=== PATIENT | male | born 1940 | race Caucasian/White ===

== ENCOUNTER 2022-04-24 10:53 | Observation (INO) | payer MEDICARE, SELFPAY ==
[2022-04-24] VITALS (24 sets, daily range): BP systolic 133–172; BP diastolic 81–113; PULSE 61–94; RESP 12–32; TEMP 36.3–37.3; O2SAT 90–95; BMI 22.7
--- NOTE | 2022-04-24 11:03 | CT_ITS ---
WS: [id number] CT chest wo con [id number] REASON FOR EXAM: fall/ R ribs and R thoracic back pain IV CONTRAST ADMINISTERED: None. TOTAL EXAM DLP: 687.[address] scans at [facility] use at least one of these dose optimization techniques: automat ed exposure control; mA and/or kV adjustment per patient size (includes targeted exams where dose is matched to clinical indication); or iterative reconstruction. FINDINGS: Significant tortuosity and ectasia of the ascending and descending thoracic aorta. No focal aneurysma l dilatation. Maximum diameter of the ascending aorta 4.5 cm. Maximum diameter of the descending thor acic aorta 4 cm. No mediastinal mass, hemorrhage, or adenopathy. No hilar adenopathy. Moderate changes of central lobar emphysema. Consolidation in the posterior right lower lung associated with a high attenuation pleural fluid smal l/moderate volume. No pneumothorax. There are mild/moderate displaced acute fractures of right seventh and eighth ribs posterior laterall y. There is an oblique fracture through the inferior most aspect of the right scapula. There is moderate degenerative spondylosis within the thoracic spine. No compression deformity or oth er significant vertebral body abnormality. CT/CT chest wo con [id number] IMPRESSION: Significant tortuosity and ectasia of the thoracic aorta and four-chamber cardi ac enlargement. Right rib and scapular fractures. Small to moderate volume hemothorax with no pneumothorax identified. Consolidation in the right lower lobe.
--- NOTE | 2022-04-24 11:03 | ED_ITS ---
HPI - General Adult General: Chief complaint: Fall Stated complaint: fall, side pain Time Seen by Provider: 04/24/22 10:59 History of Present Illness: Patient is a 81-year-old male with no known past medical history presents the emergency after an episode of fall. Patient tells me that he was taking a shower yesterday when he slipped and fell and hurt his right side. Patient complains of right rib pain and right upper back pain. Patient cannot remember whether he hit his head. Patient denies LOC or any anticoagulation use. Patient denies any associated chest pain, shortness or palpitation prior to the episode of fall. No other complaints of pain more. Onset: 845pm Duration:once Location:home Severity:moderate Associated symptoms: Reports chest pain (+R lateral chest pain); Deny dyspnea, nausea, rash, palpitations or vomiting Review of Systems Const: Denies: fever(s) or chills Eyes: Denies: change in vision ENMT: Denies: mouth pain Card: Reports: chest pain (+R lateral chest pain); Denies: palpitations Resp: Denies: dyspnea or non-productive cough GI: Denies: abdominal pain, nausea, vomiting or diarrhea : Denies: dysuria Musc: Reports: back pain (+thoracic back pain) and other (+R sided rib pain); Denies: extremity pain Skin/Breast: Denies: rash or new lesions Neuro: Denies: weakness in extremities Psych: Reports: other (Normal mood) Andres/Lymph: Denies: easy bruising [facility] ED PFSH: Medical History (Updated 04/24/22 @ 23:14 by Jennifer Lagunas RN) No pertinent past medical history Social History (Updated 04/24/22 @ 23:12 by Jennifer Lagunas RN) Smoking and tobacco status: never smoked Alcohol intake: current Alcohol intake frequency: few times a month Desire information about alcohol rehabilitation?: No Substance/Drug Use: never Physical Exam Const: COMMON NORMALS: alert HENMT: COMMON NORMALS: atraumatic HEAD & SCALP: atraumatic MOUTH: moist mucous membranes not abnormal Eye: COMMON NORMALS: EOMs intact bilaterally and conjunctivae normal CONJUNCTIVA: Yes conjunctivae normal Neck/C-Spine: COMMON NORMALS: full ROM and supple Chest: OTHER: +moderate R lateral chest tenderness to palpation Resp: COMMON NORMALS: normal respiratory effort and clear to auscultation bilaterally AUSCULTATION: clear to auscultation bilaterally Cardio: COMMON NORMALS: regular rate RATE: regular rate GI: COMMON NORMALS: Soft to palpation and non-tender PALPATION: Yes Soft to palpation Extremity: COMMON NORMALS: full ROM OTHER: +L forearm skin tear Neuro: SENSORIUM/ORIENTATION: Yes alert MOTOR EXAM: No Abnormal motor strength present and Other motor observations present (no focal motor deficits) Psych: COMMON NORMALS: speech normal SPEECH: Yes normal speech MOOD & AFFECT: Yes euthymic mood Course Vital Signs: Vital signs: Vital Signs Temperature 97.7 F 04/26/22 07:00 Pulse Rate 77 04/26/22 15:28 Respiratory Rate 17 04/26/22 18:26 Blood Pressure 116/70 04/26/22 16:00 Pulse Oximetry 93 04/26/22 15:28 Oxygen Delivery Me thod 04/26/22 15:28 Oxygen Flow Rate 2 04/26/22 15:28 MDM - General Adult Medical Decision Making Patient is a 81-year-old male with no known past medical history presents the emergency after an episode of fall with complaints of right lateral ribs and back pain. On physical exam, patient is moderate tenderness palpation over the right lateral chest and back area. Imaging study showed multiple right-sided rib fractures scapular fracture and mild to moderate hemothorax without pneumothorax. I discussed case with general surgeon Dr. Raphael who will follow patient and recommended observation. Patient required multiple doses of pain medicine with improvement in pain. He continues to be satting well on room air. Disposition: admission Lab Data : 04/26/22 03:50 04/26/22 03:[address] 04/24/22 11:03 IMPRESSION: Significant tortuosity and ectasia of the thoracic aorta and four-chamber cardiac enlargement. Right rib and scapular fractures. Small to moderate volume hemothorax with no pneumothorax identified. Consolidation in the right lower lobe. Head CT 04/24/22 11:03 IMPRESSION: No acute intracranial abnormality. Forearm X-Ray 04/24/22 11:38 IMPRESSION: No acute abnormality. Abdomen/Pelvis CT 04/24/22 12:02 IMPRESSION: No acute abnormality of the pelvis or abdomen including bony structure. Incidental findings in the abdomen and pelvis as above. 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 There is no acute abnormality of the thoracic aorta. The hemothorax is due to the rib fracture. There is a small amount of subcutaneous emphysema and a small amount of air in the right pleural space associated with the rib fractures unchanged from the noncontrast exam. Chest X-Ray 04/26/22 08:33 IMPRESSION: 1. Mildly displaced right 7th and 8th rib fractures are similar to the prior study. 2. No definite residual right pleural effusion is seen. Evaluation for pleural effusion/hemothorax is suboptimal with a single portable AP view of the chest. Laboratory Results WBC 7.9 10^3/uL (4.0-10.0) 04/24/22 11:30 RBC 5.27 10^6/uL (4.1-5.3) 04/24/22 11:30 Hgb 17.0 g/dL (11.7-16.6) H 04/24/22 11:30 Hct 50.5 % (42.0-52.0) 04/24/22 11:30 MCV 95.8 fl (80-94) H 04/24/22 11:30 MCH 32.3 pg (28.0-34.0) 04/24/22 11:30 MCHC 33.7 g/dL (30.0-36.0) 04/24/22 11:30 RDW 13.6 % (12.1-15.1) 04/24/22 11:30 Plt Count 156 10^3/cmm (130-400) 04/24/22 11:30 MPV 12.4 fL (7.4-10.4) H 04/24/22 11:30 Neut % (Auto) 74.2 % 04/24/22 11:30 Lymph % (Auto) 16.3 % 04/24/22 11:30 [place] % (Auto) 8.7 % 04/24/22 11:30 Eos % (Auto) 0.0 % 04/24/22 11:30 Baso % (Auto) 0.4 % 04/24/22 11:30 Neut # (Auto) 5.84 10^3/uL (1.8-7.7) 04/24/22 11:30 Lymph # (Auto) 1.3 10^3/uL (0.8-4.8) 04/24/22 11:30 [place] # (Auto) 0.7 10^3/uL (0.2-0.9) 04/24/22 11:30 Eos # (Auto) 0.0 10^3/uL (0.0-0.8) 04/24/22 11:30 Baso # (Auto) 0.0 10^3/uL (0.0-0.1) 04/24/22 11:30 Nucleated RBC % (auto) 0 % 04/24/22 11:30 Nucleated RBCs # 0.0 /100WBC 04/24/22 11:30 Sodium 131 mmol/L (136-145) L 04/24/22 11:30 Potassium 4.2 mmol/L (3.5-5.1) 04/24/22 11:30 Chloride 94 mmol/L (98-107) L 04/24/22 11:30 Carbon Dioxide 22 mmol/L (22-29) 04/24/22 11:30 Anion Gap 19.2 (5-19) H 04/24/22 11:30 BUN 11 mg/dL (8-23) 04/24/22 11:30 Creatinine 0.9 mg/dL (0.7-1.2) 04/24/22 11:30 GFR Calculation Not Reportable 04/24/22 11:30 Glucose 119 mg/dL (65-115) H 04/24/22 11:30 Calculated Osmolality 273 mOsm/kg (285-295) L 04/24/22 11:30 Calcium 9.4 mg/dL (8.5-10.5) 04/24/22 11:30 Imaging Data Other Imaging: Radiologist's impression: [address] [address] [address] Scan Report Signed Patient: George William Unit #: [id number] : 1940 Age/Sex: 81 / M ADM Date: 04/24/22 Loc: ER Room/Bed: Attending Dr: Ordering Provider/Ordering MD: Jeff Vazquez MD Date of Service: 04/24/22 Procedure(s): CT angio chest 74207 Accession Number(s): [id number] Report Number: [id number] WS: [email or web address] CT angio chest [id number] REASON FOR EXAM: hemothorax? high mechanism of injury/ eval aorta TECHNIQUE: Coronal and sagittal 2-D and MIP reformations. IV CONTRAST ADMINISTERED: Omnipaque 350 95 mL TOTAL EXAM DLP: 951.[address] scans at [facility] use at least one of these dose optimiza tion techniques: automated exposure control; mA and/or kV adjustment per patient size (includes targeted exams where dose is matched to clinical indication); or iterative reconstruction. FINDINGS: Previously noted on noncontrast chest CT: right rib fractures, right scapular fracture, small right hemothorax, right lower lung consolidation, four-chamber cardiomegaly and significant tortuosity and ectasia of the ascending and descending thoracic aorta. Also, no hyperattenuating mural hematoma was seen within the ascending or descending thoracic aorta. Contrast-enhanced imaging demonstrates: Normal pulmonary arteries. Tortuous ectatic ascending and descending thoracic aorta. Ascending aorta maximum diameter 4 cm. This represents mild aneurysmal dilatation. Descending thoracic aorta maximum diameter 3.8 cm. This is mild/moderate aneurysmal dilatation. Moderate amount of mural thrombus in the descending thoracic aorta. (This is not a dissection. Mural thrombus is a common finding in aneurysms.) No hyperattenuating mural hematoma in the thoracic aorta. There is a small amount of subcutaneous emphysema associated with the right rib fractures. There may also be a very small amount of air in the right pleural space. These findings were present on the previous noncontrast examination and are unchanged. 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 There is no acute abnormality of the thoracic aorta. The hemothorax is due to the rib fracture. There is a small amount of subcutaneous emphysema and a small amount of air in the right pleural space associated with the rib fractures unchanged from the noncontrast exam. ? Dictated By: Jose Fernández Jr, MD Signed By: Jose Fernández Jr, MD Signed Date/Time: 04/24/22 1428 DD/ [address] [address] [address] Scan Report Signed Patient: eGorge William Unit #: [id number] : 1940 Age/Sex: 81 / M ADM Date: 04/24/22 Loc: ER Room/Bed: Attending Dr: Ordering Provider/Ordering MD: Jeff Vazquez MD Date of Service: 04/24/22 Procedure(s): CT abdomen pelvis wo con [id number] Accession Number(s): [id number] Report Number: [id number] WS: [email or web address] CT abdomen pelvis wo con [id number] REASON FOR EXAM: FALL IV CONTRAST ADMINISTERED: None. TOTAL EXAM DLP: 1021.[address] scans at [facility] use at least one of these dose optimization techniques: automated exposure control; mA and/or kV adjustment per patient size (includes targeted exams where dose is matched to clinical indication); or iterative reconstruction. FINDINGS: ABDOMEN: Liver and spleen are unremarkable. Pancreas and gallbladder are unremarkable. Normal adrenal glands. Bilateral renal masses, presumed cysts. No bowel abnormality. No abdominal wall abnormality. No free peritoneal fluid or focal fluid collection. Aortic stent graft. Mild to moderate degenerative spondylosis in the lumbar spine with no compression deformity or other focal vertebral body abnormality. 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 PELVIS: No mass or adenopathy. No free fluid or focal fluid collection. 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 No pelvic fracture. No hip fracture. CT/CT abdomen pelvis wo con [id number] IMPRESSION: No acute abnormality of the pelvis or abdomen including bony structure. Incidental findings in the abdomen and pelvis as above. ? Dictated By: Jose Fernández Jr, MD Signed By: Jose Fernández Jr, MD Signed Date/Time: 04/24/22 1237 DD/ 1230 George William??81??M??1940 ? Allergy/Adv: aspirin, naproxen, Sulfa (Sulfonamide Antibiotics) (More??) Close Chest CTA (Signed) Jose Fernández Jr - 04/24/22 Abdomen/Pelvis CT (Signed) Jose Fernández Jr - 04/24/22 Forearm X-Ray (Signed) Jose Fernández Jr - 04/24/[address] (Signed) Jose Fernández Jr - 04/24/[address] (Signed) Jose Fernández Jr - 04/24/22 Launch?[facility] [address] [facility] 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 The left radius and ulna are intact with no acute fracture. There is plate and screw fixation of previous metadiaphyseal fracture of the distal left radius. No soft tissue abnormality. XR/XR forearm LT 2V 59553 IMPRESSION: No acute abnormality. ? ? Dictated By: Jose Fernández Jr, MD Signed By: Jose Fernández Jr, MD Signed Date/Time: 04/24/22 1251 DD/ 1243 Discharge Plan Discharge Patient Disposition: Admitted As Inpatient Admit Provider: Pete Tucker Clinical Impression: Closed rib fracture, Hemothorax, Closed right scapular fracture Condition: Stable Coding Level of Care Code ED Talent Director for Chg Fwd Exam Comprehensive
--- NOTE | 2022-04-24 11:03 | CT_ITS ---
WS: [email or web address] CT head wo con* [id number] REASON FOR EXAM: fall IV CONTRAST ADMINISTERED: None TOTAL EXAM DLP: 1202.[address] scans at [facility] use at least one of these dose optimization techniques: automat ed exposure control; mA and/or kV adjustment per patient size (includes targeted exams where dose is matched to clinical indication); or iterative reconstruction. FINDINGS: No midline shift or other significant mass effect. No findings of intracranial hemorrhage. No significant brain parenchymal abnormality. Symmetric atrophy with mild prominence of the lateral ventricles. Base of skull and bony calvarium are intact. CT/CT head wo con* [id number] IMPRESSION: No acute intracranial abnormality.
--- NOTE | 2022-04-24 11:11 | PC.NURSE ---
Addendum entered by Jossie Shrestha RN 04/24/22 11:13: No abnormalities visualized to site of pain. Original Note: pt reports around 1600 yesterday pt slipped in the shower and fell. c/o right sided torso/back pain. reports brief LOC. reports baseline has dizziness and lightheadedness unchanged. pt denies CP, reports dyspnea that started after the fall. Denies being on blood thinners and denies SILVA. 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 Skin pink/warm/dry, small skin tear noted to left forearm with no active bleeding. Loose, wet cough noted, lung sounds present and clear throughout.
[2022-04-24] MEDS: morphine 4 mg/mL SDV 1 mL IVP (11:21)
[2022-04-24] MEDS: lidocaine 5% Patch 1 PATCH TOPICAL (11:28)
--- NOTE | 2022-04-24 11:38 | XR_ITS ---
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 The left radius and ulna are intact with no acute fracture. There is plate and screw fixation of prev ious metadiaphyseal fracture of the distal left radius. No soft tissue abnormality. XR/XR forearm LT 2V [id number] IMPRESSION: No acute abnormality.
--- NOTE | 2022-04-24 12:02 | CT_ITS ---
WS: [email or web address] CT abdomen pelvis wo con [id number] REASON FOR EXAM: FALL IV CONTRAST ADMINISTERED: None. TOTAL EXAM DLP: 1021.[address] scans at [facility] use at least one of these dose optimization techniques: automat ed exposure control; mA and/or kV adjustment per patient size (includes targeted exams where dose is matched to clinical indication); or iterative reconstruction. FINDINGS: ABDOMEN: Liver and spleen are unremarkable. Pancreas and gallbladder are unremarkable. Normal adrenal glands. Bilateral renal masses, presumed cysts. No bowel abnormality. No abdominal wall abnormality. No free peritoneal fluid or focal fluid collection. Aortic stent graft. Mild to moderate degenerative spondylosis in the lumbar spine with no compression deformity or other focal vertebral body abnormality. 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 PELVIS: No mass or adenopathy. No free fluid or focal fluid collection. 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 No pelvic fracture. No hip fracture. CT/CT abdomen pelvis wo con [id number] IMPRESSION: No acute abnormality of the pelvis or abdomen including bony structure. Incidental findings in the abdomen and pelvis as above.
--- NOTE | 2022-04-24 12:59 | CT_ITS ---
WS: [email or web address] CT angio chest [id number] REASON FOR EXAM: hemothorax? high mechanism of injury/ eval aorta TECHNIQUE: Coronal and sagittal 2-D and MIP reformations. IV CONTRAST ADMINISTERED: Omnipaque 350 95 mL TOTAL EXAM DLP: 951.[address] scans at [facility] use at least one of these dose optimization techniques: automat ed exposure control; mA and/or kV adjustment per patient size (includes targeted exams where dose is matched to clinical indication); or iterative reconstruction. FINDINGS: Previously noted on noncontrast chest CT: right rib fractures, right scapular fracture, small right h emothorax, right lower lung consolidation, four-chamber cardiomegaly and significant tortuosity and e ctasia of the ascending and descending thoracic aorta. Also, no hyperattenuating mural hematoma was s een within the ascending or descending thoracic aorta. Contrast-enhanced imaging demonstrates: Normal pulmonary arteries. Tortuous ectatic ascending and descending thoracic aorta. Ascending aorta maximum diameter 4 cm. This represents mild aneurysmal dilatation. Descending thoracic aorta maximum diameter 3.8 cm. This is mild/moderate aneurysmal dilatation. Moderate amount of mural thrombus in the descending thoracic aorta. (This is not a dissection. Mural thrombus is a common finding in aneurysms.) No hyperattenuating mural hematoma in the thoracic aorta. There is a small amount of subcutaneous emphysema associated with the right rib fractures. There may also be a very small amount of air in the right pleural space. These findings were present on the pre vious noncontrast examination and are unchanged. 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 There is no acute abnormality of the thoracic aorta. The hemothorax is due to t he rib fracture. There is a small amount of subcutaneous emphysema and a small amount of air in the right pleural space associated with the rib fractures unchanged from the no ncontrast exam.
[2022-04-24 13:18] LABS: Basophils % 0.4 %; Hematocrit 50.5 % (42.0-52.0); Lymphocytes # 1.3 10^3/uL (0.8-4.8); Lymphocytes % 16.3 %; Mean Corpuscular HGB Conc 33.7 g/dL (30.0-36.0); Mean Corpuscular Hemoglobin 32.3 pg (28.0-34.0); Mean Corpuscular Volume 95.8 fl (80-94); Mean Platelet Volume 12.4 fL (7.4-10.4); Monocytes # 0.7 10^3/uL (0.2-0.9); Monocytes % 8.7 %; Neutrophils # 5.84 10^3/uL (1.8-7.7); Neutrophils % 74.2 %; Nucleated Red Blood Cells % 0 %; Platelet Count 156 10^3/cmm (130-400); Red Blood Count 5.27 10^6/uL (4.1-5.3); Red Cell Distribution Width 13.6 % (12.1-15.1); White Blood Count 7.9 10^3/uL (4.0-10.0)
[2022-04-24 13:21] LABS: Anion Gap 19.2 (5-19); Blood Urea Nitrogen 11 mg/dL (8-23); Calcium 9.4 mg/dL (8.5-10.5); Carbon Dioxide 22 mmol/L (22-29); Chloride 94 mmol/L (98-107); Creatinine Clr Calc Pharmacy 62.9776; Glucose 119 mg/dL (65-115); Osmolality Calculated 273 mOsm/kg (285-295); Potassium 4.2 mmol/L (3.5-5.1); Sodium 131 mmol/L (136-145)
[2022-04-24] MEDS: morphine 4 mg/mL SDV 1 mL 2 MG IVP ×2 (13:22→19:09)
--- NOTE | 2022-04-24 14:22 | PC.NURSE ---
pt resting in bed, asleep. respirations even and unlabored.
--- NOTE | 2022-04-24 15:49 | PC.NURSE ---
pt resting in bed, asleep. respirations even and unlabored. remains on VS monitor
--- NOTE | 2022-04-24 16:22 | PC.NURSE ---
pt resting in bed, pillow adjusted for comfort, lights dimmed per request. denies needs at this time.
--- NOTE | 2022-04-24 16:22 | PM.HP ---
Providers/Chief Complaint Chief Complaint: fall, side pain History of Present Illness George William is a 81 year old male with no significant past medical history, was brought in from home with chief complaint of Right rib cage pain, after he experienced mechanical fall at home, he was getting out of the shower, when he slipped on the floor And hit the right side of chest. Currently is complaining of right-sided rib cage pain with inspiration and coughing. He denied any loss of consciousness or dizziness, hitting his head. Pertinent imaging studies done in the ER: CT head without contrast: No acute interval pathology CT abdomen and pelvis: No acute abnormality CTA chest: Small amount of subcutaneous emphysema and a small amount of air in the right pleural space associated with the rib fractures.small right hemothorax.right lower lung consolidation. CT chest without contrast:Right rib and scapular fractures. Small to moderate volume hemothorax with no pneumothorax identified. Consolidation in the right lower lobe. Pertinent labs: WBC 7.9 , H&H:17/50, PLT : 156 , serum sodium 131 serum potassium 4.2, BUN 7 creatinine:11/0.9 Review of Systems General: Reports: 10 or more systems reviewed and unremarkable except in HPI and below Const: Denies: fever(s), chills, body aches, change in appetite or diaphoresis Card: Denies: palpitations, edema, swelling of feet/ankles, dyspnea on exertion, orthopnea or leg pain with exertion Resp: Reports: pain on inspiration; Denies: dyspnea or wheezing GI: Denies: abdominal pain, nausea, vomiting, diarrhea or constipation : Denies: flank pain or difficulty urinating Musc: Denies: back pain, extremity pain or extremity swelling Neuro: Denies: headache(s), difficulty walking or confusion Medications/Allergies Home Medications Medication Instructions Recorded Confirmed Last Taken Type No Known Home Medications 04/24/22 04/24/22 Unknown History Allergies Allergy/AdvReac Type Severity Reaction Status Date / Time aspirin Allergy ALGY-Anaphy Verified 04/24/22 11:31 laxis naproxen [From Anaprox] Allergy ALGY-Hives Verified 04/24/22 11:31 Sulfa (Sulfonamide Allergy ALGY-Difficulty Verified 04/24/22 11:31 Antibiotics) Swallowing PFSH Acute PFSH: Medical History No pertinent past medical history Social History Smoking and tobacco status: never smoked Alcohol intake: never Substance/Drug Use: never Vitals/I&O/Wt Last Vital Signs Temp 97.3 F L 04/24/22 10:55 Pulse 79 04/24/22 15:00 Resp 22 H 04/24/22 15:00 BP 143/101 04/24/22 15:00 Pulse Ox 93 04/24/22 15:00 O2 Del Method 04/24/22 10:55 Weight last 48 hrs Weight 69.853 kg Physical Exam Const: COMMON NORMALS: patient oriented x3 Resp: COMMON NORMALS: normal respiratory effort, No retractions, No use of accessory muscles and clear to auscultation bilaterally EFFORT & INSPECTION: Yes symmetric chest movement AUSCULTATION: clear to auscultation bilaterally Cardio: COMMON NORMALS: regular rate, regular rhythm, S1 normal heart sound present, S2 normal heart sound present, No gallops present (Cardio), No murmurs present (Cardio), No rub (Cardio) and Peripheral pulses 2+ throughout RATE: regular rate RHYTHM: regular rhythm HEART SOUNDS: S1 normal heart sound present and S2 normal heart sound present PERIPHERAL PULSES: Peripheral pulses 2+ throughout GI: COMMON NORMALS: Normal to inspection, nondistended, normoactive bowel sounds present, Soft to palpation, non-tender, No hepatosplenomegaly present and no masses AUSCULTATION: Yes normoactive bowel sounds PALPATION: Yes Soft to palpation and Yes No hepatosplenomegaly present RECTAL EXAM: Yes deferred Neuro: COMMON NORMALS: patient oriented x3 Data : 04/24/22 11:30 04/24/22 11:30 A&P Assessment and plan (1) Closed rib fracture: Status: Acute (2) Hemothorax: Status: Acute (3) Closed right scapular fracture: Status: Acute (4) Subcutaneous emphysema: Status: Acute (5) Pneumothorax: Status: Acute Plan 81 year old male with no significant past medical history, was brought in from home with chief complaint of Right rib cage pain, after he experienced mechanical fall at home, he was getting out of the shower, when he slipped on the floor And hit the right side of chest. Currently is complaining of right-sided rib cage pain with inspiration and coughing. He denied any loss of consciousness or dizziness, hitting his head. Assessment: [id number] right hemothorax Closed right scapular fracture Right rib fracture Small subcutaneous emphysema Plan: Serial x-ray chest Pain control Incentive spirometer Empirically on antibiotic DVT prophylaxis: On SCDs CODE STATUS: Full code Attestations Medical Necessity Statement*: Just been hospitalized for management of right rib fracture, right hemothorax. Coding Level of Care Code Acute Cnc Set Up Operator for [facility] Fwd Diagnoses Closed rib fracture S22.39XA Hemothorax J94.2 Closed right scapular fracture S42.101A Subcutaneous emphysema T79.7XXA Pneumothorax J93.9
[2022-04-24] MEDS: sodium chloride 0.9% 1,000 ML 75 ML IV (16:50)
--- NOTE | 2022-04-24 17:08 | P.CONIM_ITS ---
Providers/Reason For Consult Consulting Physician/Specialty*: Redd Luke Reason for Consult*: Ground-level fall, rib fractures Requesting Physician: Dr. Vazquez Attending Physician: Pete Tucker MD History of Present Illness History of Present Illness George William is a 81 year old male. He [facility]. He slipped in the shower and fell on 04/23/2022. Did not hit his head, denies loss of consciousness, landed on the right side of the chest, it happened later in the evening, he was complaining of pain however did not seek medical attention right away. In the morning of 04/24 his pain did not improve and he decided to seek medical attention. He complains of pain in the right chest, more on the lateral side and back, up to 8/10, much worse with any movements, coughing, deep breathing. Denies fever, chills, pain on the left side of the chest. Denies any abdominal pain. History of UTI. Frequent. He never had a colonoscopy. He specifically denies any coronary artery disease, history of stroke, diabetes, hypertension. 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 He lives alone and has no family members left alive. Anaphylactic reaction to nonsteroidal anti-inflammatory drugs Review of Systems Narrative: 10 point review of systems is negative except as per HPI Medications/Allergies Home Medications Medication Instructions Recorded Confirmed Last Taken Type No Known Home Medications 04/24/22 04/24/22 Unknown History Allergies Allergy/AdvReac Type Severity Reaction Status Date / Time aspirin Allergy ALGY-Anaphy Verified 04/24/22 11:31 laxis naproxen [From Anaprox] Allergy ALGY-Hives Verified 04/24/22 11:31 Sulfa (Sulfonamide Allergy ALGY-Difficulty Verified 04/24/22 11:31 Antibiotics) Swallowing Current Medications Generic Name Dose Route Start Last Admin Trade Name Freq PRN Reason Stop Dose Admin Sodium Chloride 1,000 mls @ 75 mls/hr 04/24/22 16:45 04/24/22 16:50 Sodium Chloride 0.9% IV 75 mls/hr .[id number] STEVE Administration PFSH Acute PFSH: Medical History No pertinent past medical history Social History Smoking and tobacco status: never smoked Alcohol intake: never Substance/Drug Use: never Vitals/I&O/Wt Last Vital Signs Temp 97.3 F L 04/24/22 10:55 Pulse 70 04/24/22 16:32 Resp 19 H 04/24/22 16:32 BP 142/88 04/24/22 16:32 Pulse Ox 95 04/24/22 16:32 O2 Del Method 04/24/22 10:55 Weight last 48 hrs Weight 154 lb Physical Exam Narrative: General: Mild distress secondary to pain on the right side of the chest/back Psych: [AAOx3] Eyes: [sclerae are white] Head/ENT: [normocephalic, symmetric] CV: [regular] pulse, [not tachychardic], no JVD Lungs: Painful to palpation on the right side. Decreased air entry on the right side at the base. Secondary to splinting. Abdomen: [soft, ND, mild tenderness to palpation on the right side related to the rib fractures. No peritoneal signs.] Ext: [no obvious traumatic deformities] Skin: warm Data : 04/24/22 11:30 04/24/22 11:30 Other data: I reviewed CT scan. The patient has at least 6 acute rib fractures on the right, possibly tomorrow however they may be old 1. He has a scapular fracture. Minimal subcutaneous emphysema and small hemothorax.Pulmonary contusion on the right side A&P Assessment and plan (1) Fall from ground level: Status: Acute (2) Pneumothorax: Status: Acute (3) Subcutaneous emphysema: Status: Acute (4) Closed rib fracture: Status: Acute (5) Hemothorax: Status: Acute (6) Closed right scapular fracture: Status: Acute (7) Hyponatremia: Status: Acute Plan 6 rib fractures on the right, scapular fracture, he is already splinting, given his age he is at high risk of complications including pneumonia, DVT, . I recommend admit the patient to the ICU and monitor his breathing capacity as well as perform frequent reassessment with RT and respiratory exercise. Opioids and muscle relaxant for pain control. He seems to be allergic to nonsteroidal anti-inflammatory drugs, allergy is anaphylaxis. Discussed with Dr. Balbuena and Dr. Tucker. I discussed the natural course of rib fractures in a frail 81-year-old gentleman and stressed the importance of respiratory exercise, pulmonary toilet and being out of bed and pain control. Hyponatremia is probably chronic in nature. I will defer management to the medicine team. Right scapular fracture, likely nonoperative, orthopedics were consulted, pending evaluation. - Limit amount of IV fluids given pulmonary contusion, okay for a regular diet. Out of bed to chair at least twice a day. Ambulate at least twice a day. Fall precautions. Physical therapy. - Lovenox for DVT px; Coding Level of Care Code Acute Groundwater Monitoring Technician for [facility] Fwd Diagnoses Fall from ground level W18.30XA Pneumothorax J93.9 Subcutaneous emphysema T79.7XXA Closed rib fracture S22.39XA Hemothorax J94.2 Closed right scapular fracture S42.101A Hyponatremia E87.1
[2022-04-24] MEDS: guaiFENesin 600 mg Tablet PO (18:10)
--- NOTE | 2022-04-24 18:17 | PC.NURSE ---
report called to [facility]. No bed currently in room, ICU will call ED when bed in room.
[2022-04-24] MEDS: oxyCODONE-APAP 5-325 mg Tablet 1 TAB PO (19:53)
[2022-04-24] MEDS: cefTRIAXone 1,000 MG in sodium chloride 0.9% (plus) 50 ML 100 MG IV (19:53)
[2022-04-24 21:02] LABS: INR 1.08 (0.8-1.2); Partial Thromboplastin Time 29.9 SECONDS (23.9-36.7)
--- NOTE | 2022-04-24 21:30 | PC.NURSE ---
Pt has significant clubbing of finger nails and toenails.
[2022-04-24] MEDS: enoxaparin 40 mg/0.4 mL Syringe SUBCUT (21:31)
[2022-04-24] MEDS: cyclobenzaprine 10 mg Tablet PO (21:31)
--- NOTE | 2022-04-24 23:57 | PC.NURSE ---
Pt reports that he does not need to urinate, because he had an incontinent episode right before he was transported to our unit.
[2022-04-25] VITALS (51 sets, daily range): BP systolic 110–191; BP diastolic 65–121; PULSE 55–82; RESP 10–30; TEMP 36.5–37; O2SAT 80–98
[2022-04-25] MEDS: oxyCODONE-APAP 5-325 mg Tablet 1 TAB PO ×3 (03:42→18:13)
[2022-04-25 04:16] LABS: Basophils % 0.3 %; Hematocrit 44.1 % (42.0-52.0); Hemoglobin 14.6 g/dL (11.7-16.6); Lymphocytes # 1.2 10^3/uL (0.8-4.8); Mean Corpuscular HGB Conc 33.1 g/dL (30.0-36.0); Mean Corpuscular Hemoglobin 31.7 pg (28.0-34.0); Mean Corpuscular Volume 95.9 fl (80-94); Mean Platelet Volume 12.1 fL (7.4-10.4); Monocytes # 0.9 10^3/uL (0.2-0.9); Monocytes % 13.3 %; Neutrophils # 4.34 10^3/uL (1.8-7.7); Neutrophils % 66.9 %; Nucleated Red Blood Cells % 0 %; Platelet Count 128 10^3/cmm (130-400); Red Cell Distribution Width 13.8 % (12.1-15.1); White Blood Count 6.5 10^3/uL (4.0-10.0)
[2022-04-25 04:38] LABS: Anion Gap 13.2 (5-19); Blood Urea Nitrogen 13 mg/dL (8-23); Calcium 8.7 mg/dL (8.5-10.5); Carbon Dioxide 23 mmol/L (22-29); Chloride 99 mmol/L (98-107); Glucose 129 mg/dL (65-115); Osmolality Calculated 274 mOsm/kg (285-295); Potassium 4.2 mmol/L (3.5-5.1); Sodium 131 mmol/L (136-145)
--- NOTE | 2022-04-25 05:00 | XRR_ITS ---
PROCEDURE INFORMATION: Exam: XR Chest Exam date and time: 04/25/2022 4:39 AM Age: 81 years old Clinical indication: Patient HX: F/u for RT hemothorax post fall yesterday. ; Additional info: RT hemothorax evaluation TECHNIQUE: Imaging protocol: Radiologic exam of the chest. Views: 1 view. COMPARISON: No relevant prior studies available. FINDINGS: Lungs: Low lung volumes. Hazy opacity in the right lower lung base. Pleural spaces: No pneumothorax identified. Heart/Mediastinum: The heart appears enlarged for size with be extension weighted by low lung volumes. Bones/joints: Fractured right 7th and 8th ribs. Scoliotic curvature of the spine. XR/XR chest 1V portable [id number] IMPRESSION: 1. Fractured right 7th and 8th ribs. 2. Hazy opacity in the right lower lung may be consistent with small pleural effusion versus contusional consolidation.
[2022-04-25] MEDS: morphine 4 mg/mL SDV 1 mL IVP (06:12)
[2022-04-25] MEDS: guaiFENesin 600 mg Tablet PO ×2 (07:56→18:13)
[2022-04-25] MEDS: cyclobenzaprine 10 mg Tablet PO ×3 (07:56→21:18)
--- NOTE | 2022-04-25 10:11 | PM.PN ---
Subjective Subjective: He is doing well in the ICU. Pain is well controlled. No other acute events overnight Pending evaluation of the orthopedic surgeon. Vitals/I&O/Wt Last Vital Signs Temp 98.2 F 04/25/22 07:45 Pulse 69 04/25/22 09:15 Resp 23 H 04/25/22 09:15 BP 170/121 04/25/22 09:15 Pulse Ox 80 L 04/25/22 09:15 O2 Del Method 04/25/22 06:00 O2 Flow Rate 2 04/25/22 06:00 04/24/22 04/25/22 04/25/22 22:59 06:59 14:59 Intake Total 50 / 50 120 / 170 120 / 120 Output Total 500 / 500 200 / 200 Balance 50 / 50 -380 / -330 -80 / -80 Weight last 48 hrs Weight 148 lb 12.8 oz Weight 151 lb Weight 154 lb Physical Exam Narrative: General: Mild distress secondary to pain on the right side of the chest/back, mostly with deep breath Psych: [AAOx3]. He has a lot of shakiness in his hands, most likely undiagnosed Parkinson disease. Eyes: [sclerae are white] Head/ENT: [normocephalic, symmetric] CV: [regular] pulse, [not tachychardic], no JVD Lungs: Painful to palpation on the right side. Decreased air entry on the right side at the base. Secondary to splinting. Abdomen: [soft, ND, mild tenderness to palpation on the right side related to the rib fractures. No peritoneal signs.] Ext: [no obvious traumatic deformities] Skin: warm Data : 04/25/22 03:26 04/25/22 03:26 Other data: I reviewed x-ray. Pulmonary contusion and small hemothorax at the base of the right lung. Rib fractures. A&P Assessment and plan (1) Fall from ground level: Status: Acute (2) Pneumothorax: Status: Acute (3) Subcutaneous emphysema: Status: Acute (4) Closed rib fracture: Status: Acute (5) Hemothorax: Status: Acute (6) Closed right scapular fracture: Status: Acute (7) Hyponatremia: Status: Acute Plan His incentive parameter is only 350 this morning. He is splinting and is not able to take a deep breath at all. High risk for complications given his advanced age. I discussed the necessity of respiratory exercise and deep breathing with the patient. He will continue to do it. He is receiving appropriate pain medications and states his pain is overall controlled. White blood cell count is normal today, afebrile. X-ray shows consolidation at the base of the lung. The patient definitely has difficulties coughing and expectorating all the mucus. He was started on prophylactic cefepime given consolidation at the right lung. I will defer management of antibiotic therapy to medicine. Discussed with Dr. Tucker. He needs aggressive physical therapy and respiratory therapy. Given very low ISS, I would recommend continuing his care in the ICU for next 24 hours. We will reassess tomorrow. Pending orthopedic consult, most likely nonoperative I discussed the care with his bedside nurse as well. Okay to get the patient out of bed with out physical therapy, he was fully independent and ambulatory before the injury and should be able to get out of bed and walk with minimal help, bedside nurse will suffice. Urine was reportedly dark and unpleasant smelling, I will order UA with reflex cultures. Attestations Medical Necessity Statement*: Rib fractures Coding Level of Care Code Acute Cigar Head Perforator for g Fwd Diagnoses Fall from ground level W18.30XA Pneumothorax J93.9 Subcutaneous emphysema T79.7XXA Closed rib fracture S22.39XA Hemothorax J94.2 Closed right scapular fracture S42.101A Hyponatremia E87.1
--- NOTE | 2022-04-25 13:14 | PC.CHAP ---
Pastoral Care Encounter/Spiritual Assessment Type of Contact [] Declined wardrobe manager visit [] Patient/Family/Request visit [] Outpatient visit [] Follow-up visit [] Physician referral [] Code/Alert [x] Routine visit [] Staff referral [] Actively dying [x] Patient sleeping [] Family support [] [] Out of room [] Palliative care [] [] Receiving care in room [] Pre-surgical visit [] Trauma [] Long length of stay [x] ICU visit [] Other: Relational/Emotional Strength [] Patient feels connected with others/family/visitors/staff [] Distress [] Loneliness/isolation [] Abandonment Spirituality of Patient [] Person of Ida [] Attends Anabaptist of their Ida [] Believes in Prayer [] Reads Bible or Roman Catholic materials [] There are Spiritual issues to be addressed Fluid Dynamicist Interventions [] Prayer [] Active listening [] Non-anxious presence [] Spiritual/emotional support [] Crisis/trauma care [] Spiritual counseling [] Bereavement support [] Provided bereavement packet [] Provided Bible/devotional materials [] Provided toy/stuffed animal, coloring book to patient or family member [] Provided Communion [] Anointing/[place] [] Salvation [x] Completed spiritual assessment [] Other: Impact on Illness or Injury [] Angry [] Fearful [] Anxious [] Often cries [] Exhaustion [] Unable to work [] Unable to attend congregational [] Unable to walk/stand [] Unable to read [] Unable to drive [] Unable to eat/drink [] Unable to sleep [] Unable to be with family [] Patient intubated [] Other: Summary Time spent with patient
[2022-04-25] MEDS: morphine 4 mg/mL SDV 1 mL 2 MG IVP ×2 (16:55→22:08)
--- NOTE | 2022-04-25 17:12 | P.PN_ITS ---
Subjective Subjective: Patient was seen and examined this morning, overall he is doing fine. Patient is working with incentive spirometer and flutter valve. A.m. chest x-ray: Hazy opacity in the right lower lung may be consistent with small pleural effusion versus contusional consolidation. Patient was evaluated by orthopedic surgeon for right scapular fracture no intervention at this time. Medications: Medication Review Details: Generic Name Dose Route Start Last Admin Trade Name Freq PRN Reason Stop Dose Admin Cyclobenzaprine HC l 10 mg 04/24/22 21:00 04/25/22 14:39 Cyclobenzaprine 10 Mg Tablet PO 10 mg TID STEVE Administration Enoxaparin Sodium 40 mg 04/24/22 22:00 04/24/22 21:31 Enoxaparin 40 Mg /0.4 Ml Syringe SUBCUT 40 mg Q24H STEVE Administration Guaifenesin 600 mg 04/24/22 18:00 04/25/22 07:56 Guaifenesin 600 Mg Tablet PO 600 mg BID STEVE Administration Sodium Chloride 1,000 mls @ 75 ml s/hr 04/24/22 16:45 04/24/22 16:50 Sodium Chloride 0.9% IV 75 mls/hr .[id number] STEVE Administration Ceftriaxone Sodium 1,000 mg/ 50 mls @ 100 mls/ hr 04/24/22 19:08 04/24/22 20:26 Sodium Chloride IV Infused Q24H STEVE Infusion Protocol Morphine Sulfate 2 mg 04/25/22 09:16 04/25/22 16:55 Morphine 4 Mg/Ml Sdv 1 Ml IVP 2 mg Q2H PRN Administration SEVERE PAIN Oxycodone/Acetamin ophen 1 tab 04/24/22 19:08 04/25/22 11:54 Oxycodone-Apap 5 -325 Mg Tablet PO 1 tab Q8H STEVE Administration Vitals/I&O/Wt Last Vital Signs Temp 98.2 F 04/25/22 07:45 Pulse 61 04/25/22 16:00 Resp 20 H 04/25/22 16:55 BP 127/83 04/25/22 16:00 Pulse Ox 98 04/25/22 16:55 O2 Del Method 04/25/22 06:00 O2 Flow Rate 2 04/25/22 06:00 04/25/22 04/25/22 04/25/22 06:59 14:59 22:59 Intake Total 120 / 170 360 / 360 Output Total 500 / 500 450 / 450 Balance -380 / -330 -90 / -90 Weight last 48 hrs Weight 67.495 kg Weight 68.492 kg Weight 69.853 kg Physical Exam Const: COMMON NORMALS: patient oriented x3 Resp: COMMON NORMALS: normal respiratory effort, No retractions, No use of accessory muscles and clear to auscultation bilaterally EFFORT & INSPECTION: Yes symmetric chest movement AUSCULTATION: clear to auscultation bilaterally Cardio: COMMON NORMALS: regular rate, regular rhythm, S1 normal heart sound present, S2 normal heart sound present, No gallops present (Cardio), No murmurs present (Cardio), No rub (Cardio) and Peripheral pulses 2+ throughout RATE: regular rate RHYTHM: regular rhythm HEART SOUNDS: S1 normal heart sound present and S2 normal heart sound present PERIPHERAL PULSES: Peripheral pulses 2+ throughout GI: COMMON NORMALS: Normal to inspection, nondistended, normoactive bowel sounds present, Soft to palpation, non-tender, No hepatosplenomegaly present and no masses AUSCULTATION: Yes normoactive bowel sounds PALPATION: Yes Soft to palpation and Yes No hepatosplenomegaly present RECTAL EXAM: Yes deferred Neuro: COMMON NORMALS: patient oriented x3 Data : 04/25/22 03:26 04/25/22 03:26 A&P Assessment and plan (1) Closed rib fracture: Status: Acute (2) Hemothorax: Status: Acute (3) Closed right scapular fracture: Status: Acute (4) Subcutaneous emphysema: Status: Acute (5) Pneumothorax: Status: Acute Plan 81 year old male with no significant past medical history, was brought in from home with chief complaint of Right rib cage pain, after he experienced mechanical fall at home, he was getting out of the shower, when he slipped on the floor And hit the right side of chest. Currently is complaining of right-sided rib cage pain with inspiration and coughing. He denied any loss of consciousness or dizziness, hitting his head. Assessment: [id number] right hemothorax Closed right scapular fracture Right rib fracture Small subcutaneous emphysema Plan: Serial x-ray chest Pain control Incentive spirometer Empirically on antibiotic DVT prophylaxis: On SCDs CODE STATUS: Full code Attestations Medical Necessity Statement*: Patient is in the hospital for management of right hemothorax. Coding Level of Care Code Acute Sales Assistant [employer] for [facility] Fwd Diagnoses Closed rib fracture S22.39XA Hemothorax J94.2 Closed right scapular fracture S42.101A Subcutaneous emphysema T79.7XXA Pneumothorax J93.9
[2022-04-25] MEDS: cefTRIAXone 1,000 MG in sodium chloride 0.9% (plus) 50 ML 100 MG IV (18:13)
[2022-04-25] MEDS: enoxaparin 40 mg/0.4 mL Syringe SUBCUT (21:19)
--- NOTE | 2022-04-25 23:01 | PC.NURSE ---
Crackles auscultated in the upper lung unger. HCP notified and verbal order to stop fluids was given.
[2022-04-26] VITALS (23 sets, daily range): BP systolic 115–181; BP diastolic 67–126; PULSE 54–81; RESP 10–31; TEMP 36.5–36.6; O2SAT 77–95
--- NOTE | 2022-04-26 00:52 | PC.NURSE ---
Ceftriaxone was found to not have been administered to patient although hung and started in the MAR at the end of the previous shift. Bag was hung as secondary but failed to infuse. Pharmacy was called to verify that medication was still good and reported as such. HCP was notified and next scheduled dose re-timed for 24hrs from actual start of infusion at 0048.
[2022-04-26] MEDS: oxyCODONE-APAP 5-325 mg Tablet 1 TAB PO ×3 (02:40→18:26)
[2022-04-26 04:55] LABS: Basophils # 0.1 10^3/uL (0.0-0.1); Basophils % 0.7 %; Eosinophils # 0.1 10^3/uL (0.0-0.8); Eosinophils % 0.9 %; Hematocrit 41.4 % (42.0-52.0); Hemoglobin 13.3 g/dL (11.7-16.6); Lymphocytes # 1.6 10^3/uL (0.8-4.8); Mean Corpuscular HGB Conc 32.1 g/dL (30.0-36.0); Mean Corpuscular Volume 99.5 fl (80-94); Mean Platelet Volume 11.9 fL (7.4-10.4); Monocytes % 15.2 %; Neutrophils # 3.97 10^3/uL (1.8-7.7); Neutrophils % 58.6 %; Nucleated Red Blood Cells % 0 %; Platelet Count 119 10^3/cmm (130-400); Red Blood Count 4.16 10^6/uL (4.1-5.3); Red Cell Distribution Width 14.1 % (12.1-15.1); White Blood Count 6.8 10^3/uL (4.0-10.0)
[2022-04-26 05:16] LABS: Anion Gap 12.9 (5-19); Blood Urea Nitrogen 11 mg/dL (8-23); Calcium 8.7 mg/dL (8.5-10.5); Carbon Dioxide 23 mmol/L (22-29); Chloride 102 mmol/L (98-107); Glucose 95 mg/dL (65-115); Osmolality Calculated 277 mOsm/kg (285-295); Potassium 3.9 mmol/L (3.5-5.1); Sodium 134 mmol/L (136-145)
[2022-04-26] MEDS: guaiFENesin 600 mg Tablet PO ×2 (08:29→17:39)
[2022-04-26] MEDS: cyclobenzaprine 10 mg Tablet PO ×3 (08:29→21:32)
--- NOTE | 2022-04-26 08:33 | XRR_ITS ---
PROCEDURE INFORMATION: Exam: XR Chest Exam date and time: 04/26/2022 12:26 PM Age: 81 years old Clinical indication: Dyspnea; Additional info: [id number] right hemothorax TECHNIQUE: Imaging protocol: Radiologic exam of the chest. Views: 1 view. COMPARISON: CR (CHEST, ) 04/25/2022 4:39 AM FINDINGS: Lungs: Unremarkable. No consolidation. Pleural spaces: No definite residual right pleural effusion is seen. Evaluation for pleural effusion/hemothorax is suboptimal with a single portable AP view of the chest. Heart/Mediastinum: Unremarkable. No cardiomegaly. Bones/joints: Mildly displaced right 7th and 8th rib fractures are similar to the prior study. XR/XR chest 1V portable [id number] IMPRESSION: 1. Mildly displaced right 7th and 8th rib fractures are similar to the prior study. 2. No definite residual right pleural effusion is seen. Evaluation for pleural effusion/hemothorax is suboptimal with a single portable AP view of the chest.
--- NOTE | 2022-04-26 09:50 | PM.PN ---
Subjective Subjective: The patient feels better today. Pain is significantly improved, bother him only with cough, deep breath. He still cannot make in and out of bed by himself because of the pain. Vitals/I&O/Wt Last Vital Signs Temp 97.7 F 04/26/22 07:00 Pulse 81 04/26/22 09:00 Resp 23 H 04/26/22 09:00 BP 165/104 04/26/22 09:00 Pulse Ox 92 04/26/22 09:00 O2 Del Method 04/26/22 08:52 O2 Flow Rate 2 04/26/22 08:52 04/25/22 04/26/22 04/26/22 22:59 06:59 14:59 Intake Total 1880 / 2240 850 / 3090 360 / 360 Output Total 645 / 1095 875 / 1970 700 / 700 Balance 1235 / 1145 -25 / 1120 -340 / -340 Weight last 48 hrs Weight 154 lb 3 oz Weight 148 lb 12.8 oz Weight 151 lb Weight 154 lb Physical Exam Narrative: General: No acute distress, much more comfortable than yesterday Psych: [AAOx3]. Neuro: Hand tremor is present Eyes: [sclerae are white] Head/ENT: [normocephalic, symmetric] CV: [regular] pulse, [not tachychardic], no JVD Lungs: Painful to palpation on the right side. Decreased air entry on the right side at the base. Secondary to splinting. Abdomen: [soft, ND, nontender, no peritoneal signs.] Ext: [no obvious traumatic deformities] Skin: warm Data : 04/26/22 03:50 04/26/22 03:50 Other Labs: White blood cell count remains normal. Mild thrombocytopenia, platelets down to 119 from 156 on admission. Sodium level improved. A&P Assessment and plan (1) Fall from ground level: Status: Acute (2) Pneumothorax: Status: Acute (3) Subcutaneous emphysema: Status: Acute (4) Closed rib fracture: Status: Acute (5) Hemothorax: Status: Acute (6) Closed right scapular fracture: Status: Acute (7) Hyponatremia: Status: Acute Plan He is doing better today. I-S is 400, possibly it is higher, however, the patient has difficulty following instructions and performing the test. I-S is definitely better than yesterday. The care was discussed with Dr. Tucker. Elderly patients with 6 and more rib fractures has mortality of about 30% and frequency of pneumonia of about 50%. Mortality goes up with each rib fracture by 20%. This patient also has a scapula fracture, this is an evidence of severe injury to his chest on the right as well as an indicator for underlying damage to the lung tissue. - Mild thrombocytopenia, continue to monitor CBC. - White blood cell count remains normal. I will stop antibiotics, there is no evidence of pneumonia at this time. - Chest x-ray tomorrow a.m. to reassess for accumulation of hemothorax. - Orthopedic consult is pending, discussed with the charge nurse in ICU, will place another consult. - Medicine requested to transfer the patient to surgery service, I accepted the transfer - Given improvement in the pain as well as I-S it is okay to transfer the patient out of the ICU to intermediate floor. I will continue telemetry, continuous pulse oximetry, every 4 hours vital signs, RT every 4 hours for now with EZ Pap and Acapella - High likelihood the patient will require jail facility upon discharge for a week or 2 to assist with ADL. I will consult case management - Continue physical therapy Attestations Medical Necessity Statement*: Multipe rib fx, high risk of morbidity and mortality Coding Level of Care Code Established Pt Acute Special Crimes Investigator for g Fwd Patient Type Established Diagnoses Fall from ground level W18.30XA Pneumothorax J93.9 Subcutaneous emphysema T79.7XXA Closed rib fracture S22.39XA Hemothorax J94.2 Closed right scapular fracture S42.101A Hyponatremia E87.1 Time Spent (min) 70
--- NOTE | 2022-04-26 10:49 | PM.PN ---
Subjective Subjective: I called and discussed the care wiht Dr. Guzman; he is willing to consult and provide recommendations. Vitals/I&O/Wt Last Vital Signs Temp 97.7 F 04/26/22 07:00 Pulse 81 04/26/22 09:00 Resp 23 H 04/26/22 09:00 BP 165/104 04/26/22 09:00 Pulse Ox 92 04/26/22 09:00 O2 Del Method 04/26/22 08:52 O2 Flow Rate 2 04/26/22 08:52 04/25/22 04/26/22 04/26/22 22:59 06:59 14:59 Intake Total 1880 / 2240 850 / 3090 360 / 360 Output Total 645 / 1095 875 / 1970 700 / 700 Balance 1235 / 1145 -25 / 1120 -340 / -340 Weight last 48 hrs Weight 154 lb 3 oz Weight 148 lb 12.8 oz Weight 151 lb Weight 154 lb Data : 04/26/22 03:50 04/26/22 03:50 Attestations Medical Necessity Statement*: rib fx Coding Level of Care Code Acute Signaling Project Engineer for Chg Radha
--- NOTE | 2022-04-26 11:59 | PM.PN ---
Subjective Subjective: Patient was seen and examined this morning, overall he is doing fine. Patient is working with incentive spirometer and flutter valve.Pain is better control. Medications: Medication Review Details: Generic Name Dose Route Start Last Admin Trade Name Freq PRN Reason Stop Dose Admin Cyclobenzaprine HC l 10 mg 04/24/22 21:00 04/26/22 08:29 Cyclobenzaprine 10 Mg Tablet PO 10 mg TID STEVE Administration Enoxaparin Sodium 40 mg 04/24/22 22:00 04/25/22 21:19 Enoxaparin 40 Mg /0.4 Ml Syringe SUBCUT 40 mg Q24H STEVE Administration Guaifenesin 600 mg 04/24/22 18:00 04/26/22 08:29 Guaifenesin 600 Mg Tablet PO 600 mg BID STEVE Administration Ceftriaxone Sodium 1,000 mg/ 50 mls @ 100 mls/ hr 04/24/22 19:08 04/26/22 01:00 Sodium Chloride IV 04/26/22 19:08 Infused Q24H STEVE Infusion Protocol Morphine Sulfate 2 mg 04/25/22 09:16 04/25/22 22:08 Morphine 4 Mg/Ml Sdv 1 Ml IVP 2 mg Q2H PRN Administration SEVERE PAIN Oxycodone/Acetamin ophen 1 tab 04/24/22 19:08 04/26/22 02:40 Oxycodone-Apap 5 -325 Mg Tablet PO 1 tab Q8H STEVE Administration Vitals/I&O/Wt Last Vital Signs Temp 97.7 F 04/26/22 07:00 Pulse 81 04/26/22 09:00 Resp 23 H 04/26/22 09:00 BP 165/104 04/26/22 09:00 Pulse Ox 92 04/26/22 09:00 O2 Del Method 04/26/22 08:52 O2 Flow Rate 2 04/26/22 08:52 04/25/22 04/26/22 04/26/22 22:59 06:59 14:59 Intake Total 1880 / 2240 850 / 3090 360 / 360 Output Total 645 / 1095 875 / 1970 700 / 700 Balance 1235 / 1145 -25 / 1120 -340 / -340 Weight last 48 hrs Weight 69.938 kg Weight 67.495 kg Weight 68.492 kg Physical Exam Const: COMMON NORMALS: patient oriented x3 Resp: COMMON NORMALS: normal respiratory effort, No retractions, No use of accessory muscles and clear to auscultation bilaterally EFFORT & INSPECTION: Yes symmetric chest movement AUSCULTATION: clear to auscultation bilaterally Cardio: COMMON NORMALS: regular rate, regular rhythm, S1 normal heart sound present, S2 normal heart sound present, No gallops present (Cardio), No murmurs present (Cardio), No rub (Cardio) and Peripheral pulses 2+ throughout RATE: regular rate RHYTHM: regular rhythm HEART SOUNDS: S1 normal heart sound present and S2 normal heart sound present PERIPHERAL PULSES: Peripheral pulses 2+ throughout GI: COMMON NORMALS: Normal to inspection, nondistended, normoactive bowel sounds present, Soft to palpation, non-tender, No hepatosplenomegaly present and no masses AUSCULTATION: Yes normoactive bowel sounds PALPATION: Yes Soft to palpation and Yes No hepatosplenomegaly present RECTAL EXAM: Yes deferred Neuro: COMMON NORMALS: patient oriented x3 Data : 04/26/22 03:50 04/26/22 03:50 A&P Assessment and plan (1) Closed rib fracture: Status: Acute (2) Hemothorax: Status: Acute (3) Closed right scapular fracture: Status: Acute (4) Subcutaneous emphysema: Status: Acute (5) Pneumothorax: Status: Acute Plan 81 year old male with no significant past medical history, was brought in from home with chief complaint of Right rib cage pain, after he experienced mechanical fall at home, he was getting out of the shower, when he slipped on the floor And hit the right side of chest. Currently is complaining of right-sided rib cage pain with inspiration and coughing. He denied any loss of consciousness or dizziness, hitting his head. Assessment: [id number] right hemothorax Closed right scapular fracture Right rib fracture Small subcutaneous emphysema Plan: Serial x-ray chest Pain control Incentive spirometer Empirically on antibiotic Since there is nothing actively going on with regards to medicine, and primarily patient is a trauma patient. atient has been transferred to surgery service and the surgeon computer applications developer has accepted the patient on his service. DVT prophylaxis: On SCDs,lovenox. CODE STATUS: Full code Attestations Medical Necessity Statement*: Patient needs to be in hospital for the management of rib fracture. Coding Level of Care Code Acute National Sales Director for g Fwd Exam Expanded Problem Focused Diagnoses Closed rib fracture S22.39XA Hemothorax J94.2 Closed right scapular fracture S42.101A Subcutaneous emphysema T79.7XXA Pneumothorax J93.9
[2022-04-26] MEDS: polyethylene glycol 3350 Pkt 17 gm PO (12:30)
[2022-04-26] MEDS: acetaminophen 500 mg Tablet 1000 MG PO ×2 (12:32→21:33)
--- NOTE | 2022-04-26 16:21 | PC.NURSE ---
Patient transferred to [facility] room 268 via wheelchair accompanied by this nurse. On arrival to new room patient requested to sit in recliner. MELANIE Otero [facility] nurse noted to be at bedside. Patient noted to be A&Ox4 at time of transfer.
[2022-04-26] MEDS: docusate sodium 100 mg Capsule PO (17:39)
[2022-04-26] MEDS: sennosides 8.6 mg Tablet 17.2 MG PO (21:32)
[2022-04-26] MEDS: enoxaparin 40 mg/0.4 mL Syringe SUBCUT (21:33)
[2022-04-27] VITALS (11 sets, daily range): BP systolic 160–188; BP diastolic 81–96; PULSE 60–89; RESP 16–24; TEMP 35.5–36.7; O2SAT 90–98
[2022-04-27] MEDS: cefTRIAXone 1,000 MG in sodium chloride 0.9% (plus) 50 ML 100 MG IV (02:10)
[2022-04-27] MEDS: oxyCODONE-APAP 5-325 mg Tablet 1 TAB PO ×2 (02:34→11:02)
[2022-04-27 04:08] LABS: Basophils % 0.6 %; Eosinophils # 0.1 10^3/uL (0.0-0.8); Eosinophils % 1.6 %; Hematocrit 45.5 % (42.0-52.0); Hemoglobin 15.1 g/dL (11.7-16.6); Lymphocytes # 1.5 10^3/uL (0.8-4.8); Lymphocytes % 21.1 %; Mean Corpuscular HGB Conc 33.2 g/dL (30.0-36.0); Mean Corpuscular Hemoglobin 31.9 pg (28.0-34.0); Mean Corpuscular Volume 96.2 fl (80-94); Mean Platelet Volume 11.7 fL (7.4-10.4); Monocytes # 0.9 10^3/uL (0.2-0.9); Neutrophils # 4.35 10^3/uL (1.8-7.7); Neutrophils % 63.3 %; Nucleated Red Blood Cells % 0 %; Platelet Count 131 10^3/cmm (130-400); Red Blood Count 4.73 10^6/uL (4.1-5.3); Red Cell Distribution Width 13.7 % (12.1-15.1); White Blood Count 6.9 10^3/uL (4.0-10.0)
[2022-04-27 04:30] LABS: Anion Gap 13.6 (5-19); Blood Urea Nitrogen 11 mg/dL (8-23); Calcium 9.1 mg/dL (8.5-10.5); Carbon Dioxide 26 mmol/L (22-29); Chloride 100 mmol/L (98-107); Glucose 112 mg/dL (65-115); Osmolality Calculated 282 mOsm/kg (285-295); Potassium 3.6 mmol/L (3.5-5.1); Sodium 136 mmol/L (136-145)
--- NOTE | 2022-04-27 07:00 | XRR_ITS ---
PROCEDURE INFORMATION: Exam: XR Chest Exam date and time: 04/27/2022 7:26 AM Age: 81 years old Clinical indication: Condition or disease; Lung condition and disease; Other: [id number] TECHNIQUE: Imaging protocol: Radiologic exam of the chest. Views: 1 view. Other technique: Frontal portable upright view of the chest. COMPARISON: CR (CHEST, ) 04/26/2022 12:26 PM FINDINGS: Lungs: The pulmonary vasculature is normal. Mild medial right basilar pulmonary partial atelectasis/consolidation, stable. Pleural spaces: No pleural effusion. No pneumothorax. Heart/Mediastinum: Stable mild cardiomegaly. Vasculature: Moderate tortuosity of the lower descending thoracic aorta. Diaphragm: The right hemidiaphragm remains moderately elevated. Bones/joints: Stable. Soft tissues: A skin fold projects over the left upper chest. XR/XR chest 1V portable [id number] IMPRESSION: Mild medial right basilar pulmonary partial atelectasis/consolidation, stable.
[2022-04-27] MEDS: cyclobenzaprine 10 mg Tablet PO ×3 (08:20→20:03)
[2022-04-27] MEDS: docusate sodium 100 mg Capsule PO ×2 (08:20→18:00)
[2022-04-27] MEDS: guaiFENesin 600 mg Tablet PO ×2 (08:20→18:00)
--- NOTE | 2022-04-27 08:51 | PC.NURSE ---
Physician orders to change senna to BID from Bedtime dose, added miralax and give suppository now.
--- NOTE | 2022-04-27 09:06 | PM.PN ---
Subjective Subjective: Patient was seen and examined this morning, pain is better controlled, working well with incentive spirometer and flutter valve. A.m. chest x-ray has been reviewed. Medications: Medication Review Details: Generic Name Dose Route Start Last Admin Trade Name Babakq PRN Reason Stop Dose Admin Acetaminophen 1,000 mg 04/26/22 11:30 04/26/22 21:33 Acetaminophen 50 0 Mg Tablet PO 1,000 mg Q12H STEVE Administration Cyclobenzaprine HC l 10 mg 04/24/22 21:00 04/27/22 08:20 Cyclobenzaprine 10 Mg Tablet PO 10 mg TID STEVE Administration Docusate Sodium 100 mg 04/26/22 18:00 04/27/22 08:20 Docusate Sodium 100 Mg Capsule PO 100 mg BID STEVE Administration Enoxaparin Sodium 40 mg 04/24/22 22:00 04/26/22 21:33 Enoxaparin 40 Mg /0.4 Ml Syringe SUBCUT 40 mg Q24H STEVE Administration Guaifenesin 600 mg 04/24/22 18:00 04/27/22 08:20 Guaifenesin 600 Mg Tablet PO 600 mg BID STEVE Administration Ceftriaxone Sodium 1,000 mg/ 50 mls @ 100 mls/ hr 04/27/22 01:00 04/27/22 02:10 Sodium Chloride IV 100 mls/hr Q24H STEVE Administration Protocol Morphine Sulfate 2 mg 04/25/22 09:16 04/25/22 22:08 Morphine 4 Mg/Ml Sdv 1 Ml IVP 2 mg Q2H PRN Administration SEVERE PAIN Oxycodone/Acetamin ophen 1 tab 04/24/22 19:08 04/27/22 02:34 Oxycodone-Apap 5 -325 Mg Tablet PO 1 tab Q8H STEVE Administration Vitals/I&O/Wt Last Vital Signs Temp 96 F L 04/27/22 07:49 Pulse 66 04/27/22 07:49 Resp 20 H 04/27/22 07:49 BP 176/87 04/27/22 07:49 Pulse Ox 96 04/27/22 07:49 O2 Del Method 04/27/22 07:24 O2 Flow Rate 2 04/27/22 07:24 04/26/22 04/27/22 04/27/22 22:59 06:59 14:59 Intake Total 630 / 1470 Output Total 400 / 1300 1250 / 2550 Balance -400 / -460 -620 / -1080 Weight last 48 hrs Weight 67.585 kg Weight 69.938 kg Physical Exam Const: COMMON NORMALS: patient oriented x3 Resp: COMMON NORMALS: normal respiratory effort, No retractions, No use of accessory muscles and clear to auscultation bilaterally EFFORT & INSPECTION: Yes symmetric chest movement AUSCULTATION: clear to auscultation bilaterally Cardio: COMMON NORMALS: regular rate, regular rhythm, S1 normal heart sound present, S2 normal heart sound present, No gallops present (Cardio), No murmurs present (Cardio), No rub (Cardio) and Peripheral pulses 2+ throughout RATE: regular rate RHYTHM: regular rhythm HEART SOUNDS: S1 normal heart sound present and S2 normal heart sound present PERIPHERAL PULSES: Peripheral pulses 2+ throughout GI: COMMON NORMALS: Normal to inspection, nondistended, normoactive bowel sounds present, Soft to palpation, non-tender, No hepatosplenomegaly present and no masses AUSCULTATION: Yes normoactive bowel sounds PALPATION: Yes Soft to palpation and Yes No hepatosplenomegaly present RECTAL EXAM: Yes deferred Neuro: COMMON NORMALS: patient oriented x3 Data : 04/27/22 03:19 04/27/22 03:19 A&P Assessment and plan (1) Closed rib fracture: Status: Acute (2) Hemothorax: Status: Acute (3) Closed right scapular fracture: Status: Acute (4) Subcutaneous emphysema: Status: Acute (5) Pneumothorax: Status: Acute Plan 81 year old male with no significant past medical history, was brought in from home with chief complaint of Right rib cage pain, after he experienced mechanical fall at home, he was getting out of the shower, when he slipped on the floor And hit the right side of chest. Currently is complaining of right-sided rib cage pain with inspiration and coughing. He denied any loss of consciousness or dizziness, hitting his head. Assessment: [id number] right hemothorax Closed right scapular fracture Right rib fracture Small subcutaneous emphysema Plan: Serial x-ray chest Pain control Incentive spirometer Empirically on antibiotic Since there is nothing actively going on with regards to medicine, and primarily patient is a trauma patient. atient has been transferred to surgery service and the surgeon enthone solder stripper has accepted the patient on his service. DVT prophylaxis: On SCDs,lovenox. CODE STATUS: Full code Attestations Medical Necessity Statement*: Patient is to be in hospital for management of rib fracture. Coding Level of Care Code Acute Aquatics Manager for Chg Fwd Exam Expanded Problem Focused Diagnoses Closed rib fracture S22.39XA Hemothorax J94.2 Closed right scapular fracture S42.101A Subcutaneous emphysema T79.7XXA Pneumothorax J93.9
[2022-04-27] MEDS: sennosides 8.6 mg Tablet 17.2 MG PO ×2 (09:27→18:00)
[2022-04-27] MEDS: bisacodyl 5 mg Tablet 10 MG PO (09:27)
[2022-04-27] MEDS: polyethylene glycol 3350 Pkt 17 gm PO (09:28)
--- NOTE | 2022-04-27 11:20 | P.PN_ITS ---
Subjective Subjective: He continues to do well. Pain is better controlled. I-S is almost 500 this morning. He was able to get out of bed by himself despite nursing recommendations not to do it. He did not fall. Pending evaluation by orthopedics He has only small very small bowel movement yesterday. I will escalate laxative therapy today. Sling was applied to the right upper extremity Vitals/I&O/Wt Last Vital Signs Temp 98.1 F 04/27/22 11:07 Pulse 77 04/27/22 11:07 Resp 16 04/27/22 11:07 BP 161/84 04/27/22 11:07 Pulse Ox 93 04/27/22 11:07 O2 Del Method 04/27/22 11:07 O2 Flow Rate 2 04/27/22 11:07 04/26/22 04/27/22 04/27/22 22:59 06:59 14:59 Intake Total 630 / 1470 50 / 50 Output Total 400 / 1300 1250 / 2550 Balance -400 / -460 -620 / -1080 50 / 50 Weight last 48 hrs Weight 149 lb Weight 154 lb 3 oz Physical Exam Narrative: General: No acute distress, comfortable Psych: [AAOx3]. Neuro: Hand tremor is present Eyes: [sclerae are white] Head/ENT: [normocephalic, symmetric] CV: [regular] pulse, [not tachychardic], no JVD Lungs: Symmetrical chest rise. Pain upon palpation on the right is improving. Abdomen: [soft, ND, nontender, no peritoneal signs.] Ext: [no obvious traumatic deformities] Skin: warm Data : 04/27/22 03:19 04/27/22 03:19 Other Labs: Labs reviewed. Thrombocytopenia is improving. Sodium level back to normal. Other data: Chest x-ray showed improvement in the infiltrate on the right, high position of the right diaphragm, no sizable hemothorax A&P Assessment and plan (1) Fall from ground level: Status: Acute (2) Pneumothorax: Status: Acute (3) Subcutaneous emphysema: Status: Acute (4) Closed rib fracture: Status: Acute (5) Hemothorax: Status: Acute (6) Closed right scapular fracture: Status: Acute (7) Hyponatremia: Status: Acute Plan He is doing better today. Continue ongoing care, start planning for discharge, home versus SNF - Mild thrombocytopenia, improving - Orthopedic consult is pending - will continue telemetry, continuous pulse oximetry, every 4 hours vital signs, RT every 4 hours for now with EZ Pap and Acapella - High likelihood the patient will require fpc facility upon discharge for a week or 2 to assist with ADL. I will consult case management - Continue physical therapy -MiraLAX daily docusate and senna twice a day, bisacodyl suppository Attestations Medical Necessity Statement*: rib fx Coding Level of Care Code Acute Cleaner And Dyer for Chg Fwd Diagnoses Fall from ground level W18.30XA Pneumothorax J93.9 Subcutaneous emphysema T79.7XXA Closed rib fracture S22.39XA Hemothorax J94.2 Closed right scapular fracture S42.101A Hyponatremia E87.1
[2022-04-27] MEDS: ziprasidone 20 mg/mL SDV 5 MG IM (18:32)
--- NOTE | 2022-04-27 19:13 | PC.NURSE ---
Patient began to get combative, patient has been having hallucinations and has been confused most of the day which has recently escalated. Physician has been notified and received orders to give Geodon IM 5mg ONCE>
[2022-04-27] MEDS: enoxaparin 40 mg/0.4 mL Syringe SUBCUT (20:03)
[2022-04-27] MEDS: acetaminophen 500 mg Tablet 1000 MG PO (23:29)
[2022-04-28] VITALS (10 sets, daily range): BP systolic 141–194; BP diastolic 89–95; PULSE 70–95; RESP 16–18; TEMP 36.5–36.9; O2SAT 90–95
[2022-04-28] MEDS: cefTRIAXone 1,000 MG in sodium chloride 0.9% (plus) 50 ML 100 MG IV ×2 (00:22→23:08)
[2022-04-28] MEDS: oxyCODONE-APAP 5-325 mg Tablet 1 TAB PO ×2 (02:53→12:39)
[2022-04-28] MEDS: cyclobenzaprine 10 mg Tablet PO (09:35)
[2022-04-28] MEDS: polyethylene glycol 3350 Pkt 17 gm PO (09:35)
[2022-04-28] MEDS: sennosides 8.6 mg Tablet 17.2 MG PO ×2 (09:35→18:37)
[2022-04-28] MEDS: guaiFENesin 600 mg Tablet PO ×2 (09:36→18:32)
[2022-04-28] MEDS: docusate sodium 100 mg Capsule PO ×2 (09:36→18:37)
--- NOTE | 2022-04-28 11:20 | PC.NURSE ---
pt is presenting an increase in confusion with some hallucinations. Pt is calm at this time. AOx2.
[2022-04-28] MEDS: acetaminophen 500 mg Tablet 1000 MG PO (12:38)
--- NOTE | 2022-04-28 13:35 | PM.CONSULT ---
Providers/Reason For Consult Consulting Physician/Specialty*: Shane Guzman MD Reason for Consult*: right scapular fracture Attending Physician: Marianne Trotter MD History of Present Illness History of Present Illness George William is a 81 year old male who was admitted to the hospital on 04/24/2022 after a fall with fractures of his right rib and a small scapular body fracture. The patient was admitted to medicine. I have been asked to see the patient for the scapular fracture. Today he denies any pain. Medications/Allergies Home Medications Medication Instructions Recorded Confirmed Last Taken Type No Known Home Medications 04/24/22 04/24/22 Unknown History Allergies Allergy/AdvReac Type Severity Reaction Status Date / Time aspirin Allergy ALGY-Anaphy Verified 04/24/22 11:31 laxis naproxen [From Anaprox] Allergy ALGY-Hives Verified 04/24/22 11:31 Sulfa (Sulfonamide Allergy ALGY-Difficulty Verified 04/24/22 11:31 Antibiotics) Swallowing Current Medications Generic Name Dose Route Start Last Admin Trade Name Freq PRN Reason Stop Dose Admin Acetaminophen 1,000 mg 04/26/22 11:30 04/28/22 12:38 Acetaminophen 500 Mg Tablet PO 1,000 mg Q12H STEVE Administration Bisacodyl 10 mg 04/24/22 16:00 04/27/22 09:27 Bisacodyl 5 Mg Tablet PO 10 mg DAILY PRN Administration Constipation (see protocol) Protocol Cyclobenzaprine HCl 10 mg 04/24/22 21:00 04/28/22 09:35 Cyclobenzaprine 10 Mg Tablet PO 10 mg TID STEVE Administration Docusate Sodium 100 mg 04/26/22 18:00 04/28/22 09:36 Docusate Sodium 100 Mg Capsule PO 100 mg BID STEVE Administration Enoxaparin Sodium 40 mg 04/24/22 22:00 04/27/22 20:03 Enoxaparin 40 Mg/0.4 Ml Syringe SUBCUT 40 mg Q24H STEVE Administration Guaifenesin 600 mg 04/24/22 18:00 04/28/22 09:36 Guaifenesin 600 Mg Tablet PO 600 mg BID STEVE Administration Ceftriaxone Sodium 1,000 mg/ 50 mls @ 100 mls/hr 04/27/22 01:00 04/28/22 00:22 Sodium Chloride IV 100 mls/hr Q24H STEVE Administration Protocol Morphine Sulfate 2 mg 04/25/22 09:16 04/25/22 22:08 Morphine 4 Mg/Ml Sdv 1 Ml IVP 2 mg Q2H PRN Administration SEVERE PAIN Oxycodone/Acetaminophen 1 tab 04/24/22 19:08 04/28/22 12:39 Oxycodone-Apap 5-325 Mg Tablet PO 1 tab Q8H STEVE Administration Polyethylene Glycol 17 gm 04/27/22 09:00 04/28/22 09:35 Polyethylene Glycol 3350 Pkt 17 Gm PO 17 gm DAILY STEVE Administration Senna 17.2 mg 04/27/22 09:00 04/28/22 09:35 Sennosides 8.6 Mg Tablet PO 17.2 mg BID STEVE Administration PFSH Acute PFSH: Medical History (Updated 04/24/22 @ 23:14 by Jennifer Lagunas RN) No pertinent past medical history Social History (Updated 04/24/22 @ 23:12 by Jennifer Lagunas RN) Smoking and tobacco status: never smoked Alcohol intake: current Alcohol intake frequency: few times a month Desire information about alcohol rehabilitation?: No Substance/Drug Use: never Vitals/I&O/Wt Last Vital Signs Temp 98.1 F 04/28/22 12:00 Pulse 70 04/28/22 12:00 Resp 16 04/28/22 12:39 BP 162/89 04/28/22 12:00 Pulse Ox 95 04/28/22 12:39 O2 Del Method 04/28/22 12:00 O2 Flow Rate 2 04/28/22 09:00 04/27/22 04/28/22 04/28/22 22:59 06:59 14:59 Intake Total 120 / 530 360 / 360 Balance 120 / 130 360 / 360 Weight last 48 hrs Weight 149 lb Physical Exam Narrative: There is no swelling or visible deformity about the right shoulder. Today I can flex him to 160 degrees and externally rotate him 60 degrees There is no tenderness over the scapula. MOTOR: Strong and symetrical biceps, triceps, wrist extension, senior etl developer and interossei strength. SENSATION: Intact to light touch Strong dorsalis pedis pulse Data : 04/27/22 03:19 04/27/22 03:[address]: My impression: I reviewed his CT fracture of the inferior medial scapular body. A&P Assessment and plan (1) Closed right scapular fracture: The fracture extra-articular and minimally displaced. I told him that this should heal with nonoperative care. I have suggested a sling for comfort and motion as tolerated. I can see him back in my office in 1 month with radiographs. Status: Acute Coding Level of Care Code Acute Duplicator Punch Operator for Carlin Garcia Diagnoses Closed right scapular fracture S42.101A
--- NOTE | 2022-04-28 16:54 | P.PN_ITS ---
Subjective Subjective: Patient was seen and examined today is being checked out to me by my partner locum surgeon . Medications: Reviewed: Yes Vitals/I&O/Wt Last Vital Signs Temp 98.5 F 04/28/22 16:00 Pulse 80 04/28/22 16:00 Resp 16 04/28/22 16:00 BP 160/89 04/28/22 16:00 Pulse Ox 93 04/28/22 16:00 O2 Del Method 04/28/22 16:00 O2 Flow Rate 2 04/28/22 09:00 04/28/22 04/28/22 04/28/22 06:59 14:59 22:59 Intake Total 360 / 360 Balance 360 / 360 Weight last 48 hrs Weight 149 lb Physical Exam Narrative: Patient is conscious alert shows some confusion No apparent distress BMI 22 Head and neck examination PERRLA no masses no cervical lymphadenopathy no jaundice Cardiac examination audible S1-S2 no murmurs no gallops no arrhythmias Chest is fair air entry bilateral no surgical emphysema, tenderness over the right hemithorax Abdomen nontender nondistended soft no organomegaly guarding or rigidity/no signs of peritonitis Extremities no cyanosis no clubbing no edema Data : 04/27/22 03:19 04/27/22 03:19 A&P Assessment and plan (1) Closed rib fracture: Conservative management in the form of pain control Optimize nutrition by adding protein shakes 3 to 4 cans a day aspiration precautions Incentive spirometer every hour We will continue to follow Assurance and education All questions have been answered and all concerns have been addressed to patient's satisfaction. Thank you for consulting general surgery to participate taking care Mr. William Status: Acute Attestations Medical Necessity Statement*: Per admitting service Coding Level of Care Code Acute Dental Assistant Teacher for Chg Fwd Diagnoses Closed rib fracture S22.39XA
--- NOTE | 2022-04-28 17:52 | P.PN_ITS ---
Subjective Subjective: His pain is currently well controlled, noted to be hallucinating today however. He is trying to reach for his phone which is not present. States there are people in his room which are actually not there. Patient has a history of daily alcohol consumption, however currently his CIWA score is only 1-2. He is able to correctly tell me his name age date of , knows that he is in the hospital. Also notes that he is here for rib fractures and hemothorax. Medications: Reviewed: Yes Medication Review Details: Generic Name Dose Route Start Last Admin Trade Name Spencer PRN Reason Stop Dose Admin Acetaminophen 1,000 mg 04/26/22 11:30 04/26/22 21:33 Acetaminophen 50 0 Mg Tablet PO 1,000 mg Q12H STEVE Administration Cyclobenzaprine HC l 10 mg 04/24/22 21:00 04/27/22 08:20 Cyclobenzaprine 10 Mg Tablet PO 10 mg TID STEVE Administration Docusate Sodium 100 mg 04/26/22 18:00 04/27/22 08:20 Docusate Sodium 100 Mg Capsule PO 100 mg BID STEVE Administration Enoxaparin Sodium 40 mg 04/24/22 22:00 04/26/22 21:33 Enoxaparin 40 Mg /0.4 Ml Syringe SUBCUT 40 mg Q24H STEVE Administration Guaifenesin 600 mg 04/24/22 18:00 04/27/22 08:20 Guaifenesin 600 Mg Tablet PO 600 mg BID STEVE Administration Ceftriaxone Sodium 1,000 mg/ 50 mls @ 100 mls/ hr 04/27/22 01:00 04/27/22 02:10 Sodium Chloride IV 100 mls/hr Q24H STEVE Administration Protocol Morphine Sulfate 2 mg 04/25/22 09:16 04/25/22 22:08 Morphine 4 Mg/Ml Sdv 1 Ml IVP 2 mg Q2H PRN Administration SEVERE PAIN Oxycodone/Acetamin ophen 1 tab 04/24/22 19:08 04/27/22 02:34 Oxycodone-Apap 5 -325 Mg Tablet PO 1 tab Q8H STEVE Administration Vitals/I&O/Wt Last Vital Signs Temp 98.5 F 04/28/22 16:00 Pulse 80 04/28/22 16:00 Resp 16 04/28/22 16:00 BP 160/89 09/19/22 16:00 Pulse Ox 93 04/28/22 16:00 O2 Del Method 04/28/22 16:00 O2 Flow Rate 2 04/28/22 09:00 04/28/22 04/28/22 04/28/22 06:59 14:59 22:59 Intake Total 360 / 360 Balance 360 / 360 Weight last 48 hrs Weight 67.585 kg Physical Exam Narrative: General: No acute distress, AO x3, however has been experiencing visual hallucinations. He has attempted to climb out of bed on several occasio ns, needs frequent redirection. HEENT: PERRLA, pupils bilaterally equal and reactive, pallors not present Chest: Normal vesicular breath sounds, no added sounds, equal good air entry bilaterally CVS: S1-S2 regular, no murmurs, no tachycardia, no gallops, no rubs Abdomen: Soft, nontender, no organomegaly, bowel sounds present Neuro: No focal deficits, no facial deformity, AO x3, power 5/5 in all limbs Extremities: No edema clubbing or cyanosis Data : 04/27/22 03:19 04/27/22 03:19 A&P Assessment and plan (1) Closed rib fracture: Status: Acute (2) Hemothorax: Status: Acute (3) Closed right scapular fracture: Status: Acute (4) Subcutaneous emphysema: Status: Acute (5) Pneumothorax: Status: Acute Plan 81 year old male with history of alcohol abuse, admitted to the hospital after sustaining a mechanical fall and found to have multiple rib fractures with small to moderate right hemothorax. And a closed right scapular fracture. He is currently requiring 3 to 4 L of supplemental O2. This has been stable over the past 2 days. Patient is still very unsteady, is a high fall risk. He fell as recently as this morning. No history of head injury this morning. He is reporting visual and auditory hallucinations today. He is able to correctly tell me his name age date of and the fact that he is in a hospital for a rib fracture. Will discontinue opiates including morphine and Percocet in case contributing to his current hallucinations. Change pain management to Tylenol 1000 mg p.o. every 8 hours and Toradol alternating. Patient denies being in significant pain at this time. Additionally will use lidocaine patches locally. He has a history of alcohol abuse dating back over several years. Additionally will add CIWA score to monitor for alcohol withdrawal. Check TSH, LFTs, ammonia level. Patient additionally at risk for Warnicke's encephalopathy, add daily thiamine supplementation 100 mg p.o. daily. Monitor with above changes. DVT prophylaxis: On SCDs,lovenox. Disposition: Ongoing safe discharge planning. Patient is currently unsteady on his feet, high fall risk. He lives by himself and currently unsafe to return home alone. He is agreeable for placement at SNF. Therapy assessments including PT OT. CODE STATUS: Full code Attestations Medical Necessity Statement*: Ongoing visual hallucinations, pending work-up, CIWA score assessment, safe disposition planning Coding Level of Care Code Acute [employer] for [employer] Fwd Diagnoses Closed rib fracture S22.39XA Hemothorax J94.2 Closed right scapular fracture S42.101A Subcutaneous emphysema T79.7XXA Pneumothorax J93.9
[2022-04-28] MEDS: enoxaparin 40 mg/0.4 mL Syringe SUBCUT (20:41)
--- NOTE | 2022-04-28 21:03 | PC.NURSE ---
Patient's CIWA score 15. Patient restless and agitated. One-on-one sitter states that patient attempted to kick her multiple times. Dr. Millan notified KIMBERLY Dunbar ordered.
[2022-04-28] MEDS: haloperidol inj 5 mg/mL INJ 1 mL 1 MG IM (21:14)
--- NOTE | 2022-04-28 23:10 | PC.NURSE ---
Patient still awake and restless, but much less agitated after receiving IM Haldol. Will monitor. One-on-one sitter at bedside. Unable to keep patient's telemetry or nasal cannula off. Patient continually pulls off and becomes agitated when attempting to place back on.
[2022-04-29] VITALS (7 sets, daily range): BP systolic 113–167; BP diastolic 70–87; PULSE 60–91; RESP 18–24; TEMP 36.5–36.7; O2SAT 88–94
[2022-04-29 08:20] LABS: Ammonia 20 umol/L (16-60)
[2022-04-29] MEDS: thiamine 100 mg Tablet PO (08:23)
[2022-04-29] MEDS: sennosides 8.6 mg Tablet 17.2 MG PO (08:23)
[2022-04-29] MEDS: docusate sodium 100 mg Capsule PO (08:23)
[2022-04-29] MEDS: polyethylene glycol 3350 Pkt 17 gm PO (08:23)
[2022-04-29] MEDS: guaiFENesin 600 mg Tablet PO (08:23)
[2022-04-29] MEDS: ketorolac 30 mg/mL INJ 15 MG IVP (08:28)
[2022-04-29] MEDS: lidocaine 5% Patch 1 PATCH TOPICAL (08:28)
[2022-04-29 08:30] LABS: Alanine Aminotransferase 10 U/L (0-41); Albumin Level 3.1 g/dL (3.5-5.2); Alkaline Phosphatase 62 U/L (40-130); Anion Gap 15.5 (5-19); Aspartate Amino Transferase 27 U/L (0-40); Blood Urea Nitrogen 12 mg/dL (8-23); Calcium 9.6 mg/dL (8.5-10.5); Carbon Dioxide 27 mmol/L (22-29); Chloride 97 mmol/L (98-107); Creatinine Clr Calc Pharmacy 50.3581; Globulin 3.5 g/dL (1.3-4.6); Glucose 111 mg/dL (65-115); Osmolality Calculated 282 mOsm/kg (285-295); Potassium 3.5 mmol/L (3.5-5.1); Sodium 136 mmol/L (136-145); Thyroid Stimulating Hormone 4.02 uIU/mL (0.27-4.20); Total Bilirubin 1.1 mg/dL (0.15-1.2); Total Protein 6.6 g/dL (6.6-8.7)
--- NOTE | 2022-04-29 14:19 | P.PN_ITS ---
Subjective Subjective: Patient's pain is well controlled this morning. He appears to be less confused today. This morning he participated with physical therapy and took a few rounds of the hallway. He has been weaned off oxygen, currently saturating 93% on room air. Needed Haldol overnight due to confusion and agita tion. Medications: Reviewed: Yes Medication Review Details: Generic Name Dose Route Start Last Admin Trade Name Babakq PRN Reason Stop Dose Admin Acetaminophen 1,000 mg 04/26/22 11:30 04/26/22 21:33 Acetaminophen 50 0 Mg Tablet PO 1,000 mg Q12H STEVE Administration Cyclobenzaprine HC l 10 mg 04/24/22 21:00 04/27/22 08:20 Cyclobenzaprine 10 Mg Tablet PO 10 mg TID STEVE Administration Docusate Sodium 100 mg 04/26/22 18:00 04/27/22 08:20 Docusate Sodium 100 Mg Capsule PO 100 mg BID STEVE Administration Enoxaparin Sodium 40 mg 04/24/22 22:00 04/26/22 21:33 Enoxaparin 40 Mg /0.4 Ml Syringe SUBCUT 40 mg Q24H STEVE Administration Guaifenesin 600 mg 04/24/22 18:00 04/27/22 08:20 Guaifenesin 600 Mg Tablet PO 600 mg BID STEVE Administration Ceftriaxone Sodium 1,000 mg/ 50 mls @ 100 mls/ hr 04/27/22 01:00 04/27/22 02:10 Sodium Chloride IV 100 mls/hr Q24H STEVE Administration Protocol Morphine Sulfate 2 mg 04/25/22 09:16 04/25/22 22:08 Morphine 4 Mg/Ml Sdv 1 Ml IVP 2 mg Q2H PRN Administration SEVERE PAIN Oxycodone/Acetamin ophen 1 tab 04/24/22 19:08 04/27/22 02:34 Oxycodone-Apap 5 -325 Mg Tablet PO 1 tab Q8H STEVE Administration Vitals/I&O/Wt Last Vital Signs Temp 98.1 F 04/29/22 11:06 Pulse 64 04/29/22 11:06 Resp 18 04/29/22 11:06 BP 113/70 04/29/22 11:06 Pulse Ox 91 04/29/22 11:06 O2 Del Method 04/29/22 11:06 O2 Flow Rate 2 04/28/22 09:00 04/28/22 04/29/22 04/29/22 22:59 06:59 14:59 Intake Total 370 / 730 50 / 780 120 / 120 Output Total 200 / 200 Balance 170 / 530 50 / 580 120 / 120 Weight last 48 hrs Weight 65.862 kg Physical Exam Narrative: General: No acute distress, AO x3 HEENT: PERRLA, pupils bilaterally equal and reactive, pallors not present Chest: Normal vesicular breath sounds, no added sounds, equal good air entry bilaterally CVS: S1-S2 regular, no murmurs, no tachycardia, no gallops, no rubs Abdomen: Soft, nontender, no organomegaly, bowel sounds present Neuro: No focal deficits, no facial deformity, AO x3, power 5/5 in all limbs Extremities: No edema clubbing or cyanosis Data : 04/27/22 03:19 04/29/22 07:54 A&P Assessment and plan (1) Closed rib fracture: Status: Acute (2) Hemothorax: Status: Acute (3) Closed right scapular fracture: Status: Acute (4) Subcutaneous emphysema: Status: Acute (5) Pneumothorax: Status: Acute Plan 81 year old male with history of alcohol abuse, admitted to the hospital after sustaining a mechanical fall and found to have multiple rib fractures with small to moderate right hemothorax. And a closed right scapular fracture. He was requiring 3 to 4 L of supplemental O2. He was able to be weaned down to room air and saturating 93%. His hallucinations appear to be improved today after cutting back on his opiates. Appears also to be less confused. He was able to participate with physical therapy this morning and walked in the hallway. He did not need IM Haldol overnight. Will add Zyprexa 2.5 mg p.o. daily Continue to hold opiates including morphine and Percocet in case contributing to his current hallucinations. Continue pain management with Tylenol 1000 mg p.o. every 8 hours and Toradol alternating. Patient denies being in significant pain at this time. Additionally will use lidocaine patches locally. He has a history of alcohol abuse dating back over several years. CIWA scores are not high currently. Normal TSH, LFTs, ammonia level. Patient additionally at risk for Warnicke's encephalopathy, continue daily thiamine supplementation 100 mg p.o. daily. DVT prophylaxis: On SCDs,lovenox. Disposition: Ongoing safe discharge planning. Patient is currently unsteady on his feet, high fall risk. He lives by himself and currently unsafe to return home alone. He is agreeable for placement at SNF. Therapy assessments including PT OT. CODE STATUS: Full code Attestations Medical Necessity Statement*: Ongoing disposition planning, monitoring confusion and hallucinations, appears to be clearing today Coding Level of Care Code Acute Private Duty Nurse for [facility] Fwd Diagnoses Closed rib fracture S22.39XA Hemothorax J94.2 Closed right scapular fracture S42.101A Subcutaneous emphysema T79.7XXA Pneumothorax J93.9
[2022-04-29] MEDS: enoxaparin 40 mg/0.4 mL Syringe SUBCUT (21:29)
[2022-04-29] MEDS: acetaminophen 500 mg Tablet 1000 MG PO (21:29)
[2022-04-30] VITALS (8 sets, daily range): BP systolic 127–159; BP diastolic 81–89; PULSE 59–85; RESP 16–20; TEMP 36.4–36.8; O2SAT 90–95
[2022-04-30] MEDS: cefTRIAXone 1,000 MG in sodium chloride 0.9% (plus) 50 ML 100 MG IV (01:46)
[2022-04-30] MEDS: acetaminophen 500 mg Tablet 1000 MG PO (05:37)
[2022-04-30] MEDS: lidocaine 5% Patch 1 PATCH TOPICAL (10:28)
[2022-04-30] MEDS: thiamine 100 mg Tablet PO (10:29)
[2022-04-30] MEDS: OLANZapine 5 mg ODT 2.5 MG PO (10:29)
[2022-04-30] MEDS: sennosides 8.6 mg Tablet 17.2 MG PO (10:29)
[2022-04-30] MEDS: guaiFENesin 600 mg Tablet PO (10:31)
[2022-04-30] MEDS: docusate sodium 100 mg Capsule PO (10:31)
--- NOTE | 2022-04-30 14:32 | PM.DCS ---
Discharge Providers Date of Admission: 04/24/22 19:08 Date of Discharge: April 30, 2022 Attending Provider at Admission: Pete Tucker MD Attending Provider at Discharge: Marianne Trotter MD Diagnoses at Discharge Discharge Diagnosis (1) Closed rib fracture: Status: Acute (2) Hemothorax: Status: Acute (3) Closed right scapular fracture: Status: Acute (4) Subcutaneous emphysema: Status: Acute (5) Pneumothorax: Status: Acute Reason for Visit Reason for Visit: fall, side pain Hospital Course Hospital Course 81 year old male with history of alcohol abuse, admitted to the hospital after sustaining a mechanical fall and found to have multiple rib fractures with small to moderate right hemothorax.? And a closed right scapular fracture. He was requiring 3 to 4 L of supplemental O2 initially.? He was able to be weaned down to room air and saturating 93%-95%. Hospital course was complicated by hallucinations which have resolved after stopping all opiates.? He is no longer confused.? He was able to participate with physical therapy, walking 300ft independently, however does need walker assistance. Daily Zyprexa 2.5 mg p.o. was added which he is tolerating. Pain is well controlled with Tylenol 1000 mg p.o. every 8 hours and Toradol alternating.? He has a history of alcohol abuse dating back over several years.? CIWA scores are not high currently. Normal TSH, LFTs, ammonia level. Patient additionally at risk for Warnicke's encephalopathy, continue daily thiamine supplementation 100 mg p.o. daily. Who is being discharged today in stable to improved condition. Initially [place] [facility], however today patient states that he is no longer interested in going to a [place] [facility], he would rather return home as he wishes to maintain his independence. Since his mentation is now back to baseline, he is alert awake and oriented no longer confused or agitated this does not seem to be an unreasonable request. He is being discharged home in stable condition. Physical Exam Narrative: General: No acute distress, AO x3 HEENT: PERRLA, pupils bilaterally equal and reactive, pallors not present Chest: Normal vesicular breath sounds, no added sounds, equal good air entry bilaterally CVS: S1-S2 regular, no murmurs, no tachycardia, no gallops, no rubs Abdomen: Soft, nontender, no organomegaly, bowel sounds present Neuro: No focal deficits, no facial deformity, AO x3, power 5/5 in all limbs Discharge Data Studies Completed and Pending Completed Studies During Hospitalization Category Date Time Status CT abdomen pelvis wo con [id number] Stat Cat Scan 04/24/22 12:[address] angio chest [id number] Stat Cat Scan 04/24/22 12:[address] chest wo con [id number] Stat Cat Scan 04/24/22 11:[address] head wo con* [id number] Stat Cat Scan 04/24/22 11:03 Completed CXRP [XR chest 1V portable [id number]] Routine Exams 04/27/22 07:00 Completed XR chest 1V portable [id number] Routine Exams 04/25/22 05:00 Completed XR chest 1V portable [id number] Routine Exams 04/26/22 08:33 Completed XR forearm LT 2V [id number] Stat Exams 04/24/22 11:38 Completed Radiology Impressions Chest CT 04/24/22 11:03 IMPRESSION: Significant tortuosity and ectasia of the thoracic aorta and four-chamber cardiac enlargement. Right rib and scapular fractures. Small to moderate volume hemothorax with no pneumothorax identified. Consolidation in the right lower lobe. Head CT 04/24/22 11:03 IMPRESSION: No acute intracranial abnormality. Forearm X-Ray 04/24/22 11:38 IMPRESSION: No acute abnormality. Abdomen/Pelvis CT 04/24/22 12:02 IMPRESSION: No acute abnormality of the pelvis or abdomen including bony structure. Incidental findings in the abdomen and pelvis as above. 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 There is no acute abnormality of the thoracic aorta. The hemothorax is due to the rib fracture. There is a small amount of subcutaneous emphysema and a small amount of air in the right pleural space associated with the rib fractures unchanged from the noncontrast exam. Chest X-Ray 04/27/22 07:00 IMPRESSION: Mild medial right basilar pulmonary partial atelectasis/consolidation, stable. Laboratory Results WBC 6.9 10^3/uL (4.0-10.0) 04/27/22 03:19 RBC 4.73 10^6/uL (4.1-5.3) 04/27/22 03:19 Hgb 15.1 g/dL (11.7-16.6) 04/27/22 03:19 Hct 45.5 % (42.0-52.0) 04/27/22 03:19 MCV 96.2 fl (80-94) H 04/27/22 03:19 MCH 31.9 pg (28.0-34.0) 04/27/22 03:19 MCHC 33.2 g/dL (30.0-36.0) 04/27/22 03:19 RDW 13.7 % (12.1-15.1) 04/27/22 03:19 Plt Count 131 10^3/cmm (130-400) 04/27/22 03:19 MPV 11.7 fL (7.4-10.4) H 04/27/22 03:19 Neut % (Auto) 63.3 % 04/27/22 03:19 Lymph % (Auto) 21.1 % 04/27/22 03:19 [place] % (Auto) 13.0 % 04/27/22 03:19 Eos % (Auto) 1.6 % 04/27/22 03:19 Baso % (Auto) 0.6 % 04/27/22 03:19 Neut # (Auto) 4.35 10^3/uL (1.8-7.7) 04/27/22 03:19 Lymph # (Auto) 1.5 10^3/uL (0.8-4.8) 04/27/22 03:19 [place] # (Auto) 0.9 10^3/uL (0.2-0.9) 04/27/22 03:19 Eos # (Auto) 0.1 10^3/uL (0.0-0.8) 04/27/22 03:19 Baso # (Auto) 0.0 10^3/uL (0.0-0.1) 04/27/22 03:19 Nucleated RBC % (auto) 0 % 04/27/22 03:19 Nucleated RBCs # 0.0 /100WBC 04/27/22 03:19 PT 14.30 SECONDS (12.1-14.9) 04/24/22 20:44 INR 1.08 (0.8-1.2) 04/24/22 20:44 APTT 29.9 SECONDS (23.9-36.7) 04/24/22 20:44 Sodium 136 mmol/L (136-145) 04/29/22 07:54 Potassium 3.5 mmol/L (3.5-5.1) 04/29/22 07:54 Chloride 97 mmol/L (98-107) L 04/29/22 07:54 Carbon Dioxide 27 mmol/L (22-29) 04/29/22 07:54 Anion Gap 15.5 (5-19) 04/29/22 07:54 BUN 12 mg/dL (8-23) 04/29/22 07:54 Creatinine 1.1 mg/dL (0.7-1.2) 04/29/22 07:54 GFR Calculation Not Reportable 04/29/22 07:54 Glucose 111 mg/dL (65-115) 04/29/22 07:54 Calculated Osmolality 282 mOsm/kg (285-295) L 04/29/22 07:54 Calcium 9.6 mg/dL (8.5-10.5) 04/29/22 07:54 Total Bilirubin 1.1 mg/dL (0.15-1.2) 04/29/22 07:54 AST 27 U/L (0-40) 04/29/22 07:54 ALT 10 U/L (0-41) 04/29/22 07:54 Alkaline Phosphatase 62 U/L (40-130) 04/29/22 07:54 Ammonia 20 umol/L (16-60) 04/29/22 07:54 Total Protein 6.6 g/dL (6.6-8.7) 04/29/22 07:54 Albumin 3.1 g/dL (3.5-5.2) L 04/29/22 07:54 Globulin 3.5 g/dL (1.3-4.6) 04/29/22 07:54 TSH 4.02 uIU/mL (0.27-4.20) 04/29/22 07:54 Vitals Last Vital Signs Temp 97.7 F 04/30/22 11:55 Pulse 85 04/30/22 11:55 Resp 16 04/30/22 11:55 BP 127/82 04/30/22 11:55 Pulse Ox 95 04/30/22 11:55 O2 Del Method 04/30/22 08:10 O2 Flow Rate 2 04/28/22 09:00 Discharge Plan Discharge Patient Disposition: Home Condition: Stable Prescriptions: New acetaminophen 500 mg Tablet 650 mg PO Q8H PRN (Reason: pain) Qty: 0 0RF olanzapine 5 mg Tablet,Disintegrating 2.5 mg PO DAILY 30 Days Qty: 30 0RF Vitamin B-1 (mononitrate) 100 mg Tablet 100 mg PO DAILY 30 Days Qty: 30 0RF Mucinex 600 mg Tablet Extended Release 12hr 600 mg PO BID PRN (Reason: cough) Qty: 0 0RF ketorolac 10 mg tablet 10 mg PO Q8H PRN (Reason: pain) 5 Days Qty: 14 0RF Discharge Orders: Discharge Order (Routine); Ordered 04/30/22 Ordered By: Marianne Trotter Other Ambulatory Orders: DME: Ezequiel (Order) Location: None Selected Ordered By: Marianne Trotter Discharge Diet: Usual diet Discharge Activity: Resume usual activity Patient Instructions: Opioid Safety, Pain Management Discharge Attestations Time Spent in Discharge Care*: greater than 30 min Quality Metrics Clinical Quality Measures [ No reported AMI, CVA or VTE this stay] Coding Level of Care Code Acute [facility] note Diagnoses Closed rib fracture S22.39XA Hemothorax J94.2 Closed right scapular fracture S42.101A Subcutaneous emphysema T79.7XXA Pneumothorax J93.9
== END 2022-04-30 17:30 | disposition home or self-care (01) ==
LOC: ER 15:36 → ICU 17:59 → MEDSURG 04-26 16:20
PROVIDERS: Surgery; Admitting Provider Internal Medicine; Emergency Provider Emergency Medicine; Visit Provider Student in an Organized Health Care Education/Training Program
DX: S22.39XA Fracture of one rib, unspecified side, initial encounter for closed fracture (principal); S42.101A Fracture of unspecified part of scapula, right shoulder, initial encounter for closed fracture; W18.2XXA Fall in (into) shower or empty bathtub, initial encounter; T79.7XXA Traumatic subcutaneous emphysema, initial encounter; J94.2 Hemothorax; J93.9 Pneumothorax, unspecified; Z91.81 History of falling
CPT/HCPCS: 12345; 36415; 70450; 71045; 71250; 71275; 73090; 74176; 80048; 80053; 82140; 84443; 85025; 85610; 85730; 94640; 94760; 96365; 96366; 96372; 96375; 96376; 97110; 97116; 97161; 99285; G0378; J0696; J1630; J1650; J1885; J2270; J3486; J7030; Q9967

== ENCOUNTER 2023-07-08 13:00 | Outpatient (CLI) | payer OTHER, SELFPAY ==
--- NOTE | 2023-07-08 13:09 | US_ITS ---
WS: [id number] THYROID ULTRASOUND HISTORY: LYMPH NODE VS MASS TO LEFT SIDE OF NECK COMPARISON: None available. Right lobe: 1.3 cm x 1.5 cm x 3.5 cm (w x ap x l). Volume: 3.5 cm3. Normal size and echotexture. No significant are dominant nodules are present. Subcentimeter hypoechoi c nodule in the mid thyroid measures 6 x 7 x 6 mm. Left lobe: 1.4 cm x 1.6 cm x 3.2 cm (w x ap x l). Volume: 3.7 cm3. Normal size and echotexture. No significant or dominant nodules are present. Isthmus: 0.3 cm. Palpable area along the LEFT neck corresponds to a very superficial hypoechoic nodule measuring 10 x 11 x 6 mm. No increased vascularity. Very nonspecific in appearance. Could be a small lymph node or s ebaceous cyst. IMPRESSION: 1. No suspicious or dominant thyroid nodules. 2. Palpable nodule along the LEFT cervical chain corresponds to a very superficial mass measuring 10 x 11 x 6 mm. Very nonspecific in appearance. May be a small superficial lymph node or sebaceous cyst. If this increases in size surgical removal or reevaluation by neck CT with IV contrast may be helpfu lJimmy
== END 2023-07-08 13:01 | disposition home or self-care (01) ==
LOC: RAD 13:00
PROVIDERS: PCP Emergency Medicine Emergency Medical Services; Visit Provider Emergency Medicine Emergency Medical Services
DX: R22.1 Localized swelling, mass and lump, neck (principal)
CPT/HCPCS: 76536

== ENCOUNTER → 2023-07-30 14:41 | Outpatient (BNVA) | payer OTHER, SELFPAY | PROVIDERS: PCP Emergency Medicine Emergency Medical Services; Visit Provider Nurse Practitioner Family | DX: Z85.828 Personal history of other malignant neoplasm of skin (principal); L82.0 Inflamed seborrheic keratosis; L57.0 Actinic keratosis; L82.1 Other seborrheic keratosis; D22.5 Melanocytic nevi of trunk; L81.4 Other melanin hyperpigmentation; L57.8 Other skin changes due to chronic exposure to nonionizing radiation; L85.3 Xerosis cutis; D69.2 Other nonthrombocytopenic purpura; D48.5 Neoplasm of uncertain behavior of skin; L72.8 Other follicular cysts of the skin and subcutaneous tissue | CPT/HCPCS: 11102; 17000; 17110; 99203 ==

== ENCOUNTER → 2023-08-13 08:10 | Outpatient (BNVA) | payer OTHER, SELFPAY | PROVIDERS: PCP Emergency Medicine Emergency Medical Services; Visit Provider Dermatology | DX: C44.519 Basal cell carcinoma of skin of other part of trunk (principal); D48.5 Neoplasm of uncertain behavior of skin | CPT/HCPCS: 11102; 17262 ==

== ENCOUNTER 2023-09-27 10:51 | Emergency (ER) | payer OTHER, SELFPAY ==
[2023-09-27] VITALS (18 sets, daily range): BP systolic 150–185; BP diastolic 89–114; PULSE 76–99; RESP 18–32; TEMP 36.6; O2SAT 88–100; BMI 23.6
--- NOTE | 2023-09-27 11:07 | XRR_ITS ---
PROCEDURE INFORMATION: Exam: XR Left Humerus Exam date and time: 09/27/2023 11:50 AM Age: 82 years old Clinical indication: Injury or trauma; Fall; Blunt trauma (contusions or hematomas); Shoulder; Left; Additional info: Trauma/fall TECHNIQUE: Imaging protocol: Radiologic exam of the left humerus. Views: 2 or more views. COMPARISON: CR (CHEST, ) 09/27/2023 11:50 AM FINDINGS: Bones/joints: Chronic avulsion fracture of the medial humeral epicondyle. Soft tissues: Normal. XR/[place] [id number] IMPRESSION: No acute fracture of the humerus.
--- NOTE | 2023-09-27 11:07 | XRR_ITS ---
PROCEDURE INFORMATION: Exam: XR Left Shoulder Exam date and time: 09/27/2023 11:50 AM Age: 82 years old Clinical indication: Injury or trauma; Fall; Blunt trauma (contusions or hematomas); Shoulder; Left; Additional info: Trauma/pain TECHNIQUE: Imaging protocol: Radiologic exam of the left shoulder. Views: 2 or more views. COMPARISON: CR (UP EXM, ) 09/27/2023 11:50 AM FINDINGS: Bones/joints: Moderate degenerative disease of the left acromioclavicular joint. Displaced left 4th, 5th, 6th, 7th and 10th rib fractures with associated left pleural effusion. Pleural space: No large left pneumothorax. Soft tissues: Normal. XR/XR shoulder LT min 2V* [id number] IMPRESSION: 1. No left shoulder fractures. 2. Multiple displaced left rib fractures involving the left 4th, 5th, 6th, 7th and 10th ribs with segmented fracture of the left 6th rib.
--- NOTE | 2023-09-27 11:10 | CTR_ITS ---
PROCEDURE INFORMATION: Exam: CT Cervical Spine Without Contrast Exam date and time: 09/27/2023 11:58 AM Age: 82 years old Clinical indication: Injury or trauma; Fall; Blunt trauma; Additional info: Trauma/fall TECHNIQUE: Imaging protocol: Computed tomography of the cervical spine without contrast. Axial, coronal and sagittal reformatted images were created and reviewed. Radiation optimization: All CT scans at this facility use at least one of these dose optimization techniques: automated exposure control; mA and/or kV adjustment per patient size (includes targeted exams where dose is matched to clinical indication); or iterative reconstruction. COMPARISON: CT head wo con* [id number] 04/24/2022 11:51 AM RADIATION DOSE METRICS: Total DLP (mGy-cm): 698 FINDINGS: Bones/joints: Osteopenia. Straightening of the normal cervical lordosis. New age-indeterminate defect in C1 anterior arch, likely chronic. No CT evidence of acute fracture, dislocation or subluxation. Mild anterolisthesis of C3 on C4, C4 on C5 and C7 on T1. Partial C5-C7 bony fusion. Alignment otherwise anatomic. Mild dextroscoliosis. Vertebral body heights maintained. Multilevel degenerative changes, characterized by disc space narrowing, osteophytosis and uncovertebral and facet joint hypertrophy. Multilevel spinal canal and neural foraminal stenosis. Lungs: Biapical emphysematous change. Soft tissues: Grossly unremarkable. CT/CT cervical spin wo con* [id number] IMPRESSION: 1. New age-indeterminate defect in C1 anterior arch, likely chronic. 2. Additional findings, as above.
--- NOTE | 2023-09-27 11:12 | ED_ITS ---
HPI - Extremity Problem 2 General: Chief complaint: Extremity Injury, Upper Stated complaint: LEFT SHOULDER PAIN S/P FALL Time Seen by Provider: 09/27/23 11:05 History of Present Illness: 82-year-old male presents emergency depa rtment with complaints of left shoulder and left rib pain after fall last night. He states he was drinking last night and attempted to go to his apartment and had a misstep off of 1 step and fell onto the concrete with his left shoulder. He states he did not lose consciousness but he did hit his head he is having nausea at present. He states his left shoulder pain is a 10 out of 10 and worse with movement. He states the pain is an aching pain. Review of Systems 2 General: Reports: 10 or more systems reviewed and unremarkable except in HPI and below Musc: Reports: extremity pain and joint pain PFS ED 2 PFSH: Medical History (Updated 09/27/23 @ 14:53 by Alvaro Michel MD) No pertinent past medical history Social History (Updated 04/24/22 @ 23:12 by Jennifer Lagunas RN) Smoking and tobacco/nicotine status: never used tobacco/nicotine Alcohol intake: current Alcohol intake frequency: few times a month Substance/Drug Use: never Physical Exam 2 Narrative: EXAM NARRATIVE: Constitutional: the patient appears well nourished and with normal development. Vital signs reviewed as documented. HENMT: Normocephalic, atraumatic. External ears normal appearance without drainage. Nose without drainage, normal appearance. Mucus membranes moist. Neck is supple, No jugular venous distension, trachea is midline, no appreciable carotid bruits. No lymphadenopathy. No meningeal signs. Flexion, extension and lateral rotation is without pain. Eyes: Pupils are equal, round, reactive to light and accommodation. No scleral icterus. Extra-ocular movement are intact. Thorax is symmetrical and with equal rise and fall with respirations. Tender to palpation to the left lateral posterior and anterior chest wall Resp: Lungs are clear to auscultation. No wheezes, rales, crackles or ronchi at present. Cardio: Regular rate and rhythm. Positive S1, S2. No appreciable murmurs, rubs or gallops. GI: Abdominal exam reveals normal bowel sounds to all quadrants. No organomegaly. No obvious palpable masses noted. No hepatomegally appreciated. Soft, non-tender to palpation. Extremity: Extremities are non-edematous and both femoral and pedal pulses are 2+ and equal bilaterally. Moves all extremities well, sensation in all extremities. Left shoulder tender to palpation to the deltoid region Neuro: Alert and oriented x4, person, place, time and situation. Cranial nerves II through XII are grossly intact, there is no focal neurological deficits that I can appreciate at present. Motor strength in the upper and lower extremities are equal and bilateral 5/5. Psych: Cooperative, calm, normal thought process, appropriate judgment. Skin: No lesions, rashes. No gross abnormalities noted. Back: Symmetrical, no obvious deformity, No CVA tenderness Course 2 Vital Signs: Vital signs: Vital Signs Temperature 97.9 F 09/27/23 10:53 Pulse Rate 90 09/27/23 15:15 Respiratory Rate 25 H 09/27/23 15:15 Blood Pressure 151/100 09/27/23 15:15 Pulse Oximetry 92 09/27/23 15:15 Oxygen Delivery Me thod Nasal Cannula 09/27/23 15:15 Oxygen Flow Rate 4 09/27/23 15:15 MDM - Extremity (Nontraumatic) Medical Decision Making Physical exam completed and documented given the patient's complaints of injury I will obtain a CT scan of the head, cervical spine and T-spine. I will also obtain a chest x-ray, left shoulder and humerus x-ray and provide him pain medication as needed. Patient's initial oxygen level was marginal and we have placed him on supplemental oxygen. I have contacted the hospitalist physician and discussed the case with her and at this time given the patient's recent trauma and increased oxygen requirement we will transfer to the trauma center for higher level of care. Medical Records I reviewed the patient's medical records. Lab Data I reviewed the patient's lab results. 09/27/23 11:43 09/27/23 11:43 Radiology Impressions Humerus X-Ray 09/27/23 11:07 IMPRESSION: No acute fracture of the humerus. Shoulder X-Ray 09/27/23 11:07 IMPRESSION: 1. No left shoulder fractures. 2. Multiple displaced left rib fractures involving the left 4th, 5th, 6th, 7th and 10th ribs with segmented fracture of the left 6th rib. Cervical Spine CT 09/27/23 11:10 IMPRESSION: 1. New age-indeterminate defect in C1 anterior arch, likely chronic. 2. Additional findings, as above. Head CT 09/27/23 11:51 IMPRESSION: 1. No CT evidence of acute intracranial pathology. 2. Additional findings, as above. Thoracic Spine CT 09/27/23 11:51 IMPRESSION: 1. No thoracic spine acute compression deformity or spondylolisthesis. 2. Multiple partially assessed bilateral rib fractures that needs better assessment by dedicated chest CT. Ribs w/Chest X-Ray 09/27/23 13:33 IMPRESSION: Acute minimally displaced left 3rd, 4th, 5th, 6th and 9th rib fractures. Segmental left 6th rib fracture. Laboratory Results WBC 6.70 10^3/uL (3.29-11.43) 09/27/23 11:43 RBC 4.90 10^6/uL (3.85-5.65) 09/27/23 11:43 Hgb 15.50 g/dL (11.27-16.99) 09/27/23 11:43 Hct 46.4 % (37-53) 09/27/23 11:43 MCV 94.7 fl (82-101) 09/27/23 11:43 MCH 31.6 pg (27-33) 09/27/23 11:43 MCHC 33.4 g/dL (30-55) 09/27/23 11:43 RDW 13.5 % (12.1-15.1) 09/27/23 11:43 Plt Count 157 10^3/cmm (157-399) 09/27/23 11:43 MPV 11.9 fL (7.4-10.4) H 09/27/23 11:43 Neut % (Auto) 74.2 % 09/27/23 11:43 Lymph % (Auto) 18.5 % 09/27/23 11:43 [place] % (Auto) 6.3 % 09/27/23 11:43 Eos % (Auto) 0.0 % 09/27/23 11:43 Baso % (Auto) 0.4 % 09/27/23 11:43 Neut # (Auto) 4.97 10^3/uL (1.8-7.7) 09/27/23 11:43 Lymph # (Auto) 1.2 10^3/uL (0.8-4.8) 09/27/23 11:43 [place] # (Auto) 0.4 10^3/uL (0.2-0.9) 09/27/23 11:43 Eos # (Auto) 0.0 10^3/uL (0.0-0.8) 09/27/23 11:43 Baso # (Auto) 0.0 10^3/uL (0.0-0.1) 09/27/23 11:43 Nucleated RBC % (auto) 0 % 09/27/23 11:43 Nucleated RBCs # 0.0 /100WBC 09/27/23 11:43 PT 12.90 SECONDS (12.1-14.9) 09/27/23 11:43 INR 0.95 (0.8-1.2) 09/27/23 11:43 APTT 28.7 SECONDS (23.9-36.7) 09/27/23 11:43 Sodium 135 mmol/L (136-145) L 09/27/23 11:43 Potassium 4.3 mmol/L (3.5-5.1) 09/27/23 11:43 Chloride 96 mmol/L (98-107) L 09/27/23 11:43 Carbon Dioxide 21 mmol/L (22-29) L 09/27/23 11:43 Anion Gap 22.3 (5-19) H 09/27/23 11:43 BUN 13 mg/dL (8-23) 09/27/23 11:43 Creatinine 1.0 mg/dL (0.7-1.2) 09/27/23 11:43 GFR Calculation Not Reportable 09/27/23 11:43 Glucose 139 mg/dL (65-115) H 09/27/23 11:43 Calculated Osmolality 282 mOsm/kg (285-295) L 09/27/23 11:43 Calcium 9.2 mg/dL (8.5-10.5) 09/27/23 11:43 Total Bilirubin 0.8 mg/dL (0.15-1.2) 09/27/23 11:43 AST 25 U/L (0-40) 09/27/23 11:43 ALT 11 U/L (0-41) 09/27/23 11:43 Alkaline Phosphatase 119 U/L (40-130) 09/27/23 11:43 Total Protein 8.2 g/dL (6.6-8.7) 09/27/23 11:43 Albumin 4.1 g/dL (3.5-5.2) 09/27/23 11:43 Globulin 4.1 g/dL (1.3-4.6) 09/27/23 11:43 All radiology interpretation(s) finalized by discharge Discharge Plan Discharge Patient Disposition: Xfer Short-Term Hosp Clinical Impression: Acute pain of left shoulder, Accidental fall Closed rib fracture Qualifiers: Encounter type: initial encounter Rib fracture type: multiple ribs Laterality: left Qualified Code(s): S22.42XA - Multiple fractures of ribs, left side, initial encounter for closed fracture Condition: Stable Referrals: Twin Miguel DO [Primary Care Provider] - Coding Level of Care Code ED Electrical/Instrument Technician for Carlin Garcia
[2023-09-27] MEDS: ondansetron 2 mg/ML SDV 2 mL 4 MG IVP (11:43)
--- NOTE | 2023-09-27 11:51 | CTR_ITS ---
PROCEDURE INFORMATION: Exam: CT Thoracic Spine Without Contrast Exam date and time: 09/27/2023 12:02 PM Age: 82 years old Clinical indication: Injury or trauma; Fall; Blunt trauma (contusions or hematomas); Additional info: Trauma/pain TECHNIQUE: Imaging protocol: Computed tomography of the thoracic spine without contrast. Radiation optimization: All CT scans at this facility use at least one of these dose optimization techniques: automated exposure control; mA and/or kV adjustment per patient size (includes targeted exams where dose is matched to clinical indication); or iterative reconstruction. COMPARISON: CT cervical spin wo con* [id number] 09/27/2023 11:58 AM RADIATION DOSE METRICS: Total DLP (mGy-cm): 639.51 FINDINGS: Bones/joints: There is a curvature of the thoracic spine convex to the right. There is multilevel moderate degenerative disease of the thoracic spine with endplate osteophytes. No compression deformity of the vertebral bodies. Nondisplaced fractures of posterior arches of the left 1st, left 4th, left 5th, right 8th and right 9th ribs are partially included. Soft tissues: Unremarkable. Vasculature: Large descending aortic aneurysm. Vascular calcifications. Lungs: Bilateral apical predominant lung emphysema. Pleural spaces: No large pneumothorax. Bilateral pleural effusions. CT/CT thoracic spin wo con* [id number] IMPRESSION: 1. No thoracic spine acute compression deformity or spondylolisthesis. 2. Multiple partially assessed bilateral rib fractures that needs better assessment by dedicated chest CT.
--- NOTE | 2023-09-27 11:51 | CTR_ITS ---
PROCEDURE INFORMATION: Exam: CT Head Without Contrast Exam date and time: 09/27/2023 11:58 AM Age: 82 years old Clinical indication: Injury or trauma; Fall; Blunt trauma (contusions or hematomas); Additional info: Trauma/fall TECHNIQUE: Imaging protocol: Computed tomography of the head without contrast. Axial, coronal and sagittal reformatted images were created and reviewed. Radiation optimization: All CT scans at this facility use at least one of these dose optimization techniques: automated exposure control; mA and/or kV adjustment per patient size (includes targeted exams where dose is matched to clinical indication); or iterative reconstruction. COMPARISON: CT head wo con* [id number] 04/24/2022 11:51 AM RADIATION DOSE METRICS: Total DLP (mGy-cm): 1045.5 FINDINGS: Brain: Patchy areas of hypoattenuation in the periventricular and subcortical white matter, consistent with chronic small vessel ischemic disease. Focal, well-circumscribed hypodensity in the basal ganglia and left thalamus, consistent with chronic lacunar infarction. No CT evidence of acute intracranial hemorrhage or acute territorial infarction. No significant mass effect or midline shift. Basal cisterns patent. Cerebral ventricles: Prominence of the cortical sulci, cisterns and ventricular system, consistent with cerebral and cerebellar volume loss. Paranasal sinuses: Mild polypoid mucosal thickening of the ethmoid air cells and paranasal sinuses. No fluid levels. Mastoid air cells: Grossly unremarkable. Bones/joints: No acute osseous abnormality. Soft tissues: Grossly unremarkable. Vasculature: Calcific atherosclerotic disease in the cavernous internal carotid arteries, as well as the vertebro-basilar system. CT/CT head wo con* [id number] IMPRESSION: 1[address] No CT evidence of acute intracranial pathology. 2. Additional findings, as above.
[2023-09-27 12:17] LABS: Alanine Aminotransferase 11 U/L (0-41); Albumin Level 4.1 g/dL (3.5-5.2); Alkaline Phosphatase 119 U/L (40-130); Anion Gap 22.3 (5-19); Aspartate Amino Transferase 25 U/L (0-40); Blood Urea Nitrogen 13 mg/dL (8-23); Calcium 9.2 mg/dL (8.5-10.5); Carbon Dioxide 21 mmol/L (22-29); Chloride 96 mmol/L (98-107); Creatinine Clr Calc Pharmacy 56.5646; Globulin 4.1 g/dL (1.3-4.6); Glucose 139 mg/dL (65-115); Osmolality Calculated 282 mOsm/kg (285-295); Potassium 4.3 mmol/L (3.5-5.1); Sodium 135 mmol/L (136-145); Total Bilirubin 0.8 mg/dL (0.15-1.2); Total Protein 8.2 g/dL (6.6-8.7)
--- NOTE | 2023-09-27 13:33 | XRR_ITS ---
PROCEDURE INFORMATION: Exam: XR Ribs Exam date and time: 09/27/2023 2:05 PM Age: 82 years old Clinical indication: Injury or trauma; Fall; Rib area, bilateral; Blunt trauma; Additional info: Trauma/pain TECHNIQUE: Imaging protocol: Radiologic exam of the of the ribs. Views: 3 views. Bilateral ribs. COMPARISON: CT angio chest [id number] 01/12/2023 1:13 PM FINDINGS: Bones/joints: Multiple chronic right rib fractures, with bridging callus formation. Acute minimally displaced left 3rd, 4th, 5th, 6th and 9th rib fractures. Segmental left 6th rib fracture. Lungs: There is a left pleural effusion with left lower lobe atelectasis. Pleural space: No pneumothorax. Vasculature: Aortic arch calcifications. Soft tissues: Normal. XR/XR ribs BI mn 4V w [id number] IMPRESSION: Acute minimally displaced left 3rd, 4th, 5th, 6th and 9th rib fractures. Segmental left 6th rib fracture.
--- NOTE | 2023-09-27 14:40 | PC.PHAR ---
PT IS [facility] MED IS TAMSULOSIN 0.4MG
[2023-09-27 15:27] LABS: Basophils % 0.4 %; Hematocrit 46.4 % (37-53); Lymphocytes # 1.2 10^3/uL (0.8-4.8); Lymphocytes % 18.5 %; Mean Corpuscular HGB Conc 33.4 g/dL (30-55); Mean Corpuscular Hemoglobin 31.6 pg (27-33); Mean Corpuscular Volume 94.7 fl (82-101); Mean Platelet Volume 11.9 fL (7.4-10.4); Monocytes # 0.4 10^3/uL (0.2-0.9); Monocytes % 6.3 %; Neutrophils # 4.97 10^3/uL (1.8-7.7); Neutrophils % 74.2 %; Nucleated Red Blood Cells % 0 %; Platelet Count 157 10^3/cmm (157-399); Red Cell Distribution Width 13.5 % (12.1-15.1)
[2023-09-27 15:32] LABS: INR 0.95 (0.8-1.2)
[2023-09-27 15:33] LABS: Partial Thromboplastin Time 28.7 SECONDS (23.9-36.7)
[2023-09-27] MEDS: fentaNYL 50 mcg/mL INJ 2mL 25 MCG IVP (16:36)
== END 2023-09-27 15:40 | disposition short-term general hospital (02) ==
PROVIDERS: Emergency Provider Internal Medicine; PCP Emergency Medicine Emergency Medical Services
DX: S22.42XA Multiple fractures of ribs, left side, initial encounter for closed fracture (principal); M25.512 Pain in left shoulder; W19.XXXA Unspecified fall, initial encounter
CPT/HCPCS: 70450; 71111; 72125; 72128; 73030; 73060; 80053; 85025; 85610; 85730; 96374; 96375; 99285; J2405; J3010

== ENCOUNTER 2023-11-04 07:45 | Outpatient (CLI) | payer OTHER, SELFPAY ==
--- NOTE | 2023-11-04 08:04 | CT_ITS ---
WS: [id number] CTA THORACIC TECHNIQUE: Contrast enhanced CTA of the thoracic aorta with coronal and sagittal reformatted images a nd maximum intensity projection (MIP) images. CLINICAL INFORMATION: FOLLOW UP ON ANEURYSMS COMPARISON: 01/12/2023 DLP: 1215.[address] scans at [facility] use at least one of these dose optimization techniques: automated e xposure control; mA and/or kV adjustment per patient size (includes targeted exams where dose is matc hed to clinical indication); or iterative reconstruction. FINDINGS: Tortuous ectatic thoracic aorta. Mild aortic calcification. Peripherally calcified mural thrombus julieth cending thoracic aorta. Celiac is patent in the upper abdomen. Ascending thoracic aorta measures 3.7 cm in maximum dimension. Descending thoracic aorta measures 3.7 cm just above the diaphragm. Slight aneurysmal dilatation proximal aortic arch measuring 3.6 cm. Enl arged main pulmonary arteries can be seen with pulm arterial hypertension. Cardiomegaly. No mediastinal or hilar lymphadenopathy. No axillary lymphadenopathy. Adrenal glands ar e normal. Reflux into the hepatic veins can be seen with RIGHT heart dysfunction. Partially visualize d RIGHT renal cyst. Moderate thoracic kyphosis. Mild thoracic curve. Advanced chronic emphysematous changes. Bibasilar atelectasis. Chronic pleural thickening with plate and screw fixation multiple LEFT rib fractures. This is new compared to previous. Chronic RIGHT rib f ractures with callus formation. IMPRESSION: 1. Tortuous ectatic thoracic aorta is unchanged in appearance compared to the prior study 2. 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 3. Proximal main pulmonary arteries can be seen in pulmonary arterial hypertension. 4. Reflux into the hepatic veins can be seen with RIGHT heart dysfunction. Recommend correlation wit h echocardiography. Cardiomegaly. 5. Chronic LEFT rib fractures with interval plate and screw fixation with chronic pleural thickening . 6. Advanced chronic emphysematous changes.
[2023-11-04] MEDS: iohexol 350 mg/mL 500 mL Btl (per mL) IV (08:49)
== END 2023-11-04 07:46 | disposition home or self-care (01) ==
LOC: RAD 07:45
PROVIDERS: PCP Emergency Medicine Emergency Medical Services; Visit Provider Emergency Medicine Emergency Medical Services
DX: I71.21 Aneurysm of the ascending aorta, without rupture (principal); I51.7 Cardiomegaly; J43.9 Emphysema, unspecified
CPT/HCPCS: 71275; Q9967

== ENCOUNTER 2023-11-04 07:45 | Outpatient (CLI) | payer OTHER, SELFPAY ==
--- NOTE | 2023-11-04 08:02 | CT_ITS ---
WS: [id number] CT ABDOMEN PELVIS TECHNIQUE: Noncontrast CT of the abdomen and contrast-enhanced CT of the abdomen and pelvis with saad nal and sagittal reformatted images. CLINICAL INFORMATION: FOLLOW UP ON ANEURYSMS COMPARISON: None. DLP: 1215.[address] scans at [facility] use at least one of these dose optimization techniques: automated e xposure control; mA and/or kV adjustment per patient size (includes targeted exams where dose is matc hed to clinical indication); or iterative reconstruction. FINDINGS: Aortic endograft with biiliac extension. Celiac and SMA are patent. Proximal renal arteries are paten t. Excluded aneurysm sac is unchanged in appearance compared to 04/24/2022. No evidence of increasing aneurysm or aneurysm sac. Densely calcified iliac arteries. Proximal iliac arteries appear patent wit h biiliac extension. Advanced chronic emphysematous changes in the lung bases. Bilateral partially visualized rib fracture s with fixation on the LEFT. Mild diffuse fatty infiltration of the liver. Mild intrahepatic biliary ductal dilatation. Normal portal vein and splenic vein. Normal pancreas. Normal spleen. Thickening of the gastric rugae can be seen with gastritis. Normal GE junction. Adrenal glands are normal. Bilateral renal atrophy. Bilateral renal cysts. No hydronephrosis in eithe r kidney. Enlarged partially calcified prostate with evidence of bladder outlet obstruction. Prostate measures approximately 3.8 x 3.6 cm. Recommend correlation PSA. Heterogeneous nodular enhancement. M ild thickening of the seminal vesicles bilaterally. Fat-containing umbilical hernia. Facet joint arth ritis RIGHT hip. Retroperitoneal and paravertebral collateral vessels unchanged from previous and can be seen with portal venous hypertension. Recommend correlation with liver function tests. IMPRESSION: 1. 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 No evidence of increasing aneurysm sac. 2. Enlarged prostate. Recommend correlation PSA. Evidence of bladder outlet obstruction. 3. Retroperitoneal and paravertebral collateral vessels unchanged from previous and can be seen with portal venous hypertension. Recommend correlation with liver function tests. 4. Mild intrahepatic biliary dilatation is unchanged from previous. Mild diffuse fatty infiltration of the liver. Recommend correlation with biliary function studies. 5. Evidence of gastritis.
== END 2023-11-04 07:46 | disposition home or self-care (01) ==
LOC: RAD 07:46
PROVIDERS: PCP Emergency Medicine Emergency Medical Services; Visit Provider Emergency Medicine Emergency Medical Services
DX: I72.9 Aneurysm of unspecified site (principal)
CPT/HCPCS: 74178

== ENCOUNTER 2024-04-30 22:06 | Emergency (ER) | payer OTHER, MEDICARE, SELFPAY ==
[2024-04-30 22:08] VITALS: BP 148/98; PULSE 65; RESP 20; TEMP 36.6; O2SAT 93; BMI 23.6
--- NOTE | 2024-04-30 22:17 | CTR_ITS ---
PROCEDURE INFORMATION: Exam: CT Head Without Contrast Exam date and time: 04/30/2024 10:35 PM Age: 83 years old Clinical indication: Injury or trauma; Blunt trauma (contusions or hematomas); Patient HX: Patient sustained a fall while drinking at a bar. Laceration to left eyebrow with laceration and hematoma to left parietal. ; Additional info: Head injury TECHNIQUE: Imaging protocol: Computed tomography of the head without contrast. Radiation optimization: All CT scans at this facility use at least one of these dose optimization techniques: automated exposure control; mA and/or kV adjustment per patient size (includes targeted exams where dose is matched to clinical indication); or iterative reconstruction. COMPARISON: CT head wo con* [id number] 09/27/2023 11:58 AM RADIATION DOSE METRICS: Total DLP (mGy-cm): 1122.5 FINDINGS: Brain: Small foci of hypodensity in the bilateral basal ganglia likely from remote lacunar infarcts. Age-related parenchymal atrophy with enlargement of the CSF spaces. There is patchy hypoattenuation in the deep and subcortical white matter, favored to represent chronic small vessel ischemic change. Cerebral ventricles: Bilateral choroid plexus xanthogranulomatous. Paranasal sinuses: Mucosal thickening of the left maxillary sinus. Mastoid air cells: Visualized mastoid air cells are well aerated. Bones: Severe degenerative changes the base of the skull with chronic fracture/osteolysis of the anterior C1 ring. Soft tissues: Left frontal scalp hematoma measuring 3.1 x 0.6 cm. 10 x 5 mm nonspecific soft tissue nodularity in the right frontal scalp (series 4, image 31). CT/CT head wo con* [id number] IMPRESSION: 1. No intracranial abnormality. 2. Left frontal scalp hematoma.
--- NOTE | 2024-04-30 22:17 | CTR_ITS ---
PROCEDURE INFORMATION: Exam: CT Cervical Spine Without Contrast Exam date and time: 04/30/2024 10:38 PM Age: 83 years old Clinical indication: Injury or trauma; Blunt trauma; Prior surgery; Surgery date: 6+ months; Surgery type: Mandibular and costal fixation; Patient HX: Patient sustained a fall while drinking at a bar. Laceration to left eyebrow with laceration and hematoma to left parietal. TECHNIQUE: Imaging protocol: Computed tomography of the cervical spine without contrast. Radiation optimization: All CT scans at this facility use at least one of these dose optimization techniques: automated exposure control; mA and/or kV adjustment per patient size (includes targeted exams where dose is matched to clinical indication); or iterative reconstruction. COMPARISON: CT cervical spin wo con* [id number] 09/27/2023 11:58 AM RADIATION DOSE METRICS: Total DLP (mGy-cm): 623.97 FINDINGS: Bones: No acute fracture. Straightening of the cervical lordosis. Severe cervical spondylosis. Fusion of the C5-C7 vertebral bodies. Chronic fracture versus spondylolysis of the anterior C1 ring. No significant disc bulge or herniation. No severe spinal canal stenosis. Lungs: Centrilobular emphysema. Soft tissues: Unremarkable. CT/CT cervical spin wo con* [id number] IMPRESSION: No acute fracture or malalignment.
--- NOTE | 2024-04-30 22:28 | ED_ITS ---
HPI - Fall General: Chief Complaint: Fall Stated Complaint: FALL Time Seen by Provider: 04/30/24 22:11 Source: patient and EMS Mode of arrival: EMS Limitations: no limitations History of Present Illness: 83-year-old male who is at a [employer] and he had fell. Did hit his head has a superficial laceration to his forehead he is intoxicated here does not remember what really happened. He has a mild headache with some neck pain denies any other injuries. Associated symptoms-after fall: Reports headache(s) and neck pain; Denies abdominal pain or chest pain Related Data Home Medications Medication Instructions Recorded Confirmed cholecalciferol (vitamin D3) 50 50 mcg PO DAILY 09/27/23 09/27/23 mcg (2,000 unit) capsule (Vitamin D3) multivitamin 1 tab PO QAM 09/27/23 09/27/23 tamsulosin 0.4 mg capsule 0.4 mg PO QAM 09/27/23 09/27/23 vitamin B complex 1 tab PO DAILY 09/27/23 09/27/23 Previous Rx's Medication Instructions Recorded acetaminophen 500 mg tablet 650 mg (1.3 x 500 mg) PO Q8H PRN 04/30/22 pain #0 tabs Allergies Allergy/AdvReac Type Severity Reaction Status Date / Time aspirin Allergy ALGY-Anaphy Verified 04/24/22 11:31 laxis naproxen [From Anaprox] Allergy ALGY-Hives Verified 04/24/22 11:31 Sulfa (Sulfonamide Allergy ALGY-Difficulty Verified 04/24/22 11:31 Antibiotics) Swallowing Review of Systems Const: Denies: fever(s), chills, body aches or change in appetite Eyes: Denies: blurry vision or eye discomfort ENMT: Denies: throat pain or dental pain Card: Denies: chest pain Resp: Denies: dyspnea GI: Denies: abdominal pain, nausea, vomiting or diarrhea Musc: Reports: neck pain; Denies: back pain Skin/Breast: Denies: rash Neuro: Reports: headache(s) PFSH ED PFSH: Medical History No pertinent past medical history Social History Smoking and tobacco/nicotine status: never used tobacco/nicotine Alcohol intake: current Alcohol intake frequency: few times a month Substance/Drug Use: never Physical Exam Const: COMMON NORMALS: no acute distress, patient oriented x3 and healthy appearing OTHER: intoxicated HENMT: COMMON NORMALS: normocephalic HEAD & SCALP: normocephalic OTHER: hematoma to forehead with abrasion Eye: COMMON NORMALS: Equal, round and reactive pupils present and EOMs intact bilaterally PUPIL: Yes Equal, round and reactive pupils present Neck/C-Spine: COMMON NORMALS: full ROM and supple Chest: COMMONS NORMALS: normal inspection of the chest and normal palpation of entire chest wall Resp: COMMON NORMALS: normal respiratory effort, No retractions, No use of accessory muscles and clear to auscultation bilaterally AUSCULTATION: clear to auscultation bilaterally Cardio: COMMON NORMALS: regular rate, regular rhythm and No murmurs present (Cardio) RATE: regular rate RHYTHM: regular rhythm GI: COMMON NORMALS: Normal to inspection, nondistended, normoactive bowel sounds present, Soft to palpation, non-tender and no masses PALPATION: Yes Soft to palpation Extremity: COMMON NORMALS: normal to inspection and full ROM Neuro: COMMON NORMALS: patient oriented x3, moves all extremities and no focal motor deficits Psych: COMMON NORMALS: mental status grossly normal, Normal thought process present and cooperative THOUGHT PROCESS: Normal thought process present Skin: COMMON NORMALS: no rashes or lesions noted and no wounds GENERAL SKIN EXAM: no rashes or lesions noted Course Vital Signs: Vital signs: Vital Signs Temperature 98 F 04/30/24 22:08 Pulse Rate 65 04/30/24 22:08 Respiratory Rate 20 H 04/30/24 22:08 Blood Pressure 148/98 04/30/24 22:08 Pulse Oximetry 93 04/30/24 22:08 Oxygen Delivery Me thod Room Air 04/30/24 22:08 MDM - Fall Medical Decision Making Patient presents here with close head injury from a fall head CT neck CT are normal he is ambulatory here he does have a friend who will discharge him with his friend he stable for discharge follow-up with PCP return if worsens no lacerations that need repair Medical Records I reviewed the patient's medical records. Lab Data Radiology Impressions Cervical Spine CT 04/30/24 22:17 IMPRESSION: No acute fracture or malalignment. Head CT 04/30/24 22:17 IMPRESSION: 1. No intracranial abnormality. 2. Left frontal scalp hematoma. All radiology interpretation(s) finalized by discharge Discharge Plan Discharge Patient Disposition: Home Clinical Impression: Fall, Closed head injury, Alcohol intoxication Condition: Stable Prescriptions: No Action acetaminophen 500 mg Tablet 650 mg PO Q8H PRN (Reason: pain) Qty: 0 0RF multivitamin Tablet 1 tab PO QAM tamsulosin 0.4 mg Capsule 0.4 mg PO QAM vitamin B complex Tablet 1 tab PO DAILY Vitamin D3 50 mcg (2,000 unit) Capsule 50 mcg PO DAILY Discharge Orders: Discharge ED (Routine); Ordered 04/30/24 Ordered By: Sisi Mittal Referrals: Twin Miguel DO [Primary Care Provider] - 4-7 days Discharge Diet: Advance as tolerated Discharge Activity: Resume usual activity Patient Instructions: Head Injury (ED), Alcohol Intoxication (ED) Coding Level of Care Code ED Building Custodial Supervisor for Carlin Garcia
[2024-04-30 22:41] VITALS: BP 146/85; PULSE 64; O2SAT 91
[2024-04-30 23:00] VITALS: BP 130/80; PULSE 65; O2SAT 93
[2024-04-30 23:31] VITALS: BP 139/77; PULSE 72; O2SAT 93
== END 2024-04-30 23:30 | disposition home or self-care (01) ==
PROVIDERS: Emergency Provider Emergency Medicine; PCP Emergency Medicine Emergency Medical Services
DX: S00.81XA Abrasion of other part of head, initial encounter (principal); F10.129 Alcohol abuse with intoxication, unspecified; Y90.9 Presence of alcohol in blood, level not specified; W19.XXXA Unspecified fall, initial encounter
CPT/HCPCS: 70450; 72125; 99284

== ENCOUNTER 2024-05-17 15:37 | Emergency (ER) | payer OTHER, MEDICARE, SELFPAY ==
[2024-05-17 15:43] VITALS: BP 120/77; PULSE 84; RESP 24; TEMP 36.6; O2SAT 97; BMI 21.9
--- NOTE | 2024-05-17 16:06 | CTR_ITS ---
PROCEDURE INFORMATION: Exam: CT Cervical Spine Without Contrast Exam date and time: 05/17/2024 6:01 PM Age: 83 years old Clinical indication: Injury or trauma; Additional info: Fall TECHNIQUE: Imaging protocol: Computed tomography of the cervical spine without contrast. Radiation optimization: All CT scans at this facility use at least one of these dose optimization techniques: automated exposure control; mA and/or kV adjustment per patient size (includes targeted exams where dose is matched to clinical indication); or iterative reconstruction. COMPARISON: CT cervical spin wo con* [id number] 04/30/2024 10:38 PM RADIATION DOSE METRICS: Total DLP (mGy-cm): 904 FINDINGS: Bones: Normal craniocervical and atlantoaxial alignment. There is no evidence of increased density within the spinal canal to suggest hemorrhage. Odontoid process appears intact. Moderate degenerative change at the atlantodental articulation. Normal alignment of the cervical spine vertebral bodies and facets without evidence of listhesis or skipped/perched facet. Moderate diffuse spondylosis throughout the cervical spine with complete loss of the disc space and vertebral body fusion at the C6-C7 level and partially at the C5-C6 level. Disc space narrowing and osteophyte formation throughout. Moderate diffuse facet arthrosis with facet joint fusion at C2-C3 bilaterally. No cervical spinal fracture is seen. No aggressive osseous lesion. Chronic appearing fusion defect anteriorly at the C1 ring not significantly changed from prior comparison of 09/27/2023 Paranasal sinuses: Partially imaged mucosal sinus disease in the right sphenoid sinus. Mastoid air cells: Visualized mastoid air cells are clear. Prevertebral and retropharyngeal spaces: The prevertebral soft tissues are normal in thickness. Lungs: Emphysematous changes in the lung apices. Vasculature: There is atherosclerotic calcification in the carotid bulbs. Soft tissues: The visualized superficial soft tissues have a normal appearance. CT/CT cervical spin wo con* [id number] IMPRESSION: 1. No evidence of acute cervical spinal fracture or malalignment. 2. Moderate to severe diffuse spondylosis. 3. 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
--- NOTE | 2024-05-17 16:06 | CTR_ITS ---
PROCEDURE INFORMATION: Exam: CT Head Without Contrast Exam date and time: 05/17/2024 6:01 PM Age: 83 years old Clinical indication: Injury or trauma; Additional info: Trauma/fall TECHNIQUE: Imaging protocol: Computed tomography of the head without contrast. Radiation optimization: All CT scans at this facility use at least one of these dose optimization techniques: automated exposure control; mA and/or kV adjustment per patient size (includes targeted exams where dose is matched to clinical indication); or iterative reconstruction. COMPARISON: CT head wo con* [id number] 04/30/2024 10:35 PM RADIATION DOSE METRICS: Total DLP (mGy-cm): 1193 FINDINGS: Brain: There is patchy hypoattenuation in the periventricular white matter. While nonspecific, this is favored to represent chronic small vessel ischemic change. There is a small linear area of increased density along the anterior interhemispheric fissure on the left measuring approximately 1 cm (image 38, series 3 and image 62, series 9) suggesting a tiny subdural hematoma. No midline shift. There is mild cerebral volume loss with associated mild prominence of the CSF spaces. Cerebral ventricles: The ventricles appear enlarged, in proportion to the mild parenchymal volume loss. Paranasal sinuses: Visualized paranasal sinuses are normally aerated and clear with the exception of trace sinus disease in the right sphenoid sinus. Mastoid air cells: Visualized mastoid air cells are clear. Orbital cavities: The globes appear intact. No orbital fracture is seen. Bones: Calvarium appears intact. Soft tissues: Prominent left periorbital soft tissue swelling with cephalohematoma. Vasculature: There is calcific atherosclerosis within the cavernous carotids. CT/CT head wo con* [id number] IMPRESSION: 1. Small area of increased density along the anterior interhemispheric fissure measuring approximately 1 cm in size suggesting a tiny subdural hematoma. 2. Prominent left periorbital soft tissue swelling without evidence of injury to the globe or orbit. 3. Chronic senescent changes as above.
--- NOTE | 2024-05-17 16:06 | CTR_ITS ---
PROCEDURE INFORMATION: Exam: CT Maxillofacial Without Contrast Exam date and time: 05/17/2024 6:01 PM Age: 83 years old Clinical indication: Injury or trauma; Additional info: Trauma/fall TECHNIQUE: Imaging protocol: Computed tomography of the face without contrast. Radiation optimization: All CT scans at this facility use at least one of these dose optimization techniques: automated exposure control; mA and/or kV adjustment per patient size (includes targeted exams where dose is matched to clinical indication); or iterative reconstruction. COMPARISON: CT head wo con* [id number] 05/17/2024 6:01 PM RADIATION DOSE METRICS: Total DLP (mGy-cm): 703 FINDINGS: Paranasal sinuses: No air-fluid levels. Orbital cavities: Orbits are normal. Globes are unremarkable. Bones: A metallic plate and screws transfix healed fractures of the right mandible. No acute bony abnormality detected.The bony structures demonstrate diffuse osteopenia. Soft tissues: Prominent soft tissue swelling surrounds the left orbit. CT/CT facial bones wo con* [id number] IMPRESSION: Soft tissue swelling without fracture
--- NOTE | 2024-05-17 16:07 | ECG_ITS ---
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: : 1940 Requested By: Jossie Calle Order Number: [id number] Reading MD: SAMIA HUI Measurements Intervals [place] Rate: 78 P: 0 DE: 0 QRS: -29 QRSD: 95 T: 49 QT: 347 QTc: 396 Interpretive Statements ATRIAL FIBRILLATION MINIMAL VOLTAGE CRITERIA FOR LVH, CONSIDER NORMAL VARIANT [MEETS CRITERIA IN ONE OF: R(aVL), S(V1), R(V5), R(V5/V6)+S(V1)] ANTERIOR MYOCARDIAL INFARCTION , PROBABLY OLD [40+ ms Q WAVE AND/OR ST/T ABNORMALITY IN V3/V4] INFERIOR MYOCARDIAL INFARCTION , OF INDETERMINATE AGE [40+ ms Q WAVE AND/OR ST/T ABNORMALITY IN II/aVF] No previous ECG available for comparison Electronically Signed On 05-18-2024 20:08:20 CDT by SAMIA HUI [id number]
--- NOTE | 2024-05-17 16:07 | XRR_ITS ---
PROCEDURE INFORMATION: Exam: XR Chest Exam date and time: 05/17/2024 6:46 PM Age: 83 years old Clinical indication: Injury or trauma; Fall; Blunt trauma (contusions or hematomas) TECHNIQUE: Imaging protocol: Radiologic exam of the chest. Views: 1 view. COMPARISON: CT angio chest [id number] 11/04/2023 8:22 AM FINDINGS: Lungs: Unremarkable. No consolidation or mass. Pleural spaces: Unremarkable. No pleural effusion. No pneumothorax. Heart/Mediastinum: Unremarkable. No cardiomegaly. Bones/joints: Metallic plates and screws transfix healing fractures of the left 4th, 5th, 6th and 7th ribs. There are healing mildly displaced fractures involving the right 4th, 5th, 6th, 7th, 8th and 9th ribs. No definite acute bony fracture is noted. XR/XR chest 1V portable [id number] IMPRESSION: Healing bilateral rib fractures
[2024-05-17 17:11] LABS: Troponin(5th) Baseline 27 ng/L (0-15)
[2024-05-17 17:13] LABS: Basophils % 0.5 %; Eosinophils # 0.1 10^3/uL (0.0-0.8); Eosinophils % 0.6 %; Hematocrit 44.3 % (37-53); Lymphocytes # 1.9 10^3/uL (0.8-4.8); Lymphocytes % 22.8 %; Mean Corpuscular HGB Conc 32.5 g/dL (30-55); Mean Corpuscular Volume 95.3 fl (82-101); Mean Platelet Volume 10.9 fL (7.4-10.4); Monocytes # 1.1 10^3/uL (0.2-0.9); Monocytes % 12.4 %; Neutrophils # 5.33 10^3/uL (1.8-7.7); Neutrophils % 62.9 %; Nucleated Red Blood Cells % 0 %; Platelet Count 194 10^3/cmm (157-399); Red Blood Count 4.65 10^6/uL (3.85-5.65); Red Cell Distribution Width 14.6 % (12.1-15.1); White Blood Count 8.47 10^3/uL (3.29-11.43)
[2024-05-17 17:17] LABS: Alanine Aminotransferase 9 U/L (0-41); Albumin Level 3.6 g/dL (3.5-5.2); Alkaline Phosphatase 85 U/L (40-130); Blood Urea Nitrogen 14 mg/dL (8-23); Calcium 9.5 mg/dL (8.5-10.5); Carbon Dioxide 26 mmol/L (22-29); Chloride 102 mmol/L (98-107); Creatine Phosphokinase 266 U/L (39-308); Creatinine Clr Calc Pharmacy 49.1089; Globulin 3.6 g/dL (1.3-4.6); Glucose 94 mg/dL (65-115); Osmolality Calculated 288 mOsm/kg (285-295); Sodium 139 mmol/L (136-145); Total Bilirubin 0.7 mg/dL (0.15-1.2); Total Protein 7.2 g/dL (6.6-8.7)
[2024-05-17 17:37] LABS: Anion Gap 15.6 (5-19); Aspartate Amino Transferase 24 U/L (0-40); Potassium 4.6 mmol/L (3.5-5.1)
[2024-05-17 18:00] VITALS: BP 138/91; PULSE 80; RESP 18; O2SAT 100
--- NOTE | 2024-05-17 18:07 | ECG_ITS ---
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: : 1940 Requested By: Jossie Calle Order Number: [id number] Reading MD: SAMIA HUI Measurements Intervals [place] Rate: 95 P: 19 [place]: 169 QRS: -24 QRSD: 114 T: 69 QT: 352 QTc: 444 Interpretive Statements SINUS RHYTHM WITH FREQUENT VENTRICULAR PREMATURE COMPLEXES WITH OCCASIONAL SUPRAVENTRICULAR PREMATURE COMPLEXES MODERATE INTRAVENTRICULAR CONDUCTION DELAY [105+ ms QRS DURATION, 80+ ms Q/S IN V1/V2, NO Q AND 60+ ms R IN I/aVL/V5/V6] NONSPECIFIC T-WAVE ABNORMALITY Compared to ECG 05/17/2024 16:53:13 Ventricular premature complex(es) now present Intraventricular conduction delay now present T-wave abnormality now present Atrial fibrillation no longer present Myocardial infarct finding no longer present Electronically Signed On 05-18-2024 20:12:29 CDT by SAMIA HUI [email or web address]/[id number]
--- NOTE | 2024-05-17 18:15 | XRR_ITS ---
PROCEDURE INFORMATION: Exam: XR Left Hand Exam date and time: 05/17/2024 6:50 PM Age: 83 years old Clinical indication: Injury or trauma; Fall; Blunt trauma (contusions or hematomas); Hand; Left; Additional info: Pain/fall TECHNIQUE: Imaging protocol: Radiologic exam of the left hand. Views: 3 or more views. COMPARISON: No relevant prior studies available. FINDINGS: Bones/joints: Prominent arthritic changes involve all of the IP joints as well as the 1st carpometacarpal joint. I see no bony fracture. Soft tissues: Normal. XR/XR hand LT min 3V* [id number] IMPRESSION: 1. No acute findings. 2. Multifocal osteoarthritis noted
--- NOTE | 2024-05-17 18:15 | XRR_ITS ---
PROCEDURE INFORMATION: Exam: XR Left Hip Exam date and time: 05/17/2024 6:54 PM Age: 83 years old Clinical indication: Injury or trauma; Fall; Blunt trauma (contusions or hematomas); Left; Hip; Additional info: W/ pelvis TECHNIQUE: Imaging protocol: Radiologic exam of the left hip. Views: 2 or 3 views hip with pelvis when performed. COMPARISON: CT abdomen pelvis wo/w [id number] 11/04/2023 8:22 AM FINDINGS: Bones/joints: Unremarkable. No acute fracture. Soft tissues: Unremarkable. XR/XR hip LT 2-3V wo/w pel* [id number] IMPRESSION: No acute findings.
--- NOTE | 2024-05-17 19:11 | ED_ITS ---
HPI - Fall 2 General: Chief Complaint: Fall Stated Complaint: Fall - left hand and eye injury Time Seen by Provider: 05/17/24 19:00 History of Present Illness: Patient presents to the ER by private vehicle with complaint of a fall last night about midnight. Said he landed on the floor after he bounced off the kitchen cabinet he has a large bruise and hematoma on his left eye, patient does not remember anything until about 2 hours later when he woke up on the floor. Patient denies any anticoagulation. Patient has no neurodeficits at this time. Patient fell about 2 weeks ago and hit his head and about 2 months ago before that fell and broke several ribs and had them plated to [facility] in [place] Related Data Home Medications Medication Instructions Recorded Confirmed cholecalciferol (vitamin D3) 50 50 mcg PO DAILY 09/27/23 09/27/23 mcg (2,000 unit) capsule (Vitamin D3) multivitamin 1 tab PO QAM 09/27/23 09/27/23 tamsulosin 0.4 mg capsule 0.4 mg PO QAM 09/27/23 09/27/23 vitamin B complex 1 tab PO DAILY 09/27/23 09/27/23 Previous Rx's Medication Instructions Recorded acetaminophen 500 mg tablet 650 mg (1.3 x 500 mg) PO Q8H PRN 04/30/22 pain #0 tabs Allergies Allergy/AdvReac Type Severity Reaction Status Date / Time aspirin Allergy ALGY-Anaphy Verified 05/17/24 15:53 laxis naproxen [From Anaprox] Allergy ALGY-Hives Verified 05/17/24 15:53 Sulfa (Sulfonamide Allergy ALGY-Difficulty Verified 05/17/24 15:53 Antibiotics) Swallowing Review of Systems 2 General: Reports: 10 or more systems reviewed and unremarkable except in HPI and below PFSH ED 2 PFSH: Medical History No pertinent past medical history Social History Smoking and tobacco/nicotine status: never used tobacco/nicotine Alcohol intake: current Alcohol intake frequency: few times a month Substance/Drug Use: never Physical Exam 2 Const: COMMON NORMALS: no acute distress, average body habitus, patient oriented x3, no limitations, healthy appearing, alert and well nourished HENMT: COMMON NORMALS: normocephalic, hearing grossly normal bilaterally, external ears normal and Normal external nose present; head/scalp not atraumatic (Very large hematoma over left orbital region) HEAD & SCALP: normocephalic; not atraumatic (Very large hematoma over left orbital region) NOSE: Normal external nose present EXTERNAL EAR: Yes external ears normal Neck/C-Spine: COMMON NORMALS: full ROM, no lymphadenopathy, supple, no meningeal signs, no JVD and Thyroid normal THYROID: Thyroid normal Chest: COMMONS NORMALS: normal inspection of the chest and normal palpation of entire chest wall Resp: COMMON NORMALS: normal respiratory effort, No retractions, No use of accessory muscles and clear to auscultation bilaterally AUSCULTATION: clear to auscultation bilaterally Cardio: COMMON NORMALS: no JVD, regular rate, regular rhythm, S1 normal heart sound present, S2 normal heart sound present, No gallops present (Cardio), No clicks present (Cardio), No murmurs present (Cardio) and No rub (Cardio) R ATE: regular rate RHYTHM: regular rhythm HEART SOUNDS: S1 normal heart sound present and S2 normal heart sound present GI: COMMON NORMALS: Normal to inspection, nondistended, normoactive bowel sounds present, Soft to palpation, non-tender, No hepatosplenomegaly present and no masses PALPATION: Yes Soft to palpation and Yes No hepatosplenomegaly present Neuro: COMMON NORMALS: patient oriented x3 SENSORIUM/ORIENTATION: Yes alert MENINGEAL SIGNS: Yes no meningeal signs Course 2 Vital Signs: Vital signs: Vital Signs Temperature 97.8 F 05/17/24 15:43 Pulse Rate 87 05/17/24 19:33 Respiratory Rate 18 05/17/24 19:33 Blood Pressure 130/84 05/17/24 19:33 Pulse Oximetry 95 05/17/24 19:33 Oxygen Delivery Me thod Room Air 05/17/24 19:33 MDM - Fall Medical Decision Making I feel that the called by the radiologist for anterior interhemispheric subdural hematoma measuring 1 cm, we did call [facility] for trauma transfer, Dr. Lott was the accepting physician. We will fly the patient there if weather permitting. Medical Records I reviewed the patient's medical records. Lab Data I reviewed the patient's lab results. 05/17/24 16:44 05/17/24 16:44 Radiology Impressions Cervical Spine CT 05/17/24 16:06 IMPRESSION: 1. No evidence of acute cervical spinal fracture or malalignment. 2. Moderate to severe diffuse spondylosis. 3. 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 Face CT 05/17/24 16:06 IMPRESSION: Soft tissue swelling without fracture Head CT 05/17/24 16:06 IMPRESSION: 1. Small area of increased density along the anterior interhemispheric fissure measuring approximately 1 cm in size suggesting a tiny subdural hematoma. 2. Prominent left periorbital soft tissue swelling without evidence of injury to the globe or orbit. 3. Chronic senescent changes as above. ADDENDUM: 05/17/241856 THIS REPORT CONTAINS FINDINGS THAT MAY BE CRITICAL TO PATIENT CARE. The findings were verbally communicated by me via telephone conference to Dr. Polanco at 6:55 PM CDT on 05/17/2024. The findings were acknowledged and understood. Chest X-Ray 05/17/24 16:07 IMPRESSION: Healing bilateral rib fractures Hand X-Ray 05/17/24 18:15 IMPRESSION: 1. No acute findings. 2. Multifocal osteoarthritis noted Hip/Pelvis X-Ray 05/17/24 18:15 IMPRESSION: No acute findings. Laboratory Results WBC 8.47 10^3/uL (3.29-11.43) 05/17/24 16:44 RBC 4.65 10^6/uL (3.85-5.65) 05/17/24 16:44 Hgb 14.40 g/dL (11.27-16.99) 05/17/24 16:44 Hct 44.3 % (37-53) 05/17/24 16:44 MCV 95.3 fl (82-101) 05/17/24 16:44 MCH 31.0 pg (27-33) 05/17/24 16:44 MCHC 32.5 g/dL (30-55) 05/17/24 16:44 RDW 14.6 % (12.1-15.1) 05/17/24 16:44 Plt Count 194 10^3/cmm (157-399) 05/17/24 16:44 MPV 10.9 fL (7.4-10.4) H 05/17/24 16:44 Neut % (Auto) 62.9 % 05/17/24 16:44 Lymph % (Auto) 22.8 % 05/17/24 16:44 [place] % (Auto) 12.4 % 05/17/24 16:44 Eos % (Auto) 0.6 % 05/17/24 16:44 Baso % (Auto) 0.5 % 05/17/24 16:44 Neut # (Auto) 5.33 10^3/uL (1.8-7.7) 05/17/24 16:44 Lymph # (Auto) 1.9 10^3/uL (0.8-4.8) 05/17/24 16:44 [place] # (Auto) 1.1 10^3/uL (0.2-0.9) H 05/17/24 16:44 Eos # (Auto) 0.1 10^3/uL (0.0-0.8) 05/17/24 16:44 Baso # (Auto) 0.0 10^3/uL (0.0-0.1) 05/17/24 16:44 Nucleated RBC % (auto) 0 % 05/17/24 16:44 Nucleated RBCs # 0.0 /100WBC 05/17/24 16:44 Sodium 139 mmol/L (136-145) 05/17/24 16:44 Potassium 4.6 mmol/L (3.5-5.1) 05/17/24 16:44 Chloride 102 mmol/L (98-107) 05/17/24 16:44 Carbon Dioxide 26 mmol/L (22-29) 05/17/24 16:44 Anion Gap 15.6 (5-19) 05/17/24 16:44 BUN 14 mg/dL (8-23) 05/17/24 16:44 Creatinine 1.1 mg/dL (0.7-1.2) 05/17/24 16:44 GFR Calculation Not Reportable 05/17/24 16:44 Glucose 94 mg/dL (65-115) 05/17/24 16:44 Calculated Osmolality 288 mOsm/kg (285-295) 05/17/24 16:44 Calcium 9.5 mg/dL (8.5-10.5) 05/17/24 16:44 Total Bilirubin 0.7 mg/dL (0.15-1.2) 05/17/24 16:44 AST 24 U/L (0-40) 05/17/24 16:44 ALT 9 U/L (0-41) 05/17/24 16:44 Alkaline Phosphatase 85 U/L (40-130) 05/17/24 16:44 Creatine Kinase 266 U/L (39-308) 05/17/24 16:44 Troponin T Baseline 27 ng/L (0-15) H 05/17/24 16:44 Total Protein 7.2 g/dL (6.6-8.7) 05/17/24 16:44 Albumin 3.6 g/dL (3.5-5.2) 05/17/24 16:44 Globulin 3.6 g/dL (1.3-4.6) 05/17/24 16:44 All radiology interpretation(s) finalized by discharge Discharge Plan Discharge Patient Disposition: Xfer Short-Term Hosp Clinical Impression: Hematoma, subdural, with loss of consciousness, traumatic Qualifiers: Encounter type: initial encounter Qualified Code(s): S06.5X9A - Traumatic subdural hemorrhage with loss of consciousness of unspecified duration, initial encounter Condition: Stable Referrals: Twin Miguel DO [Primary Care Provider] - Coding Level of Care Code ED Blending Kettle 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
[2024-05-17 19:33] VITALS: BP 130/84; PULSE 87; RESP 18; O2SAT 95
[2024-05-17 19:41] LABS: INR 0.97 (0.8-1.2)
[2024-05-17 20:04] VITALS: BP 133/80; PULSE 79; RESP 18; O2SAT 92
[2024-05-17 20:12] LABS: Troponin 5 2HR 26.26 ng/L (0-15)
[2024-05-17 20:15] LABS: Troponin 5 2HR Delta -0.74 ABS# (0-10)
[2024-05-17 20:32] VITALS: BP 129/82; PULSE 74; RESP 18; O2SAT 90
== END 2024-05-17 20:40 | disposition short-term general hospital (02) ==
PROVIDERS: Physician Assistant; Emergency Provider Emergency Medicine; PCP Emergency Medicine Emergency Medical Services
DX: S06.5X9A Traumatic subdural hemorrhage with loss of consciousness of unspecified duration, initial encounter (principal); W18.39XA Other fall on same level, initial encounter
CPT/HCPCS: 36415; 70450; 70486; 71045; 72125; 73130; 73502; 80053; 82550; 84484; 85025; 85610; 93005; 99285

== ENCOUNTER 2024-07-18 12:23 | Outpatient (CLI) | payer OTHER, SELFPAY ==
--- NOTE | 2024-07-18 12:26 | CT_ITS ---
WS: [id number] CT ANGIOGRAPHY ABDOMEN PELVIS HISTORY: FOLLOW UP ANEURYSM TECHNIQUE: CT angiogram is performed during IV injection. Reformation images reviewed. All CT scans a Mendor use at least one of these dose optimization techniques: automated exposure contro l; mA and/or kV adjustment per patient size (includes targeted exams where dose is matched to clinica l indication); or iterative reconstruction. CONTRAST: Omnipaque 350; 100 mL IV. DLP: 946.98 mGy.cm COMPARISON: 11/04/2023 Emphysematous changes at the lung bases. Moderate cardiomegaly. Tortuous lower thoracic and abdominal aorta with ectasia. Small scattered hypodensities within the liver too small to characterize. Normal portal vein. Normal gallbladder. Reidentified is mild dilatation of the central bile ducts. Normal size spleen. Normal pa ncreas. No adrenal mass. Numerous bilateral renal cysts. No renal obstruction. 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 The [place] aneu rysm is not increasing in size. Aneurysmal sac is essentially contracted around the graft. There is n o perigraft soft tissue or hematoma. Mild aneurysmal dilatation of the RIGHT common iliac artery danya lar to prior studies. The distal iliac arteries into the femoral arteries are heavily calcified. Mese nteric arteries are well opacified. No GI tract obstruction. No ascites or adenopathy. Prostate gland encroaches into the urinary bladder. There is diffuse bladder wall thickening which is probably related to partial bladder outlet obstruction. CT/CT angio abdomen pelvis 10867 IMPRESSION: 1. 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 No periaortic collections or enlargement of the [place] aneurysm. 2. Densely calcified iliac arteries. 3. Bilateral renal cysts.
[2024-07-18] MEDS: iohexol 350 mg/mL 500 mL Btl (per mL) IV (13:16)
== END 2024-07-18 12:24 | disposition home or self-care (01) ==
LOC: RAD 12:23
PROVIDERS: PCP Family Medicine; Visit Provider Family Medicine
DX: J43.9 Emphysema, unspecified (principal); I51.7 Cardiomegaly; I77.810 Thoracic aortic ectasia; I77.811 Abdominal aortic ectasia; Z98.890 Other specified postprocedural states; I70.8 Atherosclerosis of other arteries; Q61.02 Congenital multiple renal cysts
CPT/HCPCS: 74174

== ENCOUNTER 2025-07-21 20:24 | Inpatient (IN) | payer OTHER, SELFPAY ==
[2025-07-21] VITALS (7 sets, daily range): BP systolic 113–176; BP diastolic 76–96; PULSE 64–75; RESP 16–20; TEMP 36.6; O2SAT 91–94; BMI 22.4; BMI 24.6
--- NOTE | 2025-07-21 20:38 | XRR_ITS ---
PROCEDURE INFORMATION: Exam: XR Left Hip Exam date and time: 07/21/2025 8:41 PM Age: 84 years old Clinical indication: Injury or trauma; Blunt trauma (contusions or hematomas); Prior surgery; Surgery date: 6+ months; Surgery type: Iliac stent; Ground level fall onto left hip. C/O pain. ; Additional info: Fall, include pelvis please TECHNIQUE: Imaging protocol: Radiologic exam of the left hip. Views: 2 or 3 views hip with pelvis when performed. COMPARISON: CT angio abdomen pelvis 15666 07/18/2024 12:49 PM FINDINGS: Bones/joints: Degenerative changes bilateral hips. Comminuted left intertrochanteric fracture, apex lateral angulation. Soft tissues: Unremarkable. Vasculature: Bilateral iliac stent grafts. XR/XR hip LT 2-3V wo/w pel* [id number] IMPRESSION: Comminuted left intertrochanteric fracture, apex lateral angulation.
--- OUTSIDE RECORDS SUMMARY | 2025-07-21 20:42 | XMS_ITS | Patient Health Record ---
Author Organization [facility] Address [address] [place] [address] Care Team Providers Care Engineering Manager Name Role Phone [facility] VILLAGOMEZ Primary Care Provider Un available Yajaira Daly Unavailable [phone] [facility] HAM Unavailable Unavailable Allergies Allergen (clinical drug ingredient) Drug/Non Drug Allergy documented on EMR Reaction Allergy Type Onset Date Status Substance with sulfonamide structure and antibacterial mechanism of action (substance) Sulfa Antibiotics Unknown Drug Allergy Active Reason For Referral No Information Medications Medication SIG (Take, Route, Frequency, Duration) Notes Start Date End Date Status Vitamin D3 Active Vitamin B1 twice a week Active Tamsulosin HCl 0.4 MG Capsule 1 capsule Orally Once a day; Duration: 90 days Active Social History Social History Depression Screening Social Info Question Answer Notes PHQ-9 Little interest or pleasure in doing thin gs Not at all Feeling tired or having little energy Not at all Trouble concentrating on thi ngs, such as reading the newspaper or watching television Nearly every day Moving or speaking so slowly that other people could have noticed. Or the opposite ? being so fidgety or restless that you have been moving around a lot more than usual Nearly every day Drugs/Alcohol: Social Info Question Answer Notes Alcohol Screen (Audit-C) Did you have a drink containing alcohol in the past year? Yes Points 0 Interpretation Negative Drugs Have you used drugs other than those for medical reasons in the past 12 months? No Tobacco Use: Social Info Question Answer Notes xTobacco Use/Smoking Are you a current every day sm oker Additional Details Category Social Info Options Details Drugs/Alcohol: Do you smoke marijuana? De nies Do you drink alcohol? Yes, Socia lly Problems Problem Type SNOMED Code ICD Code Onset Dates Problem Status W/U Status Risk Notes Problem Urinary tract obstruction (3297654) Obstructive and reflux uropathy, unspecified (N13.9) Active confirmed Problem Lower urinary tract symptoms due to benign prostatic hypertrophy (31399545473032) Benign prostatic hyperplasia with lower urinary tract symptoms (N40.1) Active confirmed Problem Asymptomatic microscopic hematuria (528192864316902 09) Asymptomatic microscopic hematuria (R31.21) Active confirmed Problem Recurrent urinary tract infection (419935921) Recurrent UTI (N39.0) Active confirmed Problem Incomplete emptying of bladder (589951629) Incomplete emptying of bladder (R33.9) Active confirmed Problem Renal cyst (326446534) Bilateral renal cysts (N28.1) Active confirmed Problem Lower urinary tract symptoms (459350978) Lower urinary tract symptoms (LUTS) (R39.9) Active confirmed Problem Kidney stone (46660622) Renal stones (N20.0) Active confirmed Problem Asymptomatic bacteriuria (449170234) Asymptomatic bacteriuria (R82.71) Active confirmed Problem Bladder diverticulum (500881141) 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 Plan Of Treatment Pending Test Test Name Order Date Blood Urea Nitrogen (BUN) 39942 11/11/19 23 Creatinine (B) 15267 11/10/2022 Insurance Providers Payer Name Payer Address Payer Phone Subscriber Number Group Number Insured Name Patient Relationship to Insured Coverage Start Date Coverage End Date [employer] [address] [place] [phone] [id number] George William Self - patient is the insured Medical (General) History Medical History History ICD Code measles mumps arthritis bladder infections COPD irritable bowel syndrome Surgical History Surgery Date(Month/Year) tonsillectomy 1948 broken neck repair 2018 broken jaw repair 2020 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
--- OUTSIDE RECORDS SUMMARY | 2025-07-21 20:42 | XMS_ITS | Patient Health Record ---
Author Organization [facility] Address [address] [place] [address] Care Team Providers Care Supervisor Solder Making Name Role Phone [facility] Primary Care Provider Danyell KELLY Prasad Unavailable [phone] [facility] Colin HAM Unavailable Unavailable TARYN PAYNE Unavailable [phone] Allergies Allergen (clinical drug ingredient) Drug/Non Drug Allergy documented on EMR Reaction Allergy Type Onset Date Status Substance with sulfonamide structure and antibacterial mechanism of action (substance) Sulfa Antibiotics Unknown Drug Allergy Active Results Component Value Reference Range Notes CLIENT EDUCATION TRACKING Reviewed date:09/08/2024 09:22:18 AM Interpretation: Performing Lab:[id number], [id number] Meeta Jewell MD Notes/Report: FASTING: NO CLIENT EDUCATION TRACKING The Requisition we received did not include a [employer] account number. To prevent delays in testing and processing of your orders please provide the following information with every order submitted: [facility] account number and account name Client address Client phone and fax number NPI number of ordering physician along with the physician name. Urinalysis, Routine Reviewed date:03/07/2025 11:18:54 AM Interpretation: Performing Lab: Notes/Report: Urine-Color yellow Appearance cloudy Glucose - Bilirubin - Ketones - Specific [place] 1.015 Occult Blood 3+ pH 6.0 Urine Protein trace Urobilinogen,Semi-Qn - Nitrite, Urine - WBC Esterase 3+ Urinalysis, Routine Reviewed date:09/06/2024 10:41:24 AM Interpretation: Performing Lab: Notes/Report: Urine-Color yellow Appearance cloudy Glucose - Bilirubin - Ketones - Specific [place] 1.015 Occult Blood 3+ pH 6.0 Urine Protein - Urobilinogen,Semi-Qn - Nitrite, Urine - WBC Esterase 3+ CULTURE, URINE, ROUTINE (395 ) Reviewed date:09/09/2024 08:45:29 AM Interpretation: Performing Lab:[id number] [facility], [id number] Meeta Jewell MD Notes/Report: FASTING: NO CULTURE, URINE, ROUTINE SEE NOTE CULTURE, URINE, ROUTINE Micro Number: [id number] Test Status: Final Specimen Source: Urine Specimen Quality: Adequate Result: Greater than 100,000 CFU/mL of Non-uropathogenic Gram positive organism May represent colonizers from external and internal genitalia. No further testing (including susceptibility) will be performed. NO COLLECTION DATE RECEIVED. WE HAVE USED THE DATE THE SPECIMEN WAS RECEIVED BY THIS LABORATORY THE COLLECTION DATE. IF THIS IS INCORRECT, PLEASE CONTACT CLIENT SERVICES. PHONE NUMBER: [phone] Reason For Referral No Information Medications Medication SIG (Take, Route, Frequency, Duration) Notes Start Date End Date Status Finasteride 5 MG 1 tablet Orally Once a day; Duration: 90 days 09/06/2024 03/02/2026 Active Potassium Active Vitamin B1 twice a week *Pick strength-form from [employer] for eRX* Not-Taking Multivitamin Not-Melo ing Vitamin D3 *Pick strength-form from [employer] for eRX* Not-Taking Tamsulosin HCl 0.4 MG 1 capsule Orally twice a day; Duration: 90 days Active Social History Tobacco Use: Social History Observation Description Date Details (start date - stop date) Current Smoker NA - NA Tobacco Control (Standard) Question Answer Notes Tobacco use: Current smoker How often do you smoke cigarettes? Every day How many cigarettes a day do you smoke? 6-10 How soon after you wake up d o you smoke your first cigarette? 6-30 minutes Are you interested in quitting? Thinking about q uitting AUDIT-C (Standard) Question Answer Notes Did you have a drink contain ing alcohol in the past year? Yes How often did you have a dri nk containing alcohol in the past year? 2 to 4 times a month (2 points) How many drinks did you have on a typical day when you were drinking in the past year? 3 or 4 drinks (1 point) How often did you have six o r more drinks on one occasion in the past year? 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) Active confirmed Problem Lower urinary tract symptoms due to benign prostatic hypertrophy (31004327953151) Benign prostatic hyperplasia with lower urinary tract symptoms (N40.1) Active confirmed Problem Asymptomatic microscopic hematuria (42012602553829632 ) Asymptomatic microscopic hematuria (R31.21) Active confirmed Problem Current smoker (98384097) Current smoker (F17.200) Active confirmed Problem Asymptomatic bacteriuria (052306988) Asymptomatic bacteriuria (R82.71) Active confirmed Problem Kidney stone (43507540) Renal stones (N20.0) Active confirmed Problem Nephrolithiasis (91562364) Nephrolithiasis (N20.0) Active confirmed Problem Bladder diverticulum (358305926) 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 Problem Lower urinary tract symptoms (479933986) Lower urinary tract symptoms (LUTS) (R39.9) Active confirmed Problem Renal cyst (451587119) Bilateral renal cysts (N28.1) Active confirmed Problem Recurrent urinary tract infection (576053613) Recurrent UTI (N39.0) Active confirmed Problem Incomplete emptying of bladder (268743845) Incomplete emptying of bladder (R33.9) Active confirmed Problem Benign prostatic hypertrophy with outflow obstruction (186646231) BPH loc w urin obs/LUTS (N40.1) Active confirmed Vital Signs Heart Rate 75 /min 03/07/2025 Height-cm 160.02 cm 03/07/2025 Blood pressure diastolic 82 mm Hg 03/07/2025 Weight-kg 67.59 kg 03/07/2025 Height 63 in 03/07/2025 Blood pressure systolic 156 mm Hg 03/07/2025 Weight 149 lbs 03/07/2025 BMI 26.39 kg/m2 03/07/2025 Procedures Procedure Date Ordered Date Performed Result Body Sit e Bladder Scan 09/06/2024 09/06/2024 N/A Bladder Scan 03/07/2025 03/07/2025 pvr 10mL Encounters Encounter Location Date Provider Diagnosis [facility] [address] [place] [address] 09/06/2024 TARYN PAYNE Benign prostatic hyperplasia with lower urinary tract symptoms N40.1 ; Incomplete bladder emptying R33.9 ; Bladder diverticulum N32.3 ; Dark urine R82.998 ; Microscopic hematuria R31.29 ; Leukocytes in urine R82.998 ; Nephrolithiasis N20.0 ; Renal cysts, acquired, bilateral N28.1 and Current smoker F17.200 [employer] [address] [place] [address] 03/07/2025 TARYN PAYNE Benign prostatic hyperplasia with lower urinary tract symptoms N40.1 ; Incomplete bladder emptying R33.9 ; Bladder diverticulum N32.3 ; Microscopic hematuria R31.29 ; Leukocytes in urine R82.998 ; Nephrolithiasis N20.0 ; Renal cysts, acquired, bilateral N28.1 and Current smoker F17.200 Assessments Encounter Date Diagnosis (ICD Code) Assessment Notes Treatment Notes Treatment Clinical Notes Section Notes 03/07/2025 Benign prostatic hyperplasia with lower urinary tract symptoms (ICD-10 - N40.1) 03/07/2025 Incomplete bladder emptying (ICD-10 - R33.9) 09/06/2024 Benign prostatic hyperplasia with lower urinary tract symptoms (ICD-10 - N40.1) 09/06/2024 Incomplete bladder emptying (ICD-10 - R33.9) 09/06/2024 Bladder diverticulum (ICD-10 - N32.3) 03/07/2025 Bladder diverticulum (ICD-10 - N32.3) 03/07/2025 Microscopic hematuria (ICD-10 - R31.29) 09/06/2024 Dark urine (ICD-10 - R82.998) 09/06/2024 Microscopic hematuria (ICD-10 - R31.29) 03/07/2025 Leukocytes in urine (ICD-10 - R82.998) 03/07/2025 Nephrolithiasis (ICD-10 - N20.0) 09/06/2024 Leukocytes in urine (ICD-10 - R82.998) 09/06/2024 Nephrolithiasis (ICD-10 - N20.0) 03/07/2025 Renal cysts, acquired, bilateral (ICD-10 - N28.1) 03/07/2025 Current smoker (ICD-10 - F17.200) 09/06/2024 Renal cysts, acquired, bilateral (ICD-10 - N28.1) 09/06/2024 Current smoker (ICD-10 - F17.200) 09/06/2024 Other UA with hematuria and leukocytes. He reports dark urine, but no obvious hematuria, dysuria or fever. I will culture urine and treat if indicated. We have discussed that diverticula and incomplete emptying make him increased risk for UTI. Continue to try and increase water intake. I will change Flomax to BID for better symptom control, and add Finasteride for max medication management for his BPH. RTC in 6 months with UA/PVR, or PRN sooner. 03/07/2025 Other UA abnormal, PVR 10ml. He is doing well on max medication management. Denies any bothersome s/e. RTC in 1 year with FR/PVR. Plan Of Treatment Pending Test Test Name Order Date Blood Urea Nitrogen (BUN) 25057 11/11/19 23 Creatinine (B) 49556 11/10/2022 ELECTRO-UROFLOWMETRY FIRST 01/14/2023 CULTURE, URINE, ROUTINE (395) 01/20/2024 CULTURE, URINE, ROUTINE (395) 09/06/2024 Bladder Scan 01/20/2024 Next Appt Details Provider Name:TARYN PAYNE, 0 03/07/2026 11:00:00 AM, [address] [place], [address], Insurance Providers Payer Name Payer Address Payer Phone Subscriber Number Group Number Insured Name Patient Relationship to Insured Coverage Start Date Coverage End Date [employer] [address] [place], [place] [phone] [id number] George William Self - patient is the insured Medical (General) History Medical History History ICD Code measles mumps arthritis bladder infections COPD irritable bowel syndrome PTSD Surgical History Surgery Date(Month/Year) tonsillectomy 194 broken neck repair 2017 broken jaw repair 2020 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
--- OUTSIDE RECORDS SUMMARY | 2025-07-21 20:42 | XMS_ITS ---
Author Organization [facility] are Care Team Providers Care Director Of Clinical Services Name Role Phone Catherine Velazquez Unavailable Unavailable Jairo Cantu Unavailable Unavailable Larissa Mazariegos Unavailable Unavailable Naheed Cantu Unavailable Unavailable Romario Katz Unavailable Unavailable Allergies and adverse reactions Code CodeSystem Substance Reaction Severity StartDate Concern Status 1191 RXNORM Aspirin Mild 10/05/2023 active 5640 RXNORM Ibuprofen Mild 10/05/[address] Sulfa Antibiotics Mild 10/05/2023 active Care Team Name Role Address Phone Organization Dates Jairo Cantu PCP [address] [place], [address], [place] (Office): : [facility] 10/07/2023 - 10/15/2023 Catherine Velazquez [address], [address], [place] (Office): : [facility] 10/07/2023 - 10/15/2023 Larissa Mazariegos [address], [address], [place] (Office): : [facility] 10/07/2023 - 10/15/2023 Naheed Alondra [address] [place], [place], [address] [place] [address] (Office): : : [facility] 10/07/2023 - 10/15/2023 Romario Katz [address] [place], [address], [facility] (Office): : : [phone] [facility] 10/07/2023 - 10/15/2023 Mental Status Section Date Assessment Total Score Description 10/15/2023 BIMS 15 cognitively int act CAM 0 No delirium ind icated PHQ-9 01 minimal depress ion 10/13/2023 BIMS 15 cognitively int act CAM 0 No delirium ind icated PHQ-9 01 minimal depress ion Insurance Providers Coverage Status Coverage Type Relationship to Subscriber Member Identifier Subscriber Identifier Group Identifier Payer Identifier and Other information 2023 Code: 51 Code System OID:[id number] .[id number]. 5 Code System Name: Source of Payment Typology (PHDSC) Display: Managed Care (Private) Translation: Code: HM Code System: OID:2.16.840.1 .[id number]. 1336 Code System Name: Insurance Type Code ([id number]) Display Name: Health Maintenance Organization (HMO) Plan Code: SELF Code System Name: HL7 RoleCode Code System OID:[id number] .[id number] Display Name: Self [id number] Root: [id number] Extension: [id number] Payer Identifier: Root: [id number] Extension: [id number] Payer Name: [facility] Address: [address] [address] City: [place] State: [place] Country: [place] Code: 81 Code System OID:2.16.840.1 .[id number]. 5 Code System Name: Source of Payment Typology (PHDSC) Display: Self Pay Translation: Code: 09 Code System: OID:[id number] .[id number]. 1336 Code System Name: Insurance Type Code ([id number]) Display Name: Self-pay Problems Problem # Description Date of onset Resolved Date Code CodeSystem Concern Status 1 COGNITIVE COMMUNICATION DEFICIT 10/07/[address] active 2 HYPOXEMIA 10/07/[address] active 3 MULTIPLE FRACTURES OF RIBS, LEFT SIDE, SUBSEQUENT ENCOUNTER FOR FRACTURE WITH ROUTINE HEALING 10/07/[address] active 4 OTHER REDUCED MOBILITY 10/07/[address] active 5 VITAMIN DEFICIENCY, UNSPECIFIED 10/07/[address] active 6 ACUTE RESPIRATORY FAILURE WITH HYPOXIA 10/05/[address] active 7 ALCOHOL DEPENDENCE WITH OTHER ALCOHOL-INDUCED DISORDER 10/05/[address] active 8 ATELECTASIS 10/05/[address] active 9 BENIGN PROSTATIC HYPERPLASIA WITH LOWER URINARY TRACT SYMPTOMS 10/05/[address] active 10 BILATERAL INGUINAL HERNIA, WITHOUT OBSTRUCTION OR GANGRENE, NOT SPECIFIED RECURRENT 10/05/[address] active 11 CARDIOMEGALY 10/05/[address] active 12 CONSTIPATION, UNSPECIFIED 10/05/[address] active 13 DIVERTICULOSIS OF INTESTINE, PART UNSPECIFIED, WITHOUT PERFORATION OR ABSCESS WITHOUT BLEEDING 10/05/[address] active 14 EMPHYSEMA, UNSPECIFIED 10/05/[address] active 15 ENCOUNTER FOR IMMUNIZATION 10/05/[address] active 16 MULTIPLE FRACTURES OF RIBS, UNSPECIFIED SIDE, SUBSEQUENT ENCOUNTER FOR FRACTURE WITH ROUTINE HEALING 10/05/2023 10/06/[address] completed 17 ORTHOSTATIC HYPOTENSION 10/05/[address] active 18 OTHER SPECIFIED DISORDERS OF BONE DENSITY AND STRUCTURE, UNSPECIFIED SITE 10/05/[address] active 19 PAIN, UNSPECIFIED 10/05/[address] active 20 TOBACCO USE 10/05/2023 Z72.0 ICD-10-CM active 21 UNSPECIFIED MACULAR DEGENERATION 10/05/[address] active Reason for Referral No Reasons for Referral Entered Social History Social History Observation Description Start Date End Date Code Code System Current Smoking Status Tobacco smoking consumption unknown 097824874 SNOMED CT Sex Assigned At Male 1940 [address]90[address]-8 [facility] Gender Identity Male 44849709704216 [address] Sexual Orientation Heterosexual (finding) 58071289 SNOMED CT Vital Signs Code Code System Vitals Name Values and Units Timing Information 9279-1 [facility] Respiratory Rate Value=18.0 Units=/m in 10/15/2023 8462-4 [facility] Blood Pressure-Diastolic Value=72 Un its=mmHg 10/15/2023 8480-6 [facility] Blood Pressure-Systolic Qipdj=451 Un its=mmHg 10/15/2023 8310-5 [facility] Body Temperature Value=97.8 Units= F 10/15/2023 8867-4 [facility] Heart rate Value=83.0 Units=/min 02/2024 04875-0 [facility] O2 % dC Oximetry Value=93.0 Units= % 10/15/2023 37244-3 [facility] Weight Tkdlo=718.0 Units=Lbs 11/2023 8302-2 [facility] Height Value=69.0 Units=Inches 10/05/2023
--- NOTE | 2025-07-21 20:44 | XRR_ITS ---
PROCEDURE INFORMATION: Exam: XR Chest Exam date and time: 07/21/2025 8:47 PM Age: 84 years old Clinical indication: Injury or trauma; Blunt trauma (contusions or hematomas); Prior surgery; Surgery date: 6+ months; Surgery type: Costal fixation; Ground level fall with left hip fracture. TECHNIQUE: Imaging protocol: Radiologic exam of the chest. Views: 1 view. COMPARISON: CR (CHEST, ) 05/17/2024 6:46 PM FINDINGS: Lungs: Unremarkable. No consolidation. Pleural spaces: Unremarkable. No pleural effusion. No pneumothorax. Heart/Mediastinum: Unremarkable. No cardiomegaly. Bones/joints: Old right-sided rib fractures. Postsurgical changes of left-sided ribs. Aortic atherosclerosis. XR/XR chest 1V portable [id number] IMPRESSION: No acute infiltrate or effusion.
--- NOTE | 2025-07-21 20:46 | W.ED.FALL ---
Documented by User: DILLON Morfin 07/21/25 21:44 HPI - Fall General: Chief Complaint: Fall Stated Complaint: ETOH/FALL Time Seen by Provider: 07/21/25 20:34 History of Present Illness: Patient is a 84-year-old gentleman with history of BPH, that presents to the emergency room after a fall on his left hip. Patient was drinking at the [employer], stated he had 6 beers, and typically stops at 3 beers, slipped, directly on his left hip. He has left hip pain. He is unable to ambulate. Denies any other pain. At first he thought he had a chest contusion, however decided his chest is not hurting, it was just a fall on his left side. He was brought in via EMS. Denies any shortness of breath. He is a chronic smoker. This occurred just prior to arrival. Associated symptoms-after fall: Denies abdominal pain, chest pain, headache(s) or neck pain Related Data Home Medications ?Medication ?Instructions ?Recorded ?Confirmed cholecalciferol (vitamin D3) 50 50 mcg PO DAILY 09/27/23 09/27/23 mcg (2,000 unit) capsule (Vitamin D3) multivitamin 1 tab PO QAM 09/27/23 09/27/23 tamsulosin 0.4 mg capsule 0.4 mg PO QAM 09/27/23 09/27/23 vitamin B complex 1 tab PO DAILY 09/27/23 09/27/23 Previous Rx's ?Medication ?Instructions ?Recorded acetaminophen 500 mg tablet 650 mg (1.3 x 500 mg) PO Q8H PRN 04/30/22 pain #0 tabs Allergies Allergy/AdvReac Type Severity Reaction Status Date / Time aspirin Allergy ALGY-Anaphy Verified 05/17/24 15:53 laxis naproxen (From Anaprox) Allergy ALGY-Hives Verified 05/17/24 15:53 Sulfa (Sulfonamide Allergy ALGY-Difficulty Verified 05/17/24 15:53 Antibiotics) Swallowing Review of Systems General: Reports: 10 or more systems reviewed and unremarkable except in HPI and below Const: Denies: fever(s) or chills ENMT: Denies: throat pain or mouth pain Card: Denies: chest pain or palpitations Resp: Denies: dyspnea or non-productive cough GI: Denies: abdominal pain, nausea or vomiting Musc: Reports: extremity pain, joint pain, joint swelling, joint redness, joint stiffness, limited range of motion and muscle cramps; Denies: neck pain or back pain Neuro: Denies: headache(s) or numbness in extremities PFSH ED PFSH: Medical History (Updated 07/21/25 @ 23:12 by Efrain Villalobos MD) Alcoholism, chronic BPH w urinary obs/LUTS No pertinent past medical history Social History (Updated 07/21/25 @ 23:09 by Efrain Villalobos MD) Smoking and tobacco/nicotine status: current every day tobacco/nicotine user cigarettes Years cigarettes smoked: 73 Alcohol intake: current Alcohol intake frequency: few times a week Alcohol use comment: 3 beers once or twice a week per patient's report but today he drank 6 Substance/Drug Use: former Former substance use details: Remote history of weed use no other drugs Additional social history: Patient wants DO NOT RESUSCITATE status is discussed with Efrain Villalobos MD on 07/21/2025 Current occupational status: retired Previous occupational history: See HPI 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 Physical Exam Const: COMMON NORMALS: no acute distress, average body habitus, patient oriented x3, no limitations, healthy appearing, alert and well nourished HENMT: COMMON NORMALS: normocephalic, hearing grossly normal bilaterally, external ears normal and Normal external nose present; head/scalp not atraumatic (Very large hematoma over left orbital region) HEAD & SCALP: normocephalic; not atraumatic (Very large hematoma over left orbital region) NOSE: Normal external nose present EXTERNAL EAR: Yes external ears normal Neck/C-Spine: COMMON NORMALS: full ROM, no lymphadenopathy, supple, no meningeal signs, no JVD and Thyroid normal THYROID: Thyroid normal Chest: COMMONS NORMALS: normal inspection of the chest and normal palpation of entire chest wall Resp: COMMON NORMALS: normal respiratory effort, No retractions, No use of accessory muscles and clear to auscultation bilaterally AUSCULTATION: clear to auscultation bilaterally Cardio: COMMON NORMALS: no JVD, regular rate, regular rhythm, S1 normal heart sound present, S2 normal heart sound present, No gallops present (Cardio), No clicks present (Cardio), No murmurs present (Cardio) and No rub (Cardio) RATE: regular rate RHYTHM: regular rhythm HEART SOUNDS: S1 normal heart sound present and S2 normal heart sound present GI: COMMON NORMALS: Normal to inspection, nondistended, normoactive bowel sounds present, Soft to palpation, non-tender, No hepatosplenomegaly present and no masses PALPATION: Yes Soft to palpation and Yes No hepatosplenomegaly present Extremity: NARRATIVE EXTREMITY EXAM: Left leg shortened and externally rotated. Pain over greater tuberosity on the left. Pedal pulses present. Neuro: COMMON NORMALS: patient oriented x3 SENSORIUM/ORIENTATION: Yes alert MENINGEAL SIGNS: Yes no meningeal signs Course Consultations: Consultation #1: Dr. Garcia accepts consult Vital 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 He has pain directly on his left hip. This occurred just prior to arrival. He does not have any other complaints. On physical examination, he has had an entire bone survey, that does not show any tenderness. He is not on any anticoagulation. He does not have any complaints at time of my evaluation other than his left hip. Discussed with Dr. Garcia when intertrochanteric fracture was noted on the left side, that will accept consultation. Awaiting call from Dr. Villalobos for hospitalist admission. Medical Records I reviewed the patient's medical records. Lab Data I reviewed the patient's lab results. 07/21/25 21:03 07/21/25 21:03 Radiology Impressions Hip/Pelvis X-Ray 07/21/25 20:38 IMPRESSION: Comminuted left intertrochanteric fracture, apex lateral angulation. Chest X-Ray 07/21/25 20:44 IMPRESSION: No acute infiltrate or effusion. Laboratory Results WBC 5.98 10^3/uL (3.29-11.43) 07/21/25 21:03 RBC 4.42 10^6/uL (3.85-5.65) 07/21/25 21:03 Hgb 13.40 g/dL (11.27-16.99) 07/21/25 21:03 Hct 41.2 % (37-53) 07/21/25 21:03 MCV 93.2 fl (82-101) 07/21/25 21:03 MCH 30.3 pg (27-33) 07/21/25 21:03 MCHC 32.5 g/dL (30-55) 07/21/25 21:03 RDW 13.9 % (12.1-15.1) 07/21/25 21:03 Plt Count 115 10^3/cmm (157-399) L 07/21/25 21:03 MPV 11.5 fL (7.4-10.4) H 07/21/25 21:03 Neut % (Auto) 47.5 % 07/21/25 21:03 Lymph % (Auto) 40.1 % 07/21/25 21:03 Posey % (Auto) 9.0 % 07/21/25 21:03 Eos % (Auto) 1.7 % 07/21/25 21:03 Baso % (Auto) 1.2 % 07/21/25 21:03 Neut # (Auto) 2.84 10^3/uL (1.8-7.7) 07/21/25 21:03 Lymph # (Auto) 2.4 10^3/uL (0.8-4.8) 07/21/25 21:03 Posey # (Auto) 0.5 10^3/uL (0.2-0.9) 07/21/25 21:03 Eos # (Auto) 0.1 10^3/uL (0.0-0.8) 07/21/25 21:03 Baso # (Auto) 0.1 10^3/uL (0.0-0.1) 07/21/25 21:03 Nucleated RBC % (auto) 0 % 07/21/25 21:03 Nucleated RBCs # 0.0 /100WBC 07/21/25 21:03 Sodium 133 mmol/L (136-145) L 07/21/25 21:03 Potassium 3.4 mmol/L (3.5-5.1) L 07/21/25 21:03 Chloride 98 mmol/L (98-107) 07/21/25 21:03 Carbon Dioxide 23 mmol/L (22-29) 07/21/25 21:03 Anion Gap 15.4 (5-19) 07/21/25 21:03 BUN 12 mg/dL (8-23) 07/21/25 21:03 Creatinine 1.2 mg/dL (0.7-1.2) 07/21/25 21:03 GFR Calculation Not Reportable 07/21/25 21:03 Glucose 99 mg/dL (65-115) 07/21/25 21:03 Calculated Osmolality 276 mOsm/kg (285-295) L 07/21/25 21:03 Calcium 8.8 mg/dL (8.5-10.5) 07/21/25 21:03 Phosphorus 2.8 mg/dL (2.5-4.5) 07/21/25 21:03 Magnesium 2.0 mg/dL (1.7-2.3) 07/21/25 21:03 Total Bilirubin 0.8 mg/dL (0.15-1.2) 07/21/25 21:03 AST 18 U/L (0-40) 07/21/25 21:03 ALT 6 U/L (0-41) 07/21/25 21:03 Alkaline Phosphatase 58 U/L (40-130) 07/21/25 21:03 Total Protein 6.9 g/dL (6.6-8.7) 07/21/25 21:03 Albumin 3.3 g/dL (3.5-5.2) L 07/21/25 21:03 Globulin 3.6 g/dL (1.3-4.6) 07/21/25 21:03 Urine Color Yellow (Yellow) 07/21/25 21:40 Urine Appearance Cloudy (CLEAR) A 07/21/25 21:40 Urine pH 5.5 (5-7) 07/21/25 21:40 Ur Specific [place] 1.005 (1.005-1.030) 07/21/25 21:40 Urine Protein Trace (Negative) A 07/21/25 21:40 Urine Glucose (UA) Negative (Normal) 07/21/25 21:40 Urine Ketones Negative (Negative) 07/21/25 21:40 Urine Blood 3+ (Negative) A 07/21/25 21:40 Urine Nitrate Negative (Negative) 07/21/25 21:40 Urine Bilirubin Negative (Negative) 07/21/25 21:40 Urine Urobilinogen 0.2 mg/dL (Negative) 07/21/25 21:40 Ur Leukocyte Esterase 3+ (Negative) A 07/21/25 21:40 Urine RBC 21-50 /hpf (0-2) H 07/21/25 21:40 Urine WBC >100 /hpf (0-5) H 07/21/25 21:40 Ur Squamous Epith Cells 0-5 /hpf (0-5) 07/21/25 21:40 Amorphous Sediment Not Reportable 07/21/25 21:40 Urine Bacteria 1+ /hpf (NONE) H 07/21/25 21:40 Hyaline Casts 3.30 /lpf 07/21/25 21:40 Urine Opiates Screen Positive ng/mL (Negative) H 07/21/25 21:40 Ur Barbiturates Screen Negative ng/mL (Negative) 07/21/25 21:40 Ur Phencyclidine Scrn Negative ng/mL (Negative) 07/21/25 21:40 Ur Amphetamines Screen Negative ng/mL (Negative) 07/21/25 21:40 U Benzodiazepines Scrn Negative ng/mL (Negative) 07/21/25 21:40 Urine Cocaine Screen Negative ng/mL (Negative) 07/21/25 21:40 U Marijuana (THC) Screen Negative ng/mL (Negative) 07/21/25 21:40 Ethyl Alcohol 71 mg/dL (0-10) H 07/21/25 21:03 All radiology interpretation(s) finalized by discharge EKG Data EKG 1: Interpretation: Sinus rhythm, first-degree AV block, heart rate 62, left axis, no ST segment elevation, isolated PVC Discharge Plan Discharge Patient Disposition: Admitted As Inpatient Admit Provider: Efrain Villalobos Clinical Impression: Closed intertrochanteric fracture of left femur Condition: Stable Discharge Activity: Limit activity as instructed Coding Level of Care Code ED [employer] Base Assembler for Chg Fwd Documented by User: Erick Marks Jeremías, 07/22/25 00:22 HPI - Fall General: Chief Complaint: Fall Stated Complaint: ETOH/FALL Time Seen by Provider: 07/21/25 20:34 Related Data Home Medications ?Medication ?Instructions ?Recorded ?Confirmed cholecalciferol (vitamin D3) 50 50 mcg PO DAILY 09/27/23 09/27/23 mcg (2,000 unit) capsule (Vitamin D3) multivitamin 1 tab PO QAM 09/27/23 09/27/23 tamsulosin 0.4 mg capsule 0.4 mg PO QAM 09/27/23 09/27/23 vitamin B complex 1 tab PO DAILY 09/27/23 09/27/23 Previous Rx's ?Medication ?Instructions ?Recorded acetaminophen 500 mg tablet 650 mg (1.3 x 500 mg) PO Q8H PRN 04/30/22 pain #0 tabs Allergies Allergy/AdvReac Type Severity Reaction Status Date / Time aspirin Allergy ALGY-Anaphy Verified 05/17/24 15:53 laxis naproxen (From Anaprox) Allergy ALGY-Hives Verified 05/17/24 15:53 Sulfa (Sulfonamide Allergy ALGY-Difficulty Verified 05/17/24 15:53 Antibiotics) Swallowing PFSH ED PFSH: Medical History (Updated 07/21/25 @ 23:12 by Efrain Villalobos MD) Alcoholism, chronic BPH w urinary obs/LUTS No pertinent past medical history Social History (Updated 07/21/25 @ 23:09 by Efrain Villalobos MD) Smoking and tobacco/nicotine status: current every day tobacco/nicotine user cigarettes Years cigarettes smoked: 73 Alcohol intake: current Alcohol intake frequency: few times a week Alcohol use comment: 3 beers once or twice a week per patient's report but today he drank 6 Substance/Drug Use: former Former substance use details: Remote history of weed use no other drugs Additional social history: Patient wants DO NOT RESUSCITATE status is discussed with Efrain Villalobos MD on 07/21/2025 Current occupational status: retired Previous occupational history: 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 He has pain directly on his left hip. This occurred just prior to arrival. He does not have any other complaints. On physical examination, he has had an entire bone survey, that does not show any tenderness. He is not on any anticoagulation. He does not have any complaints at time of my evaluation other than his left hip. Discussed with Dr. Garcia when intertrochanteric fracture was noted on the left side, that will accept consultation. Awaiting call from Dr. Villalobos for hospitalist admission. Patient was originally seen by Ms. Francisco J PA-C. I agree with her history, evaluation, and management. I spoke with the hospitalist regarding admission, and he agrees. Admission orders are written. Lab Data 07/21/25 21:03 07/21/25 21:03 Radiology Impressions Hip/Pelvis X-Ray 07/21/25 20:38 IMPRESSION: Comminuted left intertrochanteric fracture, apex lateral angulation. Chest X-Ray 07/21/25 20:44 IMPRESSION: No acute infiltrate or effusion. Laboratory Results WBC 5.98 10^3/uL (3.29-11.43) 07/21/25 21:03 RBC 4.42 10^6/uL (3.85-5.65) 07/21/25 21:03 Hgb 13.40 g/dL (11.27-16.99) 07/21/25 21:03 Hct 41.2 % (37-53) 07/21/25 21:03 MCV 93.2 fl (82-101) 07/21/25 21:03 MCH 30.3 pg (27-33) 07/21/25 21:03 MCHC 32.5 g/dL (30-55) 07/21/25 21:03 RDW 13.9 % (12.1-15.1) 07/21/25 21:03 Plt Count 115 10^3/cmm (157-399) L 07/21/25 21:03 MPV 11.5 fL (7.4-10.4) H 07/21/25 21:03 Neut % (Auto) 47.5 % 07/21/25 21:03 Lymph % (Auto) 40.1 % 07/21/25 21:03 Posey % (Auto) 9.0 % 07/21/25 21:03 Eos % (Auto) 1.7 % 07/21/25 21:03 Baso % (Auto) 1.2 % 07/21/25 21:03 Neut # (Auto) 2.84 10^3/uL (1.8-7.7) 07/21/25 21:03 Lymph # (Auto) 2.4 10^3/uL (0.8-4.8) 07/21/25 21:03 Posey # (Auto) 0.5 10^3/uL (0.2-0.9) 07/21/25 21:03 Eos # (Auto) 0.1 10^3/uL (0.0-0.8) 07/21/25 21:03 Baso # (Auto) 0.1 10^3/uL (0.0-0.1) 07/21/25 21:03 Nucleated RBC % (auto) 0 % 07/21/25 21:03 Nucleated RBCs # 0.0 /100WBC 07/21/25 21:03 Sodium 133 mmol/L (136-145) L 07/21/25 21:03 Potassium 3.4 mmol/L (3.5-5.1) L 07/21/25 21:03 Chloride 98 mmol/L (98-107) 07/21/25 21:03 Carbon Dioxide 23 mmol/L (22-29) 07/21/25 21:03 Anion Gap 15.4 (5-19) 07/21/25 21:03 BUN 12 mg/dL (8-23) 07/21/25 21:03 Creatinine 1.2 mg/dL (0.7-1.2) 07/21/25 21:03 GFR Calculation Not Reportable 07/21/25 21:03 Glucose 99 mg/dL (65-115) 07/21/25 21:03 Calculated Osmolality 276 mOsm/kg (285-295) L 07/21/25 21:03 Calcium 8.8 mg/dL (8.5-10.5) 07/21/25 21:03 Phosphorus 2.8 mg/dL (2.5-4.5) 07/21/25 21:03 Magnesium 2.0 mg/dL (1.7-2.3) 07/21/25 21:03 Total Bilirubin 0.8 mg/dL (0.15-1.2) 07/21/25 21:03 AST 18 U/L (0-40) 07/21/25 21:03 ALT 6 U/L (0-41) 07/21/25 21:03 Alkaline Phosphatase 58 U/L (40-130) 07/21/25 21:03 Total Protein 6.9 g/dL (6.6-8.7) 07/21/25 21: Albumin 3.3 g/dL (3.5-5.2) L 07/21/25 21:03 Globulin 3.6 g/dL (1.3-4.6) 07/21/25 21:03 Urine Color Yellow (Yellow) 07/21/25 21:40 Urine Appearance Cloudy (CLEAR) A 07/21/25 21:40 Urine pH 5.5 (5-7) 07/21/25 21:40 Ur Specific [place] 1.005 (1.005-1.030) 07/21/25 21:40 Urine Protein Trace (Negative) A 07/21/25 21:40 Urine Glucose (UA) Negative (Normal) 07/21/25 21:40 Urine Ketones Negative (Negative) 07/21/25 21:40 Urine Blood 3+ (Negative) A 07/21/25 21:40 Urine Nitrate Negative (Negative) 07/21/25 21:40 Urine Bilirubin Negative (Negative) 07/21/25 21:40 Urine Urobilinogen 0.2 mg/dL (Negative) 07/21/25 21:40 Ur Leukocyte Esterase 3+ (Negative) A 07/21/25 21:40 Urine RBC 21-50 /hpf (0-2) H 07/21/25 21:40 Urine WBC >100 /hpf (0-5) H 07/21/25 21:40 Ur Squamous Epith Cells 0-5 /hpf (0-5) 07/21/25 21:40 Amorphous Sediment Not Reportable 07/21/25 21:40 Urine Bacteria 1+ /hpf (NONE) H 07/21/25 21:40 Hyaline Casts 3.30 /lpf 07/21/25 21:40 Urine Opiates Screen Positive ng/mL (Negative) H 07/21/25 21:40 Ur Barbiturates Screen Negative ng/mL (Negative) 07/21/25 21:40 Ur Phencyclidine Scrn Negative ng/mL (Negative) 07/21/25 21:40 Ur Amphetamines Screen Negative ng/mL (Negative) 07/21/25 21:40 U Benzodiazepines Scrn Negative ng/mL (Negative) 07/21/25 21:40 Urine Cocaine Screen Negative ng/mL (Negative) 07/21/25 21:40 U Marijuana (THC) Screen Negative ng/mL (Negative) 07/21/25 21:40 Ethyl Alcohol 71 mg/dL (0-10) H 07/21/25 21:03 Discharge Plan Discharge Patient Disposition: Admitted As Inpatient Admit Provider: Efrain Villalobos Clinical Impression: Closed intertrochanteric fracture of left femur Condition: Stable Discharge Activity: Limit activity as instructed Coding Level of Care Code ED [employer] Assembler for Carlin Garcia
--- NOTE | 2025-07-21 20:54 | ECG_ITS ---
[facility]: 2025[facility]21 Pat Name: George William Department: Room: Gender: Male Private Branch Exchange Service Advisor: : 1940 Requested By: Alyse Marx Order Number: [id number] Ismael MD: Don Stover M.D. Measurements Intervals [place] Rate: 62 P: -9 AL: 189 QRS: -37 QRSD: 116 T: 21 QT: 462 QTc: 471 Interpretive Statements SINUS RHYTHM WITH OCCASIONAL VENTRICULAR PREMATURE COMPLEXES LEFT AXIS DEVIATION [QRS AXIS < -30] MODERATE INTRAVENTRICULAR CONDUCTION DELAY [110+ ms QRS DURATION] NONSPECIFIC T-WAVE ABNORMALITY PROLONGED QT INTERVAL Compared to ECG 05/17/2024 18:17:11 Left-axis deviation now present Prolonged QT interval now present T-wave abnormality still present Electronically Signed On 07-22-2025 19:48:08 JET DYEING MACHINE OPERATOR by Don Stover M.D. [email or web address]
[2025-07-21] MEDS: morphine 4 mg/mL SDV 1 mL IVP (21:01)
[2025-07-21] MEDS: ondansetron 2 mg/ML SDV 2 mL 4 MG IVP (21:01)
[2025-07-21 21:09] LABS: Hematocrit 41.2 % (37-53); Hemoglobin 13.40 g/dL (11.27-16.99); Mean Corpuscular HGB Conc 32.5 g/dL (30-55); Mean Corpuscular Hemoglobin 30.3 pg (27-33); Mean Corpuscular Volume 93.2 fl (82-101); Nucleated Red Blood Cells % 0 %; Platelet Count 115 10^3/cmm (157-399); Red Blood Count 4.42 10^6/uL (3.85-5.65); White Blood Count 5.98 10^3/uL (3.29-11.43)
[2025-07-21 21:28] LABS: Alanine Aminotransferase 6 U/L (0-41); Albumin Level 3.3 g/dL (3.5-5.2); Alkaline Phosphatase 58 U/L (40-130); Anion Gap 15.4 (5-19); Aspartate Amino Transferase 18 U/L (0-40); Blood Urea Nitrogen 12 mg/dL (8-23); Calcium 8.8 mg/dL (8.5-10.5); Carbon Dioxide 23 mmol/L (22-29); Chloride 98 mmol/L (98-107); Globulin 3.6 g/dL (1.3-4.6); Glucose 99 mg/dL (65-115); Osmolality Calculated 276 mOsm/kg (285-295); Potassium 3.4 mmol/L (3.5-5.1); Sodium 133 mmol/L (136-145); Total Protein 6.9 g/dL (6.6-8.7)
[2025-07-21 21:52] LABS: Glucose Urine UA Negative (Normal); Nitrate Urine Negative (Negative); Specific Gravity, Urine 1.005 (1.005-1.030)
[2025-07-21 21:56] LABS: Add Urine Microscopic? YES; Universal Test for UA Present (0)
[2025-07-21 22:23] LABS: PCP Screen Urine Negative (Negative)
[2025-07-21 22:25] LABS: Alcohol Level 71 mg/dL (0-10); Magnesium 2.0 mg/dL (1.7-2.3)
--- NOTE | 2025-07-21 22:42 | PM.HP ---
Providers/Chief Complaint Admitting Physician: Efrain Villalobos MD Primary Care Provider: Riddhi Vasquez MD Chief Complaint: ETOH/FALL History of Present Illness George William is a 84 year old male with history of alcoholism brought in after fall and left femoral neck fracture. He states he had 5 or 6 beers and typically tries to stop at 3 beers. He had taken the cab home and gotten out to go up the stairs to his apartment when he tangled his feet and fell. He could not get up due to the pain so ambulance was called. Patient is good historian Patient was admitted 2021 with rib fractures from a fall and then in 2023 he had a fall seen in the emergency department and had stitches also related to drinking. Patient states he decided at that time that drinking was his problem. He had been drinking 10-12 beers a day and he cut down to what he says is usually three 1 day a week. He was drinking at [employer] today and socializing. States he should have stopped it 3 beers. Patient states he lives alone with his dog. He does not use drugs or smoke weed. He smokes 2 packs of cigarettes every 3 days and states he smoked since he was 11 years old. His next of kin is not family because he is estranged from his younger sister and brother. His POA is Tato Hughes. Patient wants DNR status Dad of motor vehicle accident mom with heart flutter but his family did not tell him that she until a week after she had and he was estranged from the family. Tells me that his sister who is 1.5 years younger than him of diabetes obesity greater than 500 pounds after leg amputations and also family did notify him. It does seem that he was not in touch with his family personally. Patient has no children reports he moved to [place] for his third . 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 he now lives alone except for him and his dog. He has power of district attorney and executor of will Tato Hughes. Review of Systems Narrative: General No fevers sweats he states he is cold all the time but that is from the weather Cardiovascular no chest pain palpitations or edema Respiratory no shortness of breath or wheezing but he does have coughing nonproductive GI no nausea vomiting diarrhea constipation positive for dysuria hesitancy dribbling nocturia 2 times a night. He states he is on Flomax capsule as well as some little blue pill but does not recognize Viagra as the name Neuro no seizures strokes limb weakness Psych no homicidal suicidal or depressive illness Medications/Allergies Home Medications ?Medication ?Instructions ?Recorded ?Confirmed ?Last Taken ?Type acetaminophen 500 mg tablet 650 mg (1.3 x 500 mg) PO Q8H PRN 04/30/22 09/27/23 Unknown Rx pain #0 tabs cholecalciferol (vitamin D3) 50 50 mcg PO DAILY 09/27/23 09/27/23 09/27/23 History mcg (2,000 unit) capsule (Vitamin D3) multivitamin 1 tab PO QAM 09/27/23 09/27/23 09/27/23 History tamsulosin 0.4 mg capsule 0.4 mg PO QAM 09/27/23 09/27/23 09/27/23 History vitamin B complex 1 tab PO DAILY 09/27/23 09/27/23 09/27/23 History Allergies Allergy/AdvReac Type Severity Reaction Status Date / Time aspirin Allergy ALGY-Anaphy Verified 05/17/24 15:53 laxis naproxen (From Anaprox) Allergy ALGY-Hives Verified 05/17/24 15:53 Sulfa (Sulfonamide Allergy ALGY-Difficulty Verified 05/17/24 15:53 Antibiotics) Swallowing PFSH Acute PFSH: Medical History (Updated 07/21/25 @ 23:12 by Efrain Villalobos MD) Alcoholism, chronic BPH w urinary obs/LUTS No pertinent past medical history Social History (Updated 07/21/25 @ 23:09 by Efrain Villalobos MD) Smoking and tobacco/nicotine status: current every day tobacco/nicotine user cigarettes Years cigarettes smoked: 73 Alcohol intake: current Alcohol intake frequency: few times a week Alcohol use comment: 3 beers once or twice a week per patient's report but today he drank 6 Substance/Drug Use: former Former substance use details: Remote history of weed use no other drugs Additional social history: Patient wants DO NOT RESUSCITATE status is discussed with Efrain Villalobos MD on 07/21/2025 Current occupational status: retired Previous occupational history: 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 Vitals/I&O/Wt Last Vital Signs Temp 97.8 F 07/21/25 20:28 Pulse 69 07/21/25 22:00 Resp 16 07/21/25 22:00 BP 136/79 07/21/25 22:00 Pulse Ox 93 07/21/25 22:00 O2 Del Method Room Air 07/21/25 21:03 07/21/25 07/21/25 07/21/25 06:59 14:59 22:59 Intake Total 0 / 0 Balance 0 / 0 Weight last 48 hrs Weight 68.674 kg Physical Exam Narrative: General well-developed well-nourished male in no acute cardiopulmonary stress Oropharynx he has upper dentures supine could not get accurate Mallampati score but supine is 4 CV regular rate and rhythm no loud murmurs Lungs clear to auscultation bilaterally moderate air movement no wheezes Abdomen positive bowel tones soft nontender Calves trace pretibial edema bilaterally Extremities left leg is shortened and externally rotated. Dorsal pedal pulses 2+ right 1+ left gross sensation intact Skin warm and dry Mentation alert and oriented x 3 Urinary Catheter Management: Manrique: Cath Placed During This Visit: yes Urinary Catheter Date of Insertion: 07/21/25 Urinary Catheter Time of Insertion: 21:00 Data 07/21/25 21:03 07/21/25 21:03 A&P Assessment and plan 1. Closed intertrochanteric fracture of left femur: Patient is n.p.o. for tomorrow with Dr. Garcia. He is cleared for surgery by me for surgery 2. BPH w urinary obs/LUTS: Continue Flomax Manrique catheter placed due to prolonged immobilization 3. Alcoholism, chronic: Start thiamine. Sounds like the patient is limited his drinking to 3 beers twice a week so probably will not withdrawal. Monitor for any signs of withdrawal and order CIWA if that occurs PDMP PDMP Reviewed: Not Reviewed Attestations Medical Necessity Statement*: Patient is admitted inpatient and will require greater than 2 midnights for his left hip fracture Coding Level of Care Code 71839 Diagnoses Closed intertrochanteric fracture of left femur S72.142A BPH w urinary obs/LUTS N40.1; N13.8 Alcoholism, chronic F10.20 Time Spent (min) 76
[2025-07-21] MEDS: heparin 5,000 unit/mL INJ 1 mL 5000 UNIT SUBCUT (23:42)
[2025-07-21] MEDS: oxyCODONE 5 mg IR Tab/Cap PO (23:42)
[2025-07-21] MEDS: sodium chlor 0.9% + KCl 20 mEq 20 MEQ/1,000 ML BAG 100 MEQ IV (23:46)
[2025-07-22] VITALS (25 sets, daily range): BP systolic 85–142; BP diastolic 53–92; PULSE 62–101; RESP 16–26; TEMP 36.3–37; O2SAT 90–98
--- NOTE | 2025-07-22 07:37 | P.PN_ITS ---
Subjective 2 Subjective: Patient is a very pleasant 84-year-old male seen and examined at bedside on hospital rounds today. Patient is status post open reduction with internal fixation of left hip with earlier this mornng. Patient is sitting up in bed stating mild left hip pain but denies any other symptoms currently. Spoke with patient about his history of alcohol use, he states that he has never had withdrawal symptoms and can go 1 to 2 weeks without needing to drink alcohol. Patient states that he smokes almost 1 pack/day, advised patient complete and total cessation of smoking and did provide nicotine patch for him. Due to staffing, it is questionable if the patient will have physical therapy evaluation this weekend it may be delayed until Thursday, discharge planning will be based off of PT/OT evaluation recommendations. We will continue good pain control and encourage use of incentive spirometer, and order good bowel regimen to prevent constipation with inpatient interventions. All questions and concerns addressed with the patient at bedside today. Vitals/I&O/Wt Last Vital Signs Temp 98.0 F 07/22/25 05:00 Pulse 101 H 07/22/25 06:00 Resp 16 07/22/25 05:00 BP 121/78 07/22/25 05:00 Pulse Ox 91 07/22/25 05:00 O2 Del Method Room Air 07/22/25 00:47 07/21/25 07/22/25 07/22/25 22:59 06:59 14:59 Intake Total 0 / 0 240 / 240 Output Total 260 / 260 Balance 0 / 0 -20 / -20 Weight last 48 hrs Weight 68.039 kg Weight 67.086 kg Weight 68.674 kg Physical Exam 2 Narrative: General well-developed well-nourished male in no acute cardiopulmonary stress Oropharynx clear he has upper dentures CV regular rate and rhythm no loud murmurs Lungs clear to auscultation bilaterally moderate air movement no wheezes Abdomen positive bowel tones soft nontender Calves trace pretibial edema bilaterally Extremities left leg tenderness, surgical dressing in place with scant sanguinous drainage is noted, dorsal pedal pulses 2+ Skin warm and dry, surgical incision covered with dressing Mentation alert and oriented x 3 Urinary Catheter Management: Manrique: Cath Placed During This Visit: yes Reason for Continuing Indwelling Catheter: Perioperative Use in Selected Surgeries Urinary Catheter Date of Insertion: 07/21/25 Urinary Catheter Time of Insertion: 21:00 Data 12/12/25 21:03 07/21/25 21:03 A&P Assessment and plan 1. Closed intertrochanteric fracture of left femur: 2. BPH w urinary obs/LUTS: 3. Alcoholism, chronic: 4. Acute UTI: 5. Tobacco use disorder: Plan: Comminuted left intratrochanteric fracture Fall - Ground level fall - S/p ORIF of left hip with 07/22 - Encourage use of incentive spirometry - Multi-modal pain control - Pending PT/OT interventions and recommendations BPH - Continue home medication tamsulosin 0.4mg Daily Alcoholism - Cessation advised - Monitor for s/s of withdrawal and initiate CIWA protocols - Daily Thiamine 100mg and Folic acid 1mg Tobacco Use disorder - Smokes approx 1PPD - Cessation advised - PRN nicotine patch Acute UTI, POA - Pending Urine Culture - 1g IV Rocephin Daily - De-escalate antibiotics as appropriate DVT PPX: heparin GI PPX: Pepcid Code Status: Allow Natural PDMP PDMP Reviewed: Not Reviewed Attestations 2 Medical Necessity Statement*: Patient is admitted inpatient and will require greater than 2 midnights for his left hip fracture and management of co-morbidities. Coding Level of Care Code 74429 Diagnoses Closed intertrochanteric fracture of left femur S72.142A BPH w urinary obs/LUTS N40.1; N13.8 Alcoholism, chronic F10.20 Acute UTI N39.0 Tobacco use disorder F17.200
--- NOTE | 2025-07-22 08:00 | PC.NURSE ---
Patient taken to surgery pre-op at 0740.
--- NOTE | 2025-07-22 08:00 | PC.PHAR ---
Addendum entered by Janett Sumner 07/22/25 08:10: [facility] [place] [facility]ts[facility] medication list. 07/22/25 Original Note: Pts' medications are all otc items except Tamsulosin 0.4mg daily but it was last updated in 2023. No other medications found.
--- NOTE | 2025-07-22 08:11 | P.ANESASSM_ITS ---
Pre-Anesthetic Assessment Height/Weight: Height 5 ft 5 in Weight 150 lb Temp Pulse Resp BP Pulse Ox O2 Del Method 97.4 F L 72 18 119/77 93 Room Air 07/22/25 07:46 07/22/25 07:46 07/22/25 07:46 07/22/25 07:46 07/22/25 07:46 07/22/25 07:46 Preop Diagnosis: Hip fracture Operation Date: 07/22/25 09:20 Proposed Procedures p ORIF Femur(Left) - Reyes Garcia MD Was Beta Shannon taken within 24 hours: N/A Was Clonidine taken within 24 hours: N/A Last intake: Intake Last Liquid Date 07/22/25 Last Liquid Time 00:00 Last Solid Date 07/21/25 Last Solid Time 19:00 Social Alcohol and Tobacco Almost 1 pack daily pack(s) per day Drinks 3 beers, twice a week Exam alert, oriented x 3 and regular rate & rhythm Airway Submandibular: within normal limits Cervical ROM: within normal limits Mallampati: Class III Comments: Comments: Edentulous Anesthetic Plan ASA status: 3 Anesthesia: General Other: Patient presented with femoral neck fracture yesterday after falling at a bar. Patient admits to 5-6 beers at that time Chronic alcoholism noted, used to be a heavy drinker but now tries to limit himself to 3 beers, twice a week BPH, has a aviles catheter currently Chronic smoker labs reviewed and acceptable for procedure plan for [place] Medications/Allergies Home Medications ?Medication ?Instructions ?Recorded ?Confirmed ?Last Taken ?Type acetaminophen 500 mg tablet 650 mg (1.3 x 500 mg) PO Q 8H PRN 04/30/22 07/22/25 Unknown Rx pain #0 tabs multivitamin 1 tab PO QAM 09/27/2309/27/23 History vitamin B complex 1 tab PO DAILY 09/27/2307/1009/27/23 History ergocalciferol (vitamin D2) 1,250 1,250 mcg PO Q7D 07/22/25 Unknown History mcg (50,000 unit) capsule (Vitamin D2) finasteride 5 mg tablet 5 mg PO DAILY 07/22/2507/22 Unknown History tamsulosin 0.4 mg capsule 0.4 mg PO BID 07/22/2507/22 Unknown History Allergies Allergy/AdvReac Type Severity Reaction Status Date / Time aspirin Allergy ALGY-Anaphy Verified 05/17/24 15:53 laxis naproxen (From Anaprox) Allergy ALGY-Hives Verified 05/17/24 15:53 Sulfa (Sulfonamide Allergy ALGY-Difficulty Verified 05/17/24 15:53 Antibiotics) Swallowing Current Medications Generic Name Dose Route Start Last Admin Trade Name Freq PRN Reason Stop Dose Admin Docusate Sodium 100 mg 07/22/25 05:00 07/22/25 01:23 Docusate Sodium 100 Mg Capsule PO Not Given BID [facility] Famotidine 20 mg 07/22/25 05:00 07/22/25 01:23 Famotidine 20 Mg Tablet PO Not Given BID [facility] Heparin Sodium (Porcine) 5,000 unit 07/21/25 22:30 07/21/25 23:42 Heparin 5,000 Unit/Ml Inj 1 Ml SUBCUT 5,000 unit Q12H STEVE Administration Potassium Chloride/Sodium Chloride 20 meq in 1,000 mls @ 100 mls/hr 07/21/25 23:30 07/21/25 23:46 Sodium Chlor 0.9% + Kcl 20 Meq IV 100 mls/hr .Q10H STEVE Administration Multivitamins 1 each 07/22/25 05:00 07/22/25 01:22 N-Iwunntd-Wrryqjb C Tablet PO Not Given DAILY [facility] Multivitamins Therapeutic 1 tab 07/22/25 05:00 07/22/25 01:23 Multivitamin Therapeutic Tablet PO Not Given DAILY [facility] Oxycodone HCl 5 mg 07/21/25 22:27 07/21/25 23:42 Oxycodone 5 Mg Ir Tab/Cap PO 5 mg Q6H PRN Administration SEVERE PAIN Tamsulosin HCl 0.4 mg 07/22/25 05:00 07/22/25 01:23 Tamsulosin 0.4 Mg Capsule PO Not Given QAM [facility] Thiamine Mononitrate 100 mg 07/22/25 05:00 07/22/25 01:23 Thiamine 100 Mg Tablet PO Not Given DAILY [facility] Vitamin D 2,000 unit 07/22/25 05:00 07/22/25 01:23 Cholecalciferol (Vitamin D3) 1,000 Unit Tablet PO Not Given DAILY [facility] Anesthesia Medical History (Updated 07/22/25 @ 08:27 by Reyes Garcia MD) Alcoholism, chronic BPH w urinary obs/LUTS No pertinent past medical history Social History (Updated 07/21/25 @ 23:09 by Efrain Villalobos MD) Smoking and tobacco/nicotine status: current every day tobacco/nicotine user cigarettes Years cigarettes smoked: 73 Alcohol intake: current Alcohol intake frequency: few times a week Alcohol use comment: 3 beers once or twice a week per patient's report but today he drank 6 Substance/Drug Use: former Former substance use details: Remote history of weed use no other drugs Additional social history: Patient wants DO NOT RESUSCITATE status is discussed with Efrain Villalobos MD on 07/21/2025 Current occupational status: retired Previous occupational history: 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 Data Anesthesia 07/21/25 21:03 07/21/25 21:03 Short CBC 07/21/25 Range/Units 21:03 WBC 5.98 (3.29-11.43) 10^3/uL Hgb 13.40 (11.27-16.99) g/dL Hct 41.2 (37-53) % MCV 93.2 (82-101) fl Plt Count 115 L (157-399) 10^3/cmm Neut % (Auto) 47.5 % Neut # (Auto) 2.84 (1.8-7.7) 10^3/uL BMP 07/21/25 21:03 Sodium 133 L Potassium 3.4 L Chloride 98 Carbon Dioxide 23 BUN 12 Creatinine 1.2 Glucose 99 Calcium 8.8 Liver Function 07/21/25 Range/Units 21:03 Total Bilirubin 0.8 (0.15-1.2) mg/dL AST 18 (0-40) U/L ALT 6 (0-41) U/L Alkaline Phosphatase 58 (40-130) U/L Albumin 3.3 L (3.5-5.2) g/dL Urine 07/21/25 Range/Units 21:40 Urine Color Yellow (Yellow) Urine Appearance Cloudy A (CLEAR) Urine pH 5.5 (5-7) Ur Specific [place] 1.005 (1.005-1.030) Urine Protein Trace A (Negative) Urine Glucose (UA) Negative (Normal) Urine Ketones Negative (Negative) Urine Nitrate Negative (Negative) Urine Bilirubin Negative (Negative) Ur Leukocyte Esterase 3+ A (Negative) Urine RBC 21-50 H (0-2) /hpf Urine WBC >100 H (0-5) /hpf
--- NOTE | 2025-07-22 08:26 | PM.CONSULT ---
Providers/Reason For Consult Consulting Physician/Specialty*: Reyes Garcia MD/orthopedic surgery Reason for Consult*: Left intertrochanteric hip fracture Attending Physician: Alyse Gonzalez NP Primary Care Provider: Riddhi Vasquez MD History of Present Illness History of Present Illness George William is a 84 year old male Review of Systems General: Reports: 10 or more systems reviewed and unremarkable except in HPI and below Narrative: General No fevers sweats he states he is cold all the time but that is from the weather Cardiovascular no chest pain palpitations or edema Respiratory no shortness of breath or wheezing but he does have coughing nonproductive GI no nausea vomiting diarrhea constipation positive for dysuria hesitancy dribbling nocturia 2 times a night. He states he is on Flomax capsule as well as some little blue pill but does not recognize Viagra as the name Neuro no seizures strokes limb weakness Psych no homicidal suicidal or depressive illness Const: Denies: fever(s) or chills ENMT: Denies: throat pain or mouth pain Card: Denies: chest pain or palpitations Resp: Denies: dyspnea or non-productive cough GI: Denies: abdominal pain, nausea or vomiting Musc: Reports: extremity pain, joint pain, joint swelling, joint redness, joint stiffness, limited range of motion and muscle cramps; Denies: neck pain or back pain Neuro: Denies: headache(s) or numbness in extremities Medications/Allergies Home Medications ?Medication ?Instructions ?Recorded ?Confirmed ?Last Taken ?Type acetaminophen 500 mg tablet 650 mg (1.3 x 500 mg) PO Q8H PRN 04/30/22 07/22/25 Unknown Rx pain #0 tabs multivitamin 1 tab PO QAM 09/27/23 07/22/25 09/27/23 History vitamin B complex 1 tab PO DAILY 09/27/23 07/22/25 09/27/23 History ergocalciferol (vitamin D2) 1,250 1,250 mcg PO Q7D 07/22/25 07/22/25 Unknown History mcg (50,000 unit) capsule (Vitamin D2) finasteride 5 mg tablet 5 mg PO DAILY 07/22/25 07/22/25 Unknown History tamsulosin 0.4 mg capsule 0.4 mg PO BID 07/22/25 07/22/25 Unknown History Allergies Allergy/AdvReac Type Severity Reaction Status Date / Time aspirin Allergy ALGY-Anaphy Verified 05/17/24 15:53 laxis naproxen (From Anaprox) Allergy ALGY-Hives Verified 05/17/24 15:53 Sulfa (Sulfonamide Allergy ALGY-Difficulty Verified 05/17/24 15:53 Antibiotics) Swallowing Current Medications Generic Name Dose Route Start Last Admin Trade Name Freq PRN Reason Stop Dose Admin Docusate Sodium 100 mg 07/22/25 05:00 07/22/25 01:23 Docusate Sodium 100 Mg Capsule PO Not Given BID STEVE Famotidine 20 mg 07/22/25 05:00 07/22/25 01:23 Famotidine 20 Mg Tablet PO Not Given BID [facility] Heparin Sodium (Porcine) 5,000 unit 07/21/25 22:30 07/21/25 23:42 Heparin 5,000 Unit/Ml Inj 1 Ml SUBCUT 5,000 unit Q12H STEVE Administration Potassium Chloride/Sodium Chloride 20 meq in 1,000 mls @ 100 mls/hr 07/21/25 23:30 07/21/25 23:46 Sodium Chlor 0.9% + Kcl 20 Meq IV 100 mls/hr .Q10H STEVE Administration Multivitamins 1 each 07/22/25 05:00 07/22/25 01:22 J-Lodfgpx-Ypmsdhi C Tablet PO Not Given DAILY [facility] Multivitamins Therapeutic 1 tab 07/22/25 05:00 07/22/25 01:23 Multivitamin Therapeutic Tablet PO Not Given DAILY [facility] Oxycodone HCl 5 mg 07/21/25 22:27 07/21/25 23:42 Oxycodone 5 Mg Ir Tab/Cap PO 5 mg Q6H PRN Administration SEVERE PAIN Tamsulosin HCl 0.4 mg 07/22/25 05:00 07/22/25 01:23 Tamsulosin 0.4 Mg Capsule PO Not Given QAM [facility] Thiamine Mononitrate 100 mg 07/22/25 05:00 07/22/25 01:23 Thiamine 100 Mg Tablet PO Not Given DAILY [facility] Vitamin D 2,000 unit 07/22/25 05:00 07/22/25 01:23 Cholecalciferol (Vitamin D3) 1,000 Unit Tablet PO Not Given DAILY [facility] PFSH Acute PFSH: Medical History (Updated 07/22/25 @ 08:27 by Reyes Garcia MD) Alcoholism, chronic BPH w urinary obs/LUTS No pertinent past medical history Social History (Updated 07/21/25 @ 23:09 by Efrain Villalobos MD) Smoking and tobacco/nicotine status: current every day tobacco/nicotine user cigarettes Years cigarettes smoked: 73 Alcohol intake: current Alcohol intake frequency: few times a week Alcohol use comment: 3 beers once or twice a week per patient's report but today he drank 6 Substance/Drug Use: former Former substance use details: Remote history of weed use no other drugs Additional social history: Patient wants DO NOT RESUSCITATE status is discussed with Efrain Villalobos MD on 07/21/2025 Current occupational status: retired 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 He is sleeping comfortably. He awakens easily. He has tenderness and pain about the left hip. He has some mild swelling in the area. No ecchymosis. He has pain with any motion of his left lower extremity. He appears to be neurovasc intact distally. Skin is clear Urinary Catheter Management: Manrique: Cath Placed During This Visit: yes Reason for Continuing Indwelling Catheter: Perioperative Use in Selected Surgeries Urinary Catheter Date of Insertion: 07/21/25 Urinary Catheter Time of Insertion: 21:00 Data 07/21/25 21:03 07/21/25 21:03 A&P Assessment and plan 1. Closed displaced intertrochanteric fracture of left femur, initial encounter: Patient has left intertrochanteric hip fracture. This will require surgical intervention. After orthopedic evaluation review of the x-rays he has been offered open reduction internal fixation of left hip fracture. All risk benefits and treatment alternatives discussed he is agreeable to this at this time. Plan: Plan at this time is surgical intervention for repair of left hip intertrochanteric hip fracture. PDMP PDMP Reviewed: Not Reviewed Coding Level of Care Code Acute Code for [facility] Fwd Diagnoses Closed displaced intertrochanteric fracture of left femur, initial encounter S72.142A Encounter type: initial encounter Fracture alignment: displaced
--- NOTE | 2025-07-22 08:45 | XR_ITS ---
WS: [id number] C-ARM RADIOGRAPHS LEFT HIP; 5 IMAGES HISTORY: LT HIP TFN; OR PICS COMPARISON: 07/21/2025 Intraoperative imaging during gamma nail and short intramedullary esau placement. Fracture in good position and alignment. XR/XR hip LT 2-3V wo/w pel* [id number] IMPRESSION: Intraoperative imaging during ORIF LEFT hip fracture. Fracture in good position and alignment by C-arm imaging.
[2025-07-22] MEDS: ceFAZolin 2,000 mg SDV 2000 MG IVP ×2 (09:04→17:27)
[2025-07-22] MEDS: tranexamic acid 1,000 mg/10mL SDV 1000 MG IV (09:40)
--- NOTE | 2025-07-22 10:54 | PM.OP ---
Operative Report Date of procedure: July 22, 2025 Surgeon: Reyes Garcia MD Procedure: Preoperative diagnosis: Intertrochanteric hip fracture left hip Postoperative diagnosis: Same Procedure: Open reduction with internal fixation of left hip fracture Surgeon: Reyes Garcia MD Anesthesia: General EBL: 300 cc Indications: George is a 84-year-old white male who was out having beers last night when he took a taxi home and once getting home he tripped and fell landing on his left hip. He had pain and instability and inability to bear weight. He was seen at [facility] as ER where x-rays demonstrate intertrochanteric hip fracture. Patient then admitted to the hospital service and orthopedic consultation was obtained. After evaluation of the x-rays and the patient is felt patient most benefit from open reduction internal fixation of the left hip fracture. All risk benefits treatment alternatives were discussed with the patient who is agreeable to this at this time. Procedure: After obtaining her consent patient was taken to the operating room in his hospital bed and general anesthetic administered. Once [place] was achieved patient was placed up in the fracture table with both legs in traction boots. Right leg was lowered out of the way left leg after gentle traction manipulation fracture was reduced and confirmed on fluoroscopic evaluation of both AP and lateral views. It was noted that there was a spike of medial bone broken away just below the lesser trochanter of the proximal femur. It also appeared that the proximal greater trochanter was divided in half longitudinally. Once good anesthesia was achieved and patient was positioned in the bed well left hip and thigh were prepped and draped usual fashion. After surgical timeout longitudinal incision was made along the lateral border of the greater trochanter exposing the proximal femur. Sharp dissect taken down to subcutaneous tissues and down through the IT band. Electrocautery was then used for hemostasis as well as further dissection. By digital palpation fracture was identified. It appeared to be nearly anatomically aligned. At this point a dulls mild cable was placed just inferior to the femoral neck around the proximal femur. This was once in place and confirmed under fluoroscopic evaluation was then tightened down compressing the fracture line between the diaphysis and the proximal femur. Adequate reduction been achieved. At this point starting awl was placed to the proximal tip of the greater trochanter driven on the end. Guide esau was placed on down the interventionally canal of the femur. Proximal femur was reamed. A size 10 short trochanteric nail was then placed down over the guidewire into the proximal femur and position is far down as possible. Drill guide for the lag screw was then placed through the outer guide to the lateral bone of the feet proximal femur. This is abutted up against the cable and therefore could not be lowered any further. Guidepin was placed through the near central region of the femoral neck. Lateral view demonstrated pin more towards the posterior aspect. Once adequate position was achieved this is sized to size 95 mm lag screw. This was then reamed down to a 95 mm depth. 95 mm lag screw was then placed on up through the esau into the femoral neck and head with good fixation. Fracture fragments were then compressed and locking screws applied superiorly down the internal aspect of the proximal trochanteric nail. Once locked in place attention was turned towards locking screw distally. Distal locking screw guide was placed through the external guide and a stab wound was placed on the lateral thigh at that level. Drilling was done from the lateral cortex to the medial cortex and appropriate length screw that being a size 40 mm bicortical screw was then placed through the screw drill tube and driven into the femur through the distal esau locking it in place. Interoperative fluoroscopy demonstrated adequate reduction and fixation of this fracture. Wound was then washed sterile irrigation. Deep fascial structure reapproximated 0 Vicryl [id number] sutures. Subcutaneous tissue reapproximated 0 Vicryl interrupted sutures. Skin was closed with skin sen. Wounds are clean and dry dressed with Xeroform gauze sterile gauze dressing and a large OpSite dressings over the wounds. Patient was then awakened transferred back to the recovery room in his hospital bed in stable condition.
--- NOTE | 2025-07-22 11:28 | PC.NURSE ---
1120 - pt arrived to room 271 with Mariann floor nurse at side - no distress noted in pt upon this nurse exiting care - 022LNC 92% - pulse 83 - 138/80 temp 98.3
[2025-07-22] MEDS: chlorhexidine gluconate 0.12% Btl 473 mL 30 ML MUCOUS MEM ×3 (12:40→22:28)
[2025-07-22] MEDS: heparin 5,000 unit/mL INJ 1 mL 5000 UNIT SUBCUT (12:40)
[2025-07-22] MEDS: sodium chlor 0.9% + KCl 20 mEq 20 MEQ/1,000 ML BAG 100 MEQ IV ×2 (12:48→22:30)
[2025-07-22] MEDS: sennosides-docusate Tablet 2 TAB PO (17:28)
[2025-07-22] MEDS: mupirocin oint 22 gm 1 APPLIC NASAL (17:29)
[2025-07-22] MEDS: HYDROcodone-acetaminophen 5-325 mg Tablet 1 TAB PO (21:21)
[2025-07-23] VITALS (8 sets, daily range): BP systolic 109–124; BP diastolic 60–81; PULSE 75–86; RESP 16–22; TEMP 36.6–36.7; O2SAT 96–99
[2025-07-23] MEDS: ceFAZolin 2,000 mg SDV 2000 MG IVP ×2 (00:19→08:54)
[2025-07-23] MEDS: chlorhexidine gluconate 0.12% Btl 473 mL 30 ML MUCOUS MEM ×3 (04:05→23:28)
[2025-07-23] MEDS: mupirocin oint 22 gm 1 APPLIC NASAL ×2 (04:09→18:06)
[2025-07-23] MEDS: b-complex-vitamin c Tablet 1 EACH PO (04:10)
[2025-07-23] MEDS: multivitamin therapeutic Tablet 1 TAB PO (04:11)
[2025-07-23] MEDS: sennosides-docusate Tablet 2 TAB PO (04:12)
[2025-07-23 04:25] LABS: Hematocrit 27.3 % (37-53); Hemoglobin 8.80 g/dL (11.27-16.99); Mean Corpuscular HGB Conc 32.2 g/dL (30-55); Mean Corpuscular Hemoglobin 30.9 pg (27-33); Mean Corpuscular Volume 95.8 fl (82-101); Nucleated Red Blood Cells % 0 %; Platelet Count 100 10^3/cmm (157-399); Red Blood Count 2.85 10^6/uL (3.85-5.65); White Blood Count 8.64 10^3/uL (3.29-11.43)
[2025-07-23 04:47] LABS: Anion Gap 12.3 (5-19); Blood Urea Nitrogen 18 mg/dL (8-23); Calcium 7.6 mg/dL (8.5-10.5); Carbon Dioxide 23 mmol/L (22-29); Chloride 108 mmol/L (98-107); Glucose 154 mg/dL (65-115); Osmolality Calculated 291 mOsm/kg (285-295); Potassium 5.3 mmol/L (3.5-5.1); Sodium 138 mmol/L (136-145)
--- NOTE | 2025-07-23 06:27 | PC.NURSE ---
Manrique catheter removed per provider orders without difficulty. Prior to removal, yellow urine noted in drainage bag. Upon removal, slight blood-tinged drainage observed to be leaking from urethral meatus. Patient tolerated procedure well and denied any pain or discomfort. No active bleeding noted after initial observation. Patient educated to report any increased bleeding, pain, or burning with urination, or inability to void, as well as importance of measuring the first void and watching for urinary retention. Call light in place, bed locked lowest position, SR up x2.
--- NOTE | 2025-07-23 07:49 | P.PN_ITS ---
Subjective 2 Subjective: Patient is a very pleasant 84-year-old male seen and examined at bedside on hospital rounds today. Patient sitting up in bed stating left hip pain and cough, denies new or worsening symptoms. Review of hemoglobin significant drop 8.80, we will continue to monitor closely. Patient has increased potassium 5.3, creatinine 1.5, BUN 18. Patient seems like he is mildly volume overloaded we will hold fluids at this time and repeat BMP this afternoon to monitor electrolytes and renal functions. Currently awaiting PT/OT recommendations, patient will most likely need SNF level of care at discharge. Greatly appreciate case management, will coordinate with them on discharge planning. Will also adhere to orthopedic surgeon instructions on weight bearing and discharge planning. Vitals/I&O/Wt Last Vital Signs Temp 98.1 F 07/23/25 05:00 Pulse 78 07/23/25 07:48 Resp 18 07/23/25 07:48 BP 117/75 07/23/25 05:00 Pulse Ox 99 07/23/25 07:48 O2 Del Method Nasal Cannula 07/23/25 07:48 O2 Flow Rate 2 07/23/25 07:48 07/22/25 07/23/25 07/23/25 22:59 06:59 14:59 Intake Total 1460 / 4400 440 / 4840 Output Total 400 / 1100 Balance 1460 / 3700 40 / 3740 Weight last 48 hrs Weight 68.039 kg Weight 68.039 kg Weight 67.086 kg Weight 68.674 kg Physical Exam 2 Narrative: General well-developed well-nourished male in no acute cardiopulmonary stress Oropharynx clear he has upper dentures CV regular rate and rhythm no loud murmurs Lungs clear to auscultation bilaterally moderate air movement no wheezes Abdomen positive bowel tones soft nontender Calves trace pretibial edema bilaterally Extremities left leg tenderness, surgical dressing in place with scant sanguinous drainage is noted, dorsal pedal pulses 2+ Skin warm and dry, surgical incision covered with dressing Mentation alert and oriented x 3 Urinary Catheter Management: Manrique: Cath Placed During This Visit: yes, but has since been removed by the nurse Reason for Continuing Indwelling Catheter: Required Immobilization for Trauma or Surgery or Anesthesia Urinary Catheter Date of Insertion: 07/21/25 Urinary Catheter Time of Insertion: 21:00 Date Urinary Catheter Removed: 07/23/25 Time Urinary Catheter Discontinued: 06:30 Data 07/23/25 04:02 07/23/25 04:02 A&P Assessment and plan 1. Closed intertrochanteric fracture of left femur: 2. BPH w urinary obs/LUTS: 3. Alcoholism, chronic: 4. Acute UTI: 5. Tobacco use disorder: Plan: Comminuted left intratrochanteric fracture Fall - Ground level fall - S/p ORIF of left hip with 07/22 - Encourage use of incentive spirometry - Multi-modal pain control - Pending PT/OT interventions and recommendations BPH - Continue home medication tamsulosin 0.4mg Daily Alcoholism - Cessation advised - Monitor for s/s of withdrawal and initiate CIWA protocols - Daily Thiamine 100mg and Folic acid 1mg Tobacco Use disorder - Smokes approx 1PPD - Cessation advised - PRN nicotine patch Acute UTI, POA - Pending Urine Culture - 1g IV Rocephin Daily - De-escalate antibiotics as appropriate Anemia - Hgb 8.80 - Pending Iron/TIBC - Monitor and transfuse for Hgb less than 7.0 DVT PPX: heparin GI PPX: Pepcid Code Status: Allow Natural PDMP PDMP Reviewed: Not Reviewed Attestations 2 Medical Necessity Statement*: Patient is admitted inpatient and will require greater than 2 midnights for his left hip fracture and management of co-morbidities. Coding Level of Care Code 38315 Diagnoses Closed intertrochanteric fracture of left femur S72.142A BPH w urinary obs/LUTS N40.1; N13.8 Alcoholism, chronic F10.20 Acute UTI N39.0 Tobacco use disorder F17.200
[2025-07-23] MEDS: HYDROcodone-acetaminophen 5-325 mg Tablet 1 TAB PO ×2 (08:53→18:05)
[2025-07-23] MEDS: cefTRIAXone 1,000 mg SDV 1000 MG IVP (08:54)
[2025-07-23 10:00] LABS: Iron 23 ug/dL (59-158); Total Iron Binding Capacity 138 mcg/dl; Unsaturated Iron Binding 115 ug/dL (112-347)
--- NOTE | 2025-07-23 11:34 | P.PN_ITS ---
Subjective 2 Subjective: Patient is postop day 1 from open reduction internal fixation left hip fracture. States his hip still hurts quite a bit but it feels a lot better. He is concerned about the fact that he will need to go to a jail for a while. He has a dog at home that needs to be taken care of. He is also concerned about cost Vitals/I&O/Wt Last Vital Signs Temp 98.1 F 07/23/25 05:00 Pulse 75 07/23/25 07:49 Resp 22 H 07/23/25 07:49 BP 124/75 07/23/25 07:49 Pulse Ox 98 07/23/25 07:49 O2 Del Method Nasal Cannula 07/23/25 07:48 O2 Flow Rate 2 07/23/25 07:48 07/22/25 07/23/25 07/23/25 22:59 06:59 14:59 Intake Total 1460 / 4400 440 / 4840 1000 / 1000 Output Total 400 / 1100 100 / 100 Balance 1460 / 3700 40 / 3740 900 / 900 Weight last 48 hrs Weight 150 lb Weight 150 lb Weight 147 lb 14.4 oz Weight 151 lb 6.4 oz Physical Exam 2 Narrative: Patient resting in bed today. Dressings are clear. He is tender to palpation about the left hip as to be expected. He is neurovasc intact distally Urinary Catheter Management: Manrique: Cath Placed During This Visit: yes, but has since been removed by the nurse Reason for Continuing Indwelling Catheter: Required Immobilization for Trauma or Surgery or Anesthesia Urinary Catheter Date of Insertion: 07/21/25 Urinary Catheter Time of Insertion: 21:00 Date Urinary Catheter Removed: 07/23/25 Time Urinary Catheter Discontinued: 06:30 Data 07/23/25 04:02 07/23/25 04:02 Micro: Microbiology 07/21/25 21:40 Urine Culture - Final Urine,Clean Catch A&P Assessment and plan 1. Closed displaced intertrochanteric fracture of left femur with routine healing, subsequent encounter: Patient's postop day 1 from open reduction internal fixation left intertrochanteric hip fracture. Patient is progressing well. Still having pain as to be expected. He will start physical therapy more than likely tomorrow for toe-touch weightbearing walker ambulation. Long-term plan is to place him into a nursing facility for at least a short stay if not permanently. Plan: Plan at this time is continuing with physical therapy for toe-touch weightbearing. Walker ambulation. Plans for discharge from the hospital to a nursing facility. PDMP PDMP Reviewed: Not Reviewed Attestations 2 Medical Necessity Statement*: Patient still in need of pain control as well as physical therapy Coding Level of Care Code Acute Code for Chg Fwd Diagnoses Closed displaced intertrochanteric fracture of left femur with routine healing, subsequent encounter S72.142D Encounter type: subsequent encounter Fracture alignment: displaced Fracture healing: with routine healing
[2025-07-23 14:00] LABS: Anion Gap 11.8 (5-19); Blood Urea Nitrogen 21 mg/dL (8-23); Calcium 7.7 mg/dL (8.5-10.5); Carbon Dioxide 23 mmol/L (22-29); Chloride 105 mmol/L (98-107); Glucose 141 mg/dL (65-115); Osmolality Calculated 285 mOsm/kg (285-295); Potassium 4.8 mmol/L (3.5-5.1); Sodium 135 mmol/L (136-145)
[2025-07-24] VITALS (7 sets, daily range): BP systolic 104–130; BP diastolic 61–77; PULSE 62–80; RESP 15–18; TEMP 36.3–36.8; O2SAT 92–97
[2025-07-24] MEDS: sennosides-docusate Tablet 2 TAB PO ×2 (04:23→16:49)
[2025-07-24] MEDS: multivitamin therapeutic Tablet 1 TAB PO (04:23)
[2025-07-24] MEDS: b-complex-vitamin c Tablet 1 EACH PO (04:23)
[2025-07-24] MEDS: mupirocin oint 22 gm 1 APPLIC NASAL ×2 (04:26→16:49)
[2025-07-24] MEDS: chlorhexidine gluconate 0.12% Btl 473 mL 30 ML MUCOUS MEM ×4 (04:27→21:02)
[2025-07-24] MEDS: cefTRIAXone 1,000 mg SDV 1000 MG IVP (04:30)
[2025-07-24 05:41] LABS: Hematocrit 22.8 % (37-53); Hemoglobin 7.40 g/dL (11.27-16.99); Mean Corpuscular HGB Conc 32.5 g/dL (30-55); Mean Corpuscular Hemoglobin 31.2 pg (27-33); Mean Corpuscular Volume 96.2 fl (82-101); Nucleated Red Blood Cells % 0 %; Platelet Count 91 10^3/cmm (157-399); Red Blood Count 2.37 10^6/uL (3.85-5.65); White Blood Count 7.13 10^3/uL (3.29-11.43)
[2025-07-24] MEDS: HYDROcodone-acetaminophen 5-325 mg Tablet 1 TAB PO ×3 (06:18→16:49)
--- NOTE | 2025-07-24 07:13 | PC.NURSE ---
Pt had a HGB level drop lower this morning. Pt was not actively bleeding through last reinforced dressing but after looking underneath it, pt was found to have a large amount of blood underneath. Dressing reinforced and dayshift nurse Shine made aware and said she will monitor it.
--- NOTE | 2025-07-24 10:46 | P.PN_ITS ---
Subjective 2 Subjective: Patient seen and examined at bedside on hospital rounds this morning. Patient working with physical therapy very unsteady even with walker, continued weakness and pain in his left leg. Patient has had no signs or symptoms of withdrawal, states that he has never had withdrawal symptoms before for his alcohol. Vital signs are stable, patient requiring oxygen supplementation via nasal cannula. Review of hemoglobin 7.40, will closely monitor platelet count 91. Creatinine improved 1.4 will encourage oral intake of food and fluids. Patient continues to work with PT/OT, recommendations for SNF level of care at discharge. Will also adhere to orthopedic surgeon Dr. Garcia's recommendations at discharge. Greatly appreciate case management in coordination of discharge and discharge planning. Vitals/I&O/Wt Last Vital Signs Temp 97.5 F L 07/24/25 07:25 Pulse 73 07/24/25 07:25 Resp 18 07/24/25 07:25 BP 119/72 07/24/25 07:25 Pulse Ox 97 07/24/25 07:25 O2 Del Method Nasal Cannula 07/24/25 07:25 O2 Flow Rate 2 07/24/25 08:00 07/23/25 07/24/25 07/24/25 22:59 06:59 14:59 Intake Total 360 / 1360 120 / 120 Output Total 300 / 400 410 / 810 Balance -300 / 600 -50 / 550 120 / 120 Weight last 48 hrs Weight 68.039 kg Weight 68.039 kg Physical Exam 2 Narrative: General well-developed well-nourished male in no acute cardiopulmonary stress Oropharynx clear he has upper dentures CV regular rate and rhythm no loud murmurs Lungs clear to auscultation bilaterally moderate air movement no wheezes Abdomen positive bowel tones soft nontender Calves trace pretibial edema bilaterally Extremities left leg tenderness, surgical dressing in place with scant sanguinous drainage is noted, dorsal pedal pulses 2+ Skin warm and dry, surgical incision covered with dressing Mentation alert and oriented x 3 Urinary Catheter Management: Manrique: Cath Placed During This Visit: yes, but has since been removed by the nurse Reason for Continuing Indwelling Catheter: Required Immobilization for Trauma or Surgery or Anesthesia Urinary Catheter Date of Insertion: 07/21/25 Urinary Catheter Time of Insertion: 21:00 Date Urinary Catheter Removed: 07/23/25 Time Urinary Catheter Discontinued: 06:30 Data 07/24/25 04:49 07/23/25 13:31 Micro: Microbiology 07/21/25 21:40 Urine Culture - Final Urine,Clean Catch A&P Assessment and plan 1. Closed intertrochanteric fracture of left femur: 2. BPH w urinary obs/LUTS: 3. Alcoholism, chronic: 4. Acute UTI: 5. Tobacco use disorder: Plan: Comminuted left intratrochanteric fracture Fall - Ground level fall - S/p ORIF of left hip with 07/22 - Encourage use of incentive spirometry - Multi-modal pain control - PT/OT interventions and recommendations appreciated - Appreciate Case Management with coordinate of discharge, he pending SNF authorization BPH - Continue home medication tamsulosin 0.4mg Daily Alcoholism - Cessation advised - Monitor for s/s of withdrawal and initiate CIWA protocols - Daily Thiamine 100mg and Folic acid 1mg Tobacco Use disorder - Smokes approx 1PPD - Cessation advised - PRN nicotine patch Acute UTI, POA - Urine culture with mixed urogenital jeaneth - 1g IV Rocephin Daily - De-escalate antibiotics as appropriate Anemia - Hgb 8.80--<7.40 - Iron 23, TIBC 138 - Continue on Iron and ascorbic acid supplementation - Monitor and transfuse for Hgb less than 7.0 DVT PPX: heparin GI PPX: Pepcid Code Status: Allow Natural PDMP PDMP Reviewed: Not Reviewed Attestations 2 Medical Necessity Statement*: Patient still needing inpatient interventions for continued PT/OT, pain management, and complex medical management. Coding Level of Care Code 12056 Diagnoses Closed intertrochanteric fracture of left femur S72.142A BPH w urinary obs/LUTS N40.1; N13.8 Alcoholism, chronic F10.20 Acute UTI N39.0 Tobacco use disorder F17.200
--- NOTE | 2025-07-24 12:45 | PC.SOCIAL ---
IMM Update pg 2 of IMM updated and reviewed w/ patient. Copy provided and copy dated, initialed and placed in chart.
[2025-07-25] VITALS (20 sets, daily range): BP systolic 92–169; BP diastolic 57–93; PULSE 64–105; RESP 16–20; TEMP 36.4–36.7; O2SAT 91–98
[2025-07-25] MEDS: cefTRIAXone 1,000 mg SDV 1000 MG IVP (04:59)
[2025-07-25] MEDS: b-complex-vitamin c Tablet 1 EACH PO (04:59)
[2025-07-25] MEDS: sennosides-docusate Tablet 2 TAB PO ×2 (04:59→16:35)
[2025-07-25] MEDS: multivitamin therapeutic Tablet 1 TAB PO (04:59)
[2025-07-25] MEDS: mupirocin oint 22 gm 1 APPLIC NASAL ×2 (05:01→16:36)
[2025-07-25] MEDS: chlorhexidine gluconate 0.12% Btl 473 mL 30 ML MUCOUS MEM ×3 (05:01→16:36)
[2025-07-25 07:09] LABS: Hematocrit 21.3 % (37-53); Hemoglobin 6.80 g/dL (11.27-16.99); Mean Corpuscular HGB Conc 31.9 g/dL (30-55); Mean Corpuscular Hemoglobin 30.9 pg (27-33); Mean Corpuscular Volume 96.8 fl (82-101); Nucleated Red Blood Cells % 0 %; Platelet Count 104 10^3/cmm (157-399); Red Blood Count 2.20 10^6/uL (3.85-5.65); White Blood Count 6.24 10^3/uL (3.29-11.43)
--- NOTE | 2025-07-25 07:41 | P.PN_ITS ---
Subjective 2 Subjective: Patient is a very pleasant 84-year-old male seen and examined at bedside on hospital rounds today. Patient sitting up in bedside chair stating left hip pain and just feeling weak. Spoke with patient about his hemoglobin 6.80, 2 unit packed red blood cells ordered and will transfuse later this morning. Patient is agreeable to going to retirement facility and states that he feels at this point in his life he probably needs a long-term care facility after skilled is completed. Patient has very supportive friends that will help him get his stuff moved. Greatly appreciate case management and coordination of discharge planning, currently just awaiting transfusion of blood and acceptance to retirement facility. Vital signs are stable, mildly low blood pressure, will continue to monitor. Vitals/I&O/Wt Last Vital Signs Temp 98.1 F 07/25/25 07:25 Pulse 73 07/25/25 07:25 Resp 20 H 07/25/25 07:25 BP 108/63 07/25/25 07:25 Pulse Ox 96 07/25/25 07:25 O2 Del Method Nasal Cannula 07/25/25 07:25 O2 Flow Rate 2 07/25/25 00:00 07/24/25 07/25/25 07/25/25 22:59 06:59 14:59 Intake Total 240 / 600 Output Total 550 / 900 200 / 1100 Balance -310 / -300 -200 / -500 Weight last 48 hrs Weight 73.17 kg Weight 68.039 kg Physical Exam 2 Narrative: General well-developed well-nourished male in no acute cardiopulmonary stress Oropharynx clear he has upper dentures CV regular rate and rhythm no loud murmurs Lungs clear to auscultation bilaterally moderate air movement no wheezes Abdomen positive bowel tones soft nontender Calves trace pretibial edema bilaterally Extremities left leg tenderness, surgical dressing in place with scant sanguinous drainage is noted, dorsal pedal pulses 2+ Skin warm and dry, surgical incision covered with dressing Mentation alert and oriented x 3 Urinary Catheter Management: Manrique: Cath Placed During This Visit: yes, but has since been removed by the nurse Reason for Continuing Indwelling Catheter: Required Immobilization for Trauma or Surgery or Anesthesia Urinary Catheter Date of Insertion: 07/21/25 Urinary Catheter Time of Insertion: 21:00 Date Urinary Catheter Removed: 07/23/25 Time Urinary Catheter Discontinued: 06:30 Data 07/25/25 06:36 07/23/25 13:31 A&P Assessment and plan 1. Closed intertrochanteric fracture of left femur: 2. BPH w urinary obs/LUTS: 3. Alcoholism, chronic: 4. Acute UTI: 5. Tobacco use disorder: Plan: Comminuted left intratrochanteric fracture, S/P ORIF Fall - Ground level fall - S/p ORIF of left hip with 07/22 - Encourage use of incentive spirometry - Multi-modal pain control - PT/OT interventions and recommendations appreciated - Appreciate Case Management with coordinate of discharge, pending SNF authorization BPH - Continue home medication tamsulosin 0.4mg Daily Alcoholism - Cessation advised - Monitor for s/s of withdrawal and initiate CIWA protocols - Daily Thiamine 100mg and Folic acid 1mg Tobacco Use disorder - Smokes approx 1PPD - Cessation advised - PRN nicotine patch Acute UTI, POA - Urine culture with mixed urogenital jeaneth - 1g IV Rocephin Daily, EOT 07/27 - De-escalate antibiotics as appropriate Anemia - Hgb 8.80--<7.40--<6.80 - Iron 23, TIBC 138 - Continue on Iron and ascorbic acid supplementation - Pending transfusion 2u pRBC's - Monitor and transfuse for Hgb less than 7.0 DVT PPX: heparin GI PPX: Pepcid Code Status: Allow Natural PDMP PDMP Reviewed: Not Reviewed Attestations 2 Medical Necessity Statement*: Patient still needing inpatient interventions for continued PT/OT, pain management, and complex medical management. Coding Level of Care Code 03774 Diagnoses Closed intertrochanteric fracture of left femur S72.142A BPH w urinary obs/LUTS N40.1; N13.8 Alcoholism, chronic F10.20 Acute UTI N39.0 Tobacco use disorder F17.200
[2025-07-25] MEDS: HYDROcodone-acetaminophen 5-325 mg Tablet 1 TAB PO ×2 (09:12→16:35)
[2025-07-25] MEDS: FUROsemide 10 mg/mL SDV 4mL 40 MG IVP (14:46)
[2025-07-25 20:13] LABS: Hematocrit 29.7 % (37-53); Hemoglobin 9.70 g/dL (11.27-16.99); Mean Corpuscular HGB Conc 32.7 g/dL (30-55); Mean Corpuscular Hemoglobin 30.5 pg (27-33); Mean Corpuscular Volume 93.4 fl (82-101); Nucleated Red Blood Cells % 0.3 %; Platelet Count 100 10^3/cmm (157-399); Red Blood Count 3.18 10^6/uL (3.85-5.65); White Blood Count 7.05 10^3/uL (3.29-11.43)
[2025-07-26 04:00] VITALS: BP 112/59; PULSE 106; RESP 17; TEMP 36.6; O2SAT 97
[2025-07-26] MEDS: b-complex-vitamin c Tablet 1 EACH PO (05:04)
[2025-07-26] MEDS: multivitamin therapeutic Tablet 1 TAB PO (05:04)
[2025-07-26] MEDS: cefTRIAXone 1,000 mg SDV 1000 MG IVP (05:04)
[2025-07-26] MEDS: mupirocin oint 22 gm 1 APPLIC NASAL (05:04)
[2025-07-26] MEDS: sennosides-docusate Tablet 2 TAB PO (05:04)
[2025-07-26] MEDS: chlorhexidine gluconate 0.12% Btl 473 mL 30 ML MUCOUS MEM (05:05)
[2025-07-26 06:00] VITALS: PULSE 67
[2025-07-26 06:20] LABS: Hematocrit 29.8 % (37-53); Hemoglobin 9.90 g/dL (11.27-16.99); Mean Corpuscular HGB Conc 33.2 g/dL (30-55); Mean Corpuscular Hemoglobin 31.2 pg (27-33); Mean Corpuscular Volume 94.0 fl (82-101); Nucleated Red Blood Cells % 0 %; Platelet Count 106 10^3/cmm (157-399); Red Blood Count 3.17 10^6/uL (3.85-5.65); White Blood Count 6.49 10^3/uL (3.29-11.43)
[2025-07-26 06:37] LABS: Slide Review Slide Review Perform
[2025-07-26 06:43] LABS: Alanine Aminotransferase < 5 U/L (0-41); Albumin Level 2.8 g/dL (3.5-5.2); Alkaline Phosphatase 43 U/L (40-130); Anion Gap 10.8 (5-19); Aspartate Amino Transferase 30 U/L (0-40); Blood Urea Nitrogen 14 mg/dL (8-23); Calcium 8.5 mg/dL (8.5-10.5); Carbon Dioxide 29 mmol/L (22-29); Chloride 103 mmol/L (98-107); Globulin 2.5 g/dL (1.3-4.6); Glucose 101 mg/dL (65-115); Magnesium 1.8 mg/dL (1.7-2.3); Osmolality Calculated 289 mOsm/kg (285-295); Potassium 3.8 mmol/L (3.5-5.1); Sodium 139 mmol/L (136-145); Total Protein 5.3 g/dL (6.6-8.7)
[2025-07-26 07:31] VITALS: BP 141/88; PULSE 65; RESP 17; TEMP 36.4; O2SAT 96
--- NOTE | 2025-07-26 09:02 | PM.DCS ---
Discharge Providers Date of Admission: 07/21/25 22:27 Date of Discharge: July 26, 2025 Attending Provider at Admission: Efrain Villalobos MD Attending Provider at Discharge: Alyse Gonzalez NP Primary Care Provider: Riddhi Vasquez MD Diagnoses at Discharge Discharge Diagnosis 1. Closed displaced intertrochanteric fracture of left femur with routine healing, subsequent encounter: 2. BPH w urinary obs/LUTS: 3. Alcoholism, chronic: 4. Acute UTI: 5. Tobacco use disorder: Reason for Visit Reason for Visit: ETOH/FALL Brief History: Admission: George William is a 84 year old male with history of alcoholism brought in after fall and left femoral neck fracture. He states he had 5 or 6 beers and typically tries to stop at 3 beers. He had taken the cab home and gotten out to go up the stairs to his apartment when he tangled his feet and fell. He could not get up due to the pain so ambulance was called. Patient is good historian Patient was admitted 2021 with rib fractures from a fall and then in 2023 he had a fall seen in the emergency department and had stitches also related to drinking. Patient states he decided at that time that drinking was his problem. He had been drinking 10-12 beers a day and he cut down to what he says is usually three 1 day a week. He was drinking at [employer] today and socializing. States he should have stopped it 3 beers. Patient states he lives alone with his dog. He does not use drugs or smoke weed. He smokes 2 packs of cigarettes every 3 days and states he smoked since he was 11 years old. His next of kin is not family because he is estranged from his younger sister and brother. His POA is Tato Hughes. Patient wants DNR status. Dad of motor vehicle accident mom with heart flutter but his family did not tell him that she until a week after she had and he was estranged from the family. Tells me that his sister who is 1.5 years younger than him of diabetes obesity greater than 500 pounds after leg amputations and also family did notify him. It does seem that he was not in touch with his family personally. Patient has no children reports he moved to [place] for his third . 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 he now lives alone except for him and his dog. He has power of science education professor and executor of will Tato Hughes. Hospital Course Hospital Course Comminuted left intratrochanteric fracture, S/P ORIF Fall - Ground level fall - S/p ORIF of left hip with 07/22 - Encourage use of incentive spirometry - Multi-modal pain control - PT/OT interventions and recommendations appreciated - Appreciate Case Management with coordinate of discharge, pending [facility] authorization BPH - Continue home medication tamsulosin 0.4mg Daily Alcoholism - Cessation advised - Monitor for s/s of withdrawal and initiate CIWA protocols - Daily Thiamine 100mg and Folic acid 1mg Tobacco Use disorder - Smokes approx 1PPD - Cessation advised - PRN nicotine patch Acute UTI, POA - Urine culture with mixed urogenital jeaneth - 1g IV Rocephin Daily, EOT 07/27 - De-escalate antibiotics as appropriate Anemia - Hgb 8.80--<7.40--<6.80--<9.9 - Iron 23, TIBC 138 - Continue on Iron and ascorbic acid supplementation - Transfused 2u pRBC's 07/25 - Monitor and transfuse for Hgb less than 7.0 Discharge: Patient has no anticoagulation at discharge with high risk of bleeding. Will need repeat CBC on Thursday - if Hgb remains stable will need evaluation for anticoagulation by provider at [place] - would suggest low dose sq lovenox daily, but will defer to PCP discression. Patient discharges in stable condition via transport. Advised follow-up with primary care provider in 1 to 2 days and orthopedic surgeon within 2 weeks of discharge. Greatly appreciate case management and coordination of discharge. All questions and concerns addressed the patient prior to discharge. Physical Exam Narrative: General well-developed well-nourished male in no acute cardiopulmonary stress Oropharynx clear he has upper dentures CV regular rate and rhythm no loud murmurs Lungs clear to auscultation bilaterally moderate air movement no wheezes Abdomen positive bowel tones soft nontender Calves trace pretibial edema bilaterally Extremities left leg tenderness, surgical dressing in place with scant sanguinous drainage is noted, dorsal pedal pulses 2+ Skin warm and dry, surgical incision covered with dressing Mentation alert and oriented x 3 Urinary Catheter Management: Manrique: Cath Placed During This Visit: yes, but has since been removed by the nurse Reason for Continuing Indwelling Catheter: Required Immobilization for Trauma or Surgery or Anesthesia Urinary Catheter Date of Insertion: 07/21/25 Urinary Catheter Time of Insertion: 21:00 Date Urinary Catheter Removed: 07/23/25 Time Urinary Catheter Discontinued: 06:30 Discharge Data Studies Completed and Pending Completed Studies During Hospitalization Category Date Time Status XR chest 1V portable [id number] Stat Exams 07/21/25 20:44 Completed XR hip LT 2-3V wo/w pel* [id number] Routine Exams 07/22/25 08:45 Completed XR hip LT 2-3V wo/w pel* [id number] Stat Exams 07/21/25 20:38 Completed Radiology Impressions Chest X-Ray 07/21/25 20:44 IMPRESSION: No acute infiltrate or effusion. Hip/Pelvis X-Ray 07/22/25 08:45 IMPRESSION: Intraoperative imaging during ORIF LEFT hip fracture. Fracture in good position and alignment by C-arm imaging. Laboratory Results WBC 6.49 10^3/uL (3.29-11.43) 07/26/25 05:57 RBC 3.17 10^6/uL (3.85-5.65) L 07/26/25 05:57 Hgb 9.90 g/dL (11.27-16.99) L 07/26/25 05:57 Hct 29.8 % (37-53) L 07/26/25 05:57 MCV 94.0 fl (82-101) 07/26/25 05:57 MCH 31.2 pg (27-33) 07/26/25 05:57 MCHC 33.2 g/dL (30-55) 07/26/25 05:57 RDW 14.8 % (12.1-15.1) 07/26/25 05:57 Plt Count 106 10^3/cmm (157-399) L 07/26/25 05:57 MPV 11.7 fL (7.4-10.4) H 07/26/25 05:57 Neut % (Auto) 49.7 % 07/26/25 05:57 Lymph % (Auto) 33.4 % 07/26/25 05:57 [place] % (Auto) 13.1 % 07/26/25 05:57 Eos % (Auto) 2.0 % 07/26/25 05:57 Baso % (Auto) 0.6 % 07/26/25 05:57 Neut # (Auto) 3.22 10^3/uL (1.8-7.7) 07/26/25 05:57 Lymph # (Auto) 2.2 10^3/uL (0.8-4.8) 07/26/25 05:57 [place] # (Auto) 0.9 10^3/uL (0.2-0.9) 07/26/25 05:57 Eos # (Auto) 0.1 10^3/uL (0.0-0.8) 07/26/25 05:57 Baso # (Auto) 0.0 10^3/uL (0.0-0.1) 07/26/25 05:57 Nucleated RBC % (auto) 0 % 07/26/25 05:57 Nucleated RBCs # 0.0 /100WBC 07/26/25 05:57 Sodium 139 mmol/L (136-145) 07/26/25 05:57 Potassium 3.8 mmol/L (3.5-5.1) 07/26/25 05:57 Chloride 103 mmol/L (98-107) 07/26/25 05:57 Carbon Dioxide 29 mmol/L (22-29) 07/26/25 05:57 Anion Gap 10.8 (5-19) 07/26/25 05:57 BUN 14 mg/dL (8-23) 07/26/25 05:57 Creatinine 1.3 mg/dL (0.7-1.2) H 07/26/25 05:57 GFR Calculation Not Reportable 07/26/25 05:57 Glucose 101 mg/dL (65-115) 07/26/25 05:57 Calculated Osmolality 289 mOsm/kg (285-295) 07/26/25 05:57 Calcium 8.5 mg/dL (8.5-10.5) 07/26/25 05:57 Phosphorus 2.8 mg/dL (2.5-4.5) 07/21/25 21:03 Magnesium 1.8 mg/dL (1.7-2.3) 07/26/25 05:57 Iron 23 ug/dL (59-158) L 07/23/25 04:02 TIBC 138 mcg/dl 07/23/25 04:02 % Saturation 16.6 % (20-50) L 07/23/25 04:02 Unsat Iron Binding 115 ug/dL (112-347) 07/23/25 04:02 Total Bilirubin 1.0 mg/dL (0.15-1.2) 07/26/25 05:57 AST 30 U/L (0-40) 07/26/25 05:57 ALT < 5 U/L (0-41) 07/26/25 05:57 Alkaline Phosphatase 43 U/L (40-130) 07/26/25 05:57 Total Protein 5.3 g/dL (6.6-8.7) L 07/26/25 05:57 Albumin 2.8 g/dL (3.5-5.2) L 07/26/25 05:57 Globulin 2.5 g/dL (1.3-4.6) 07/26/25 05:57 Urine Color Yellow (Yellow) 07/21/25 21:40 Urine Appearance Cloudy (CLEAR) A 07/21/25 21:40 Urine pH 5.5 (5-7) 07/21/25 21:40 Ur Specific [place] 1.005 (1.005-1.030) 07/21/25 21:40 Urine Protein Trace (Negative) A 07/21/25 21:40 Urine Glucose (UA) Negative (Normal) 07/21/25 21:40 Urine Ketones Negative (Negative) 07/21/25 21:40 Urine Blood 3+ (Negative) A 07/21/25 21:40 Urine Nitrate Negative (Negative) 07/21/25 21:40 Urine Bilirubin Negative (Negative) 07/21/25 21:40 Urine Urobilinogen 0.2 mg/dL (Negative) 07/21/25 21:40 Ur Leukocyte Esterase 3+ (Negative) A 07/21/25 21:40 Urine RBC 21-50 /hpf (0-2) H 07/21/25 21:40 Urine WBC >100 /hpf (0-5) H 07/21/25 21:40 Ur Squamous Epith Cells 0-5 /hpf (0-5) 07/21/25 21:40 Amorphous Sediment Not Reportable 07/21/25 21:40 Urine Bacteria 1+ /hpf (NONE) H 07/21/25 21:40 Hyaline Casts 3.30 /lpf 07/21/25 21:40 Urine Opiates Screen Positive ng/mL (Negative) H 07/21/25 21:40 Ur Barbiturates Screen Negative ng/mL (Negative) 07/21/25 21:40 Ur Phencyclidine Scrn Negative ng/mL (Negative) 07/21/25 21:40 Ur Amphetamines Screen Negative ng/mL (Negative) 07/21/25 21:40 U Benzodiazepines Scrn Negative ng/mL (Negative) 07/21/25 21:40 Urine Cocaine Screen Negative ng/mL (Negative) 07/21/25 21:40 U Marijuana (THC) Screen Negative ng/mL (Negative) 07/21/25 21:40 Ethyl Alcohol 71 mg/dL (0-10) H 07/21/25 21:03 Blood Type B Negative 07/25/25 08:40 Rho(D) Type Rh negative 07/25/25 08:40 Antibody Screen Negative 07/25/25 08:40 Crossmatch See Detail 07/25/25 08:40 Vitals Last Vital Signs Temp 97.6 F 07/26/25 07:31 Pulse 65 07/26/25 07:31 Resp 17 07/26/25 07:31 BP 141/88 07/26/25 07:31 Pulse Ox 96 07/26/25 07:31 O2 Del Method Room Air 07/26/25 07:31 O2 Flow Rate 2 07/25/25 08:00 Discharge Plan Discharge Patient Disposition: Xfer SNF Condition: Stable Prescriptions: New ascorbic acid (vitamin C) [Vitamin C] 500 mg Tablet 500 mg PO DAILY 30 Days Qty: 30 0RF docusate sodium 100 mg Capsule 100 mg PO BID Qty: 30 0RF hydrocodone-acetaminophen 5-325 mg Tablet 1 tab PO Q4H PRN (Reason: Moderate Pain) 3 Days Qty: 12 0RF polysaccharide iron complex [Ferrex 150] 150 mg iron Capsule 150 mg PO BIDWM Qty: 60 0RF famotidine 20 mg Tablet 20 mg PO BID 30 Days Qty: 60 0RF folic acid 1 mg Tablet 1 mg PO DAILY 30 Days Qty: 30 0RF nicotine 21 mg/24 hr Patch 24 Hour 1 patch transdermal DAILY Qty: 28 0RF thiamine mononitrate (vit B1) [Vitamin B-1 (mononitrate)] 100 mg Tablet 100 mg PO DAILY Qty: 30 0RF Continued acetaminophen 500 mg Tablet 650 mg PO Q8H PRN (Reason: pain) Qty: 0 0RF tamsulosin 0.4 mg Capsule 0.4 mg PO BID finasteride 5 mg Tablet 5 mg PO DAILY multivitamin Tablet 1 tab PO QAM vitamin B complex Tablet 1 tab PO DAILY Held ergocalciferol (vitamin D2) [Vitamin D2] 1,250 mcg (50,000 unit) Capsule 1,250 mcg PO Q7D Hold Instructions: Resume on 08/10/25. Resume under the direction of PCP Discharge Order = DC NOW: Discharge Order (Routine); Ordered 07/26/25 Ordered By: Alyse Gonzalez Referrals: [facility] [Outside] Reyes Garcia MD [Physician, Orthopedics] - 08/07/25 2:30 pm Riddhi Vasquez MD [Primary Care Provider, Family Practice] - 1-3 days Discharge Diet: Usual diet Discharge Activity: Limit activity as instructed and As per PT/OT instructions Patient Instructions: Hydrocodone/Acetaminophen (By mouth), Thiamine (By mouth), Acute Wound Care (DC), Opioid Safety, Post Anesthesia Care, Patient Portal & Analy Instructions Activity Restrictions/Additional Instructions: Plan at this time is continuing with physical therapy for toe-touch weightbearing. Walker ambulation. Patient will need repeat CBC on Thursday07/28/25 with re-evaluation of anticoagulation with attending at [place]. Held anticoagulation due to high bleeding risk. Discharge Attestations Time Spent in Discharge Care*: greater than 30 min Quality Metrics Clinical Quality Measures [ No reported AMI, CVA or VTE this stay] Coding Level of Care Code 28059 Diagnoses Closed displaced intertrochanteric fracture of left femur with routine healing, subsequent encounter S72.142D Encounter type: subsequent encounter Fracture alignment: displaced Fracture healing: with routine healing BPH w urinary obs/LUTS N40.1; N13.8 Alcoholism, chronic F10.20 Acute UTI N39.0 Tobacco use disorder F17.200
[2025-07-26 11:44] VITALS: BP 101/58; PULSE 76; RESP 18; TEMP 36.3; O2SAT 96
[2025-07-26 13:23] VITALS: BP 101/58; PULSE 76; RESP 18; TEMP 36.3; O2SAT 96
--- NOTE | 2025-07-26 13:24 | PC.OT ---
OT TREATMENT HELD TODAY DUE TO SCHEDULED PATIENT D/ C TODAY
--- NOTE | 2025-07-26 14:11 | PC.NURSE ---
Call [facility] at 1248 spoke to Jackie. Stated would get the nurse for me. Phone went to voice mail. The admit nurse from from [facility] called back to get information but could not take report. This person stated they would call back to get report. That nurse was probably at lunch. At 1323 Shine Veronica RN called this nurse for report from [facility]. Patient left the floor at 1400.
--- NOTE | 2025-07-26 15:27 | PC.SOCIAL ---
IMM Update pg 2 of IMM updated and reviewed w/ patient. Copy provided and copy dated, initialed and placed in chart.
== END 2025-07-26 14:00 | disposition skilled nursing facility (03) | DRG 481 ==
LOC: ER 22:31 → MEDSURG 22:47
PROVIDERS: Orthopaedic Surgery; Admitting Provider Internal Medicine; Emergency Provider Physician Assistant; PCP Family Medicine; Visit Provider Registered Nurse
PROC: 0QS706Z Reposition Left Upper Femur with Intramedullary Internal Fixation Device, Open Approach (ICD-10-PCS; principal; 2025-07-22 09:00)
DX: S72.142A Displaced intertrochanteric fracture of left femur, initial encounter for closed fracture (principal); N39.0 Urinary tract infection, site not specified; N40.1 Benign prostatic hyperplasia with lower urinary tract symptoms; F10.20 Alcohol dependence, uncomplicated; F17.210 Nicotine dependence, cigarettes, uncomplicated; Z88.2 Allergy status to sulfonamides; D64.9 Anemia, unspecified; W01.0XXA Fall on same level from slipping, tripping and stumbling without subsequent striking against object, initial encounter
CPT/HCPCS: 36415; 36430; 51702; 71045; 73502; 76000; 80048; 80053; 80306; 80307; 81001; 83540; 83550; 83735; 84100; 85025; 86850; 86900; 86920; 87086; 93005; 96372; 96374; 96375; 97110; 97161; 97167; 97530; 99285; C1713; J0690; J0696; J1100; J1644; J1938; J2270; J2371; J2405; J2704; J3010; J3480; J7030; J7050; J9999; P9016; P9045

== ENCOUNTER → 2025-08-07 09:12 | Outpatient (BNVA) | payer OTHER, SELFPAY | PROVIDERS: PCP Family Medicine; Visit Provider Orthopaedic Surgery | DX: S72.142D Displaced intertrochanteric fracture of left femur, subsequent encounter for closed fracture with routine healing (principal); X58.XXXD Exposure to other specified factors, subsequent encounter | CPT/HCPCS: 73502; 99024 ==